=== PATIENT | male | born 1970 | race Caucasian/White ===

== ENCOUNTER 2018-11-28 13:55 | Emergency (ER) | payer SELFPAY ==
[2018-11-28 13:56] VITALS: BP 193/89; PULSE 74; RESP 16; TEMP 36.6; O2SAT 96; BMI 33.1
--- NOTE | 2018-11-28 14:54 | ED.VISSUMM ---
- ER Visit Summary Date of Service: 11/28/18 Chief Complaint: Lower paraspinal back pain History of Present Illness: The patient is a 47 M no significant past medical history. Patient states he does a lot of moving of furniture. Today he developed lower paraspinal back pain. Worse with movement. He denies any recent falls or trauma. He denies any dysuria or hematuria. No fever. He does state however he has been urinating frequently lately. He feels like he empties his bladder but he says especially at night he has to go again in about an hour. He has no history of diabetes but his dad has a history of diabetes. Patient denies any weight change. He denies any weakness in either upper or lower extremities. He denies any numbness or tingling. He denies any bowel or bladder incontinence. No prior back surgery. Physical Examination: Well-appearing middle-age male. Vital signs are stable. He is afebrile. He does not look septic or toxic. He is in no distress. HEENT exam unremarkable. Neck is nontender no lymphadenopathy. Lungs clear to auscultation bilaterally. Heart is regular rhythm without murmur. Abdomen is soft and nontender. Normal bowel sounds no peritoneal signs. Patient is moving all 4 extremities. Neurovascular intact. He has normal motor strength and sensation in both lower extremities. 5 out of 5 dorsi plantar flexion. Negative straight leg raise bilaterally. Normal medial thigh sensation. No cauda equina. No saddle anesthesia. Back his spine is nontender. There is no signs of trauma. There is no redness or warmth. He is bilateral paraspinal soft tissue tenderness consistent with the musculature of the lower spine. Neurologically is awake and alert with no focal motor or sensory deficits. Normal motor strength and sensation. He is able to stand and walk without any difficulty. Test Results: Urinalysis shows no signs of infection. No blood or white cells. There was protein in his urine and bowels and glucose along with some ketones. This may be consistent with the patient being new onset diabetes. There is a hemoglobin A1c pending. Bladder scan shows only 12 mL's of urine. No urinary retention. BG T equals 206. Emergency Department Course and Treatment: Patient's history and exam are consistent with myofascial para lumbar muscle strain. The urinary frequency is going to be evaluated and his father had diabetes so we will check a BG T. Repeat exam patient doing well at 16:25. I did add a hemoglobin A1c. He will need follow-up with the primary care physician as an outpatient to determine if his new onset diabetes. His sodium and on Metformin. Treatment Plan: Outpatient follow-up for evaluation for possible new onset diabetes. Disposition: Discharge Impression: Paralumbar back muscle strain Urinary frequency with hyperglycemia therefore rule out new onset diabetes Hemoglobin A1c pending. This note was generated with [employer] dictation software. It may contain incorrect words, spelling, and punctuation that were not noted in review of the chart prior to signing ED Disposition - Plan for ED Patient: Referrals: Care Physician,No Primary [Primary Care Provider] -
[2018-11-28 16:07] LABS: Color, Urine Yellow (Yellow); Glucose, Dipstick 1000 mg/dl (Normal); Ketone-Dipstick 5 mg/dl (Negative); Leukocyte Esterase-Dipstick Negative /ul (Negative); Nitrite-Dipstick Negative (Negative); Occult Blood-Urine Negative /ul (Negative); Protein-Dipstick 15 mg/dl (Negative); Urine Bilirubin Dipstick Negative (Negative); Urine Clarity Clear (Clear); Urine Urobilinogen Normal (Normal)
[2018-11-28 16:08] LABS: Bacteria 0 SEEN /hpf (None Seen); Mucous, Urine 0 SEEN /hpf (<or=2+); Red Blood Cells-Urine 0 SEEN /hpf (0-5); Squamous Epithelial Cells - UA 0 SEEN /hpf (0-5); White Blood Cells 0 SEEN /hpf (0-5)
[2018-11-28] MEDS: Ibuprofen 600 MG Tablet PO (16:16)
[2018-11-28 16:18] LABS: Hyaline Cast 0-5 SEEN /lpf (0-5)
[2018-11-28 16:26] LABS: Bedside Glucose 206 mg/dL (70-110)
--- NOTE | 2018-11-28 16:28 | ED.DEP ---
ED Disposition - Plan for ED Patient: Disposition: Home or Assisted Living Instructions: ED Sprain Strain Lumbar, ED Hyperglycemia New Susp Diabetes Referrals: Zia Urrutia MD [STAFF PHYSICIAN] - As soon as possible Additional Instructions: Her back pain is consistent with strain of the muscles in your back. Tylenol and Motrin for pain. Hot shower and massage. Your blood sugar is elevated at 206. He also had glucose in your urine this may be consistent with new onset diabetes. I sent a test called a hemoglobin A1c that will determine what your blood sugars have been over the last several months. He need to follow-up with a primary care physician and have this reevaluated and determine if you need to be started on oral diabetic medication.
--- NOTE | 2018-11-28 16:42 | ED.VISSUMM ---
- ER Visit Summary Date of Service: 11/28/18 Chief Complaint: [] History of Present Illness: The patient is a 47 M [] Physical Examination: [] Test Results: [] Emergency Department Course and Treatment: [] Treatment Plan: [] Disposition: [] Impression: [] This note was generated with [email or web address] dictation software. It may contain incorrect words, spelling, and punctuation that were not noted in review of the chart prior to signing ED Disposition - Plan for ED Patient: Disposition: Home or Assisted Living Instructions: ED Sprain Strain Lumbar, ED Hyperglycemia New Susp Diabetes Prescriptions: Cyclobenzaprine [Flexeril] 10 mg PO TID PRN #15 tab PRN Reason: Muscle Spasm Referrals: Zia Urrutia MD [STAFF PHYSICIAN] - As soon as possible Additional Instructions: Her back pain is consistent with strain of the muscles in your back. Tylenol and Motrin for pain. Hot shower and massage. Your blood sugar is elevated at 206. He also had glucose in your urine this may be consistent with new onset diabetes. I sent a test called a hemoglobin A1c that will determine what your blood sugars have been over the last several months. He need to follow-up with a primary care physician and have this reevaluated and determine if you need to be started on oral diabetic medication.
--- NOTE | 2018-11-28 16:48 | ED.RN ---
dr marti off shift. discussed pt request for flexeril. with dr martinez. rx ordered.
[2018-11-28 17:04] LABS: Hemoglobin A1c 9.4 % (4.2-6.3)
== END 2018-11-28 16:49 | disposition home or self-care (01) ==
PROVIDERS: Emergency Provider Emergency Medicine
DX: S39.012A Strain of muscle, fascia and tendon of lower back, initial encounter (principal); X58.XXXA Exposure to other specified factors, initial encounter; Y93.9 Activity, unspecified; Y92.9 Unspecified place or not applicable; Y99.9 Unspecified external cause status; R35.0 Frequency of micturition; R73.9 Hyperglycemia, unspecified; Z72.0 Tobacco use; Z83.3 Family history of diabetes mellitus
CPT/HCPCS: 81001; 82962; 83036; 99283

== ENCOUNTER 2022-02-05 14:53 | Emergency (ER) | payer BC, SELFPAY ==
[2022-02-05 14:54] VITALS: BP 149/82; PULSE 94; RESP 18; TEMP 36.8; O2SAT 99; BMI 31.5
--- NOTE | 2022-02-05 15:22 | EDS_ITS ---
HPI History of Present Illness Chief Complaint: General Illness Informant: patient and spouse/S.O. Onset/Context/Timing Onset: Days (3-4) Context: Gradual Onset Timing: Continuous Quality: Achy, coughing Location: All over Current Severity: Moderate Maximum Severity: Moderate Worsened by: Nothing Relieved by: nothing Associated Symptoms Associated Symptoms: Fevers up to 101.5, chills, malaise/fatigue, myalgias Associated Symptoms ED: cough Narrative Narrative: Patient with generalized symptoms, fevers, chills, cough for the last 3 to 4 days. Unvaccinated against COVID. He is an insulin-dependent diabetic. States he had some tingling in his fingers for an hour or so this morning but it was on both sides, symmetric and gone since then without weakness or other focal neurologic symptoms. Last time he checked his blood sugar was yesterday and it was 260, he states that is not unusual for him. No known sick contacts. Presents with family members who are not ill yet. No travel out of the area/country. [facility] Medical History (Updated 02/05/22 @ 21:[address] Desean Peterson MD) IDDM (insulin dependent diabetes mellitus) Home Medications levofloxacin 750 mg PO DAILY 5 Days #5 tab 02/05/22 [Rx Last Taken Unknown] Allergy/AdvReac Type Severity Reaction Status Date / Time naproxen [From Aleve] Allergy Other Verified 02/05/22 14:57 Social History Smoking Status: Current every day smoker tobacco type: cigarettes ROS ROS ED Constitutional Constitutional ED: Reports body ache(s), chills, fatigue, fever(s), headache(s) and malaise Eyes Eyes: Denies change in vision or diplopia ENT ENT ED: Denies rhinorrhea or sore throat Cardiovascular Cardiovascular: Denies chest pain or palpitations Respiratory/Chest Respiratory/Chest: Reports cough; Denies dyspnea or dyspnea on exertion Gastrointestinal Gastrointestinal: Denies abdominal pain, diarrhea, nausea or vomiting Genitourinary Genitourinary ED: Denies dysuria or hematuria Musculoskeletal Musculoskeletal: Denies back pain or neck pain Integumentary Denies abscess or rash Neurologic Neurologic: Reports headache(s); Denies paresthesias or weakness Psychiatric Psychiatric: Denies anxiety or suicidal thoughts EXAM Physical Exam Const Vital Signs: 02/05/22 14:54 02/05/22 15:46 02/05/22 16:48 Temperature 98.2 F Temperature Source Temporal Pulse Rate 94 79 Respiratory Rate 18 18 Respiratory Effort Normal Respiratory Pattern Normal Blood Pressure 149/82 H 126/68 H Blood Pressure Mean 104 87 Pulse Ox 99 92 Oxygen Delivery Method Room Air Room Air Positive well nourished and well developed Constitutional Narrative: Malaised-appearing, no distress General Appearance ED: well developed and NAD HEENT Reports moist mucous membranes normocephalic and atraumatic Eyes PERRL and EOMs intact bilaterally Neck full ROM and supple Resp normal respiratory effort and clear to auscultation bilaterally Cardio regular rate, regular rhythm and no murmurs Rate: Negative for tachycardic GI non-tender and non-distended Auscultation: normoactive bowel sounds Palpation: soft Back/Spine no CVA tenderness General Back: other FROM Extremity normal to inspection and no calf tenderness General Extremety ED: Negative for edema, pulses abnormal or tenderness General Extremity: Negative for edema or pulses abnormal Neuro oriented x3, CN's II-XII intact bilaterally and no sensory deficits noted Sensorium / Orientation: awake and alert Motor Exam: strength 5/5 throughout Skin no rashes or lesions noted and no wounds MDM MDM MDM Narrative Medical decision making narrative: 1 view chest x-ray showing bibasilar mild opacities on my interpretation. Radiology in agreement, unclear if these are infiltrates or atelectasis. His rapid COVID and rapid influenza swabs both returned negative. His blood sugar is 304, he is on a sliding scale and can treat that it himself at home. As I discussed with the patient, since he is unvaccinated I think this is COVID until proven otherwise. He needs PCR to determine if this is a false negative rapid test which is more likely to occur in this current phase of the pandemic when omicron type II is the most prominent subtype at this time. He understands this but did not want to wait for the swab and wanted to go home. I reviewed his results later, the PCR did return negative, I called him and told him this and discussed the prescription for Levaquin that I sent in for him to start when he can get it filled. He had no questions concerning this. It certainly is possible his chest x-ray represents bibasilar atelectasis, and he actually does have a viral etiology that is not bacterial. Lab Data Attestation: I reviewed the patient's lab results. Labs: Laboratory Results - last 24 hr 02/05/22 02/05/22 15:36 17:15 COVID-19 (NEGRA) Not Detected POC Glucose 304 H Radiography Diagnostic Testing: Clinical Impression(s) from Imaging Studies Chest X-Ray 02/05/22 15:50 IMPRESSION: Bibasilar opacities, right more than left, suggesting infiltrates or atelectasis. Electronically Signed: Jason Livingston MD ([place]) at 16:04 EDT , Discharge Plan Triage Chief Complaint: General Illness ED Provider: Desean Peterson Dx/Rx/DC Orders Clinical Impression: Acute viral syndrome, Atypical pneumonia Instructions: Coronavirus Disease 2019 (COVID-19): Caring for Yourself or Others Prescriptions: New levofloxacin 750 mg tablet 750 mg PO DAILY 5 Days Qty: 5 RF: 0 Primary Care Provider: Care Physician,No Primary Referrals: Cody Swift DO [STAFF PHYSICIAN] - 1 Week if not improving Activity Restrictions/Additional Instructions: Try to get a home portable pulse oximeter and closely watch your oxygen levels periodically. If you stay below 90% for more than a minute or so, and/or you are feeling like your breathing is getting worse, return to the emergency department for further evaluation. Disposition Disposition: Home, Self Care Discharge Date/Time: 02/05/22 17:22
[2022-02-05 15:46] LABS: Bedside Glucose 304 mg/dL (74-106)
--- NOTE | 2022-02-05 15:50 | RAD_ITS ---
STUDY: X-RAY CHEST REASON FOR EXAM: Male, 51 years old. cough, fever TECHNIQUE: AP COMPARISON: None. FINDINGS: Elevation of the right hemidiaphragm with ill-defined opacity in the right lung base. Mild reticulation in the retrocardiac left lower lobe. There is no demonstrated pleural abnormality. Normal size heart. Normal mediastinum and swapnil. Normal visualized pulmonary arteries. Normal visualized aortic arch and descending thoracic aorta. No acute bony process. There is no demonstrated abnormality of the visualized soft tissue structures of the upper abdomen. RAD/Chest 1 View (Portable) IMPRESSION: Bibasilar opacities, right more than left, suggesting infiltrates or atelectasis. Electronically Signed: Jason Livingston MD ([place]) at 16:04 EDT Reading Location ID and State: [id number] , Service support ,
[2022-02-05 16:48] VITALS: BP 126/68; PULSE 79; RESP 18; O2SAT 92
== END 2022-02-05 17:22 | disposition home or self-care (01) ==
PROVIDERS: Emergency Provider Emergency Medicine; Visit Provider Emergency Medicine
DX: J18.9 Pneumonia, unspecified organism (principal); E11.9 Type 2 diabetes mellitus without complications; Z79.4 Long term (current) use of insulin; B34.9 Viral infection, unspecified; M79.10 Myalgia, unspecified site; Z20.822 Contact with and (suspected) exposure to COVID-19; Z28.310 Unvaccinated for COVID-19; F17.210 Nicotine dependence, cigarettes, uncomplicated
CPT/HCPCS: 71045; 82962; 87428; 87635; 99282; U0003; U0005

== ENCOUNTER 2023-07-18 07:17 | Emergency (ER) | payer BC, SELFPAY ==
[2023-07-18 07:17] VITALS: BP 179/88; PULSE 80; RESP 16; TEMP 36.6; O2SAT 99; BMI 29.2
--- NOTE | 2023-07-18 07:37 | ED.VIS.DENTA ---
HPI History of Present Illness Chief Complaint: Dental Informant: patient Narrative Narrative: 52-year-old diabetic male on Trulicity presenting to the emergency department with right lower dental pain. Patient states he has had problems with this tooth for a time. He has seen dentist who recommended he get his hemoglobin A1c better controlled before procedures. He states he has been told he needs to have multiple teeth extracted. He notes recently the pain has increased. He denies any swelling. He has been taking ibuprofen a couple times a day which helps but he still waking up with pain over the past several days. No fevers. He denies any fever or facial erythema. No drainage of pus. The tooth has been broken and he is filed it because it was cutting his oral mucosa. [facility] Medical History IDDM (insulin dependent diabetes mellitus) Home Medications levofloxacin 750 mg tablet 750 mg PO DAILY 5 days #5 tabs 02/05/22 [Rx Last Taken Unknown] oxycodone-acetaminophen 5 mg-325 mg tablet 1 tab PO Q6H PRN PRN Pain 3 days #12 TABLETS 07/18/23 [Rx Last Taken Unknown] penicillin V potassium 250 mg tablet 500 mg (2 x 250 mg) PO 4X/DAY #40 tabs 07/18/23 [Rx Last Taken Unknown] Allergy/AdvReac Type Severity Reaction Status Date / Time naproxen [From Aleve] Allergy Other Verified 07/18/23 07:19 Social History Smoking Status: Current every day smoker tobacco type: cigarettes ROS ROS ED Constitutional Constitutional ED: Denies chills or weight loss Eyes Eyes: Denies change in vision or diplopia ENT ENT ED: Reports other Details: Dental pain radiating to the right side of neck ; Denies ear pain, rhinorrhea or sore throat Cardiovascular Cardiovascular: Denies chest pain, orthopnea, palpitations or racing heartbeat Respiratory/Chest Respiratory/Chest: Denies cough, dyspnea or orthopnea Gastrointestinal Gastrointestinal: Denies abdominal pain, diarrhea, nausea or vomiting Genitourinary Genitourinary ED: Denies dysuria, hematuria or urinary frequency Musculoskeletal Musculoskeletal: Reports neck pain; Denies arthralgias, back pain or myalgias Integumentary Denies abscess or rash Neurologic Neurologic: Denies headache(s) or weakness Psychiatric Psychiatric: Denies anxiety, depression, suicidal ideation or suicidal thoughts Endocrine Endocrinology: Denies polydipsia, polyphagia or polyuria Allergic/Immunologic Allergic/Immunologic ED: Denies mouth swelling, tongue swelling or urticaria EXAM Physical Exam Narrative Exam Narrative: Well-appearing male sitting comfortably on the bed. Const Vital Signs: 07/18/23 07:17 Temperature 97.9 F Temperature Source Temporal Pulse Rate 80 Respiratory Rate 16 Blood Pressure 179/88 H Blood Pressure Mean 118 Pulse Ox 99 Oxygen Delivery Method Room Air Positive well nourished and well developed General Appearance ED: well developed HEENT Reports normocephalic, head/scalp atraumatic and moist mucous membranes HEENT Narrative: Patient is handling secretions normally. There is no trismus. There is no facial erythema or swelling noted. There is multiple areas of dental decay. Floor the mouth is soft. Right lower molar is decayed with dental body loss. There is no focal abscess requiring drainage. Eyes PERRL and EOMs intact bilaterally Neck no lymphadenopathy, supple and no JVD Resp normal respiratory effort and clear to auscultation bilaterally Cardio regular rate, regular rhythm and no murmurs GI normal to inspection, nondistended, normoactive bowel sounds and non-tender Palpation: soft Back/Spine no CVA tenderness and normal ROM Extremity normal to inspection General Extremety ED: Negative for edema General Extremity: Negative for edema Neuro oriented x3 and CN's II-XII intact bilaterally Sensorium / Orientation: alert Motor Exam: strength 5/5 throughout Psych mental status grossly normal Mood & Affect: Negative for depressed or tearful Skin no rashes or lesions noted and no wounds MDM MDM MDM Narrative Medical decision making narrative: Patient was encouraged to take food with his ibuprofen. I will write for him to have some penicillin as well as a few [place]. He is to follow-up with dentistry. 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 He is to avoid smoking. Discharge Plan Triage Chief Complaint: Dental ED Provider: Hossein Lord Dx/Rx/DC Orders Clinical Impression: Dental cavity, Pain, dental Instructions: ED Dental Pain, ED Dental Cavity Prescriptions: New oxycodone-acetaminophen [oxycodone-acetaminophen] 5-325 mg tablet 1 tab PO Q6H PRN PRN (Reason: Pain) 3 Days Qty: 12 0RF penicillin V potassium 250 mg tablet 500 mg PO 4X/DAY Qty: 40 0RF No Action levofloxacin 750 mg tablet 750 mg PO DAILY 5 Days Qty: 5 0RF Primary Care Provider: Care Physician,No Primary Referrals: Care Physician,No Primary [Primary Care Provider] - Activity Restrictions/Additional Instructions: Be sure to take the entire course of antibiotics. Please follow-up with dentistry as soon as you are able. Continue to monitor your blood sugars and follow-up with your doctor. 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 Disposition Disposition: Home, Self Care
== END 2023-07-18 07:50 | disposition home or self-care (01) ==
LOC: ED 07:45
PROVIDERS: Emergency Provider Emergency Medicine; Visit Provider Emergency Medicine
DX: K08.89 Other specified disorders of teeth and supporting structures (principal); E11.9 Type 2 diabetes mellitus without complications; K02.9 Dental caries, unspecified; S02.5XXA Fracture of tooth (traumatic), initial encounter for closed fracture; X58.XXXA Exposure to other specified factors, initial encounter; F17.210 Nicotine dependence, cigarettes, uncomplicated
CPT/HCPCS: 99282

== ENCOUNTER 2025-07-22 11:10 | Emergency (ER) | payer BC, SELFPAY ==
[2025-07-22 11:11] VITALS: BP 181/87; PULSE 73; RESP 18; TEMP 35.7; O2SAT 98; BMI 27.8
--- NOTE | 2025-07-22 11:39 | ED.VIS.DENTA ---
HPI History of Present Illness Chief Complaint: Dental Narrative Narrative: 54-year-old male presents with dental pain that has had over the last 2 days. He relates history that has had problems with his teeth and has not seen a dentist in over a year and a half. He states when he was trying to have tooth extraction scheduled, his mother and he has not followed up. He is a smoker. He is having pain in his left upper jaw that he has had for the last day. He also noted a tooth in his right lower jaw that fell out. He presents because of the dental pain and he has been taking more than the recommended amount of ibuprofen without relief. No fevers or chills, no difficulty swallowing. [facility] Medical History IDDM (insulin dependent diabetes mellitus) Home Medications ?Medication ?Instructions ?Recorded ?Last Taken ?Type levofloxacin 750 mg tablet 750 mg PO DAILY 5 days #5 tabs 02/05/22 Unknown Rx oxycodone-acetaminophen 5 mg-325 1 tab PO Q6H PRN PRN Pain 3 days 07/18/23 Unknown Rx mg tablet #12 TABLETS penicillin V potassium 250 mg 500 mg (2 x 250 mg) PO 4X/DAY #40 07/18/23 Unknown Rx tablet tabs hydrocodone-acetaminophen 5-325mg 1 tab PO Q6H PRN PRN Pain 3 days 07/22/25 Unknown Rx 5mg-325mg #10 TABLETS penicillin V potassium 500 mg 500 mg PO 4X/DAY 10 days #40 tabs 07/22/25 Unknown Rx tablet Allergy/AdvReac Type Severity Reaction Status Date / Time naproxen (From Aleve) Allergy Other Verified 07/22/25 11:11 Social History Smoking Status: Current every day smoker tobacco type: cigarettes ROS ROS ED ROS Narrative Review of systems positive for dental pain, dental caries, and pain in the left upper jaw. No noted swelling. No fevers or chills. No exacerbating or alleviating factors. EXAM Physical Exam Narrative Exam Narrative: Afebrile. Vital signs noted. Nontoxic-appearing. Cardiovascular examination reveals regular rate and rhythm. Lungs clear to auscultation bilaterally. Examination of the mouth shows multiple areas of dental caries. There is no fluctuance of the gum. Tooth in question shows dental caries more towards the root of the tooth in the left upper jaw around tooth #15. There is no fluctuance in the gum, no palpable abscess. Airway patent, no drooling or trismus, no Adolfo angina or angioedema. Inspection of tooth #30 shows dental caries down to the gumline. Const Vital Signs: 07/22/25 11:11 Temperature 96.3 F L Temperature Source Temporal Pulse Rate 73 Respiratory Rate 18 Blood Pressure 181/87 H Blood Pressure Mean 118 Pulse Ox 98 Oxygen Delivery Method Room Air MDM MDM MDM Narrative Medical decision making narrative: I do not feel that differential is applicable. Is having pain from dental caries. He may have a periapical abscess. He needs to see a dentist soon as possible. Smoking cessation was discussed. I reviewed his prior ED visit and back in 2022, 2 years ago, he received penicillin and [place]. As he is not having any relief with ibuprofen, he was written for [place] and penicillin again and given a dental referral sheet. I feel he can be discharged follow-up. Disposition is discharged home in stable condition. History & Record Review Discussion w/independent historian: Patient Additional record(s) reviewed:: Prior ED visit (2022.) Discharge Plan Triage Chief Complaint: Dental ED Provider: Nathan Mojica Dx/Rx/DC Orders Clinical Impression: Pain, dental, Dental caries Instructions: ED Dental Pain, ED Dental Cavity Prescriptions: New penicillin V potassium 500 mg tablet 500 mg PO 4X/DAY 10 Days Qty: 40 0RF hydrocodone-acetaminophen 5-325 mg tablet 1 tab PO Q6H PRN PRN (Reason: Pain) 3 Days Qty: 10 0RF No Action levofloxacin 750 mg tablet 750 mg PO DAILY 5 Days Qty: 5 0RF oxycodone-acetaminophen [oxycodone-acetaminophen] 5-325 mg tablet 1 tab PO Q6H PRN PRN (Reason: Pain) 3 Days Qty: 12 0RF penicillin V potassium 250 mg tablet 500 mg PO 4X/DAY Qty: 40 0RF Primary Care Provider: Care Physician,No Primary Referrals: Care Physician,No Primary [Primary Care Provider, Medical] Activity Restrictions/Additional Instructions: Stop smoking. Follow-up with a dentist to soon as possible. Only take the recommended amount of ibuprofen as directed on the bottle. Print Language: Yi Disposition Disposition: Home, Self Care
--- OUTSIDE RECORDS SUMMARY | 2025-07-22 11:44 | XMS RPT_ITS | CCD ---
Author Organization [facility] Care Team Providers Care Party Bus Driver Name Role Phone Latrice Gomez Unavailable Unavailable PROVIDER, UNKNOWN Unavailable Unavailable No, PCP Unavailable Unavailable PROVIDER, UNKNOWN Unavailable Unavailable No, PCP Unavailable Unavailable Shailesh Hurt Unavailable Unavailable Brendon Arroyo PA-C Primary Care Provider [phone] PHYSICIAN, NONE Primary Care Physician Unavailab INDU Rahman MD Attending Unavailable PHYSICIAN, NONE Primary Care Unavailable STEPHENIE PHILLIPS DO Attending Unavailable PHYSICIAN, NONE Primary Care Unavailable Brendon Arroyo PA-C Primary Care Provider [phone] Brendon Arroyo PA-C Primary Care Provider [phone] Suppan DRAGLINE OPERATOR HELPER.OFFICE SUPPORT SPECIALIST, Kaela A Primary Care Provi landon Suppan DRAGLINE OPERATOR HELPER.OFFICE SUPPORT SPECIALIST, Kaela A Primary Care Provi landon DESEAN ABEL Attending Unavailable SUPPAN, KAELA A Primary Care Unavailable SUPPAN, KAELA A Attending Unavailable KP ARROYO Primary Care Unavailable SUPPAN, KAELA A Referring Unavailable KP ARROYO Primary Care Unavailable SUPPAN, KAELA A Attending Unavailable SUPPAN, KAELA A Primary Care Unavailable SUPPAN, KAELA A Referring Unavailable SUPPAN, KAELA A Primary Care Unavailable SUPPAN, KAELA A Referring Unavailable SUPPAN, KAELA A Primary Care Unavailable DESEAN ABEL Attending Unavailable SUPPAN, KAELA A Referring Unavailable SUPPAN, KAELA A Primary Care Unavailable CLARE SCHERER Attending Unavailable SUPPAN, KAELA A Primary Care Unavailable PHYSICIAN, NONE Primary Care Unavailable CK DE PAZ, RAY Montero Attending Unavail able Allergies Allergy Classification Reported Allergen(s) Allergy Type Date of Onset Reaction(s) Facility (2 sources) Naproxen Drug Allergy 02-05-2022 Other [facility] (19 sources) Naproxen; Translations: [NAPROXEN SODIUM] Drug Allergy 02-07-2020 Shortness of Breath [facility] Work Phone: Medications Current Medications Medication Drug Class(es) Dates Sig (Normalized) Sig (Original) acetaminophen 325 mg / HYDROcodone bitartrate 5 mg oral tablet (1 source) Opioid Agonist Start: 10-20-2022 End: 10-23-2022 take 1 tablet by mouth every four hours as needed for pain [place] 325- 5 mg oral tablet Dose = 1 tab(s), Oral, q4h, PRN for pain, X 3 day(s), # 12 tab(s), 0 Refill(s), Odontalgia, 95 Start Date: 10/20/22 Stop Date: 10/23/22 Status: Ordered acetaminophen 325 mg / oxyCODONE hydrochloride 5 mg oral tablet (1 source) Opioid Agonist Start: 07-18-2023 take 1 tablet by mouth every six hours as needed Oxycodone-Acetami nophen Active 1 TABLET PO EVERY 6 HOURS NEEDED 12 July 18, 2023 Start: 07-18-2023 take 1 tablet by mario th every six hours as needed Oxycodone-Acetaminophen Active 1 TABLET PO EVERY 6 HOURS NEEDED 12 July 18, 2023 Ascorbic Acid (18 sources) Vitamin C ascorbic acid (V ITAMIN C ORAL) Take by mouth. Active ascorbic acid (V ITAMIN C ORAL) Take by mouth. 0 Active Comment on above: Take by mouth. aspirin 325 mg oral tablet (2 sources) Platelet Aggregation Inhibitor, Nonsteroidal Anti-inflammatory Drug take 3 tablets by mouth once aspirin 325 mg tablet Take 975 mg by mouth one time only. Active atorvastatin 40 mg oral tablet (20 sources) HMG-CoA Reductase Inhibitor Start: 10-29-19 End: 08-15-20 take 1 tablet by mouth once daily atorvastatin (LIPITOR) 40 mg tablet Indications: Hyperlipidemia, mixed Take 1 tablet by mouth once daily. 90 tablet 3 08/15/2024 08/15/2025 Active Start: 02-14-2022 take 1 tablet by mario th once daily at bedtime for hyperlipidemia atorvastatin (LIPITOR) 40 mg tablet Indications: Hyperlipidemia, mixed , [place] cardiac risk >20% in next 10 years Take 1 tablet by mouth daily at bedtime. For cholesterol. 90 tablet 1 02/14/2022 Active Start: 07-02-2021 End: 02-14-2022 take 1 tablet by mouth once daily at bedtime for hyperlipidemia atorvastatin (LIPITOR) 20 mg tablet Indications: Hyperlipidemia, mixed Take 1 tablet by mouth daily at bedtime. For cholesterol. 90 tablet 1 07/02/2021 02/14/2022 Discontinued (Course of therapy completed) Comment on above: Take 1 tablet by mario daily at bedtime. For cholesterol. cholecalciferol 0.05 mg oral capsule (18 sources) Vitamin D Start: 2020 take 1 capsule by mouth once daily Cholecalciferol, Vitamin D3, 50 mcg (2,000 unit) cap Indications: Hyperlipidemia, mixed Take 1 capsule by mouth once daily. 90 capsule 3 07/02/2021 Active Comment on above: Take 1 capsule by mo cox [place]ett once daily. clindamycin 150 mg oral capsule (1 source) Lincosamide Antibacterial Start: 2022 End: 2022 clindamycin 150 mg oral capsule Dose : 450 mg = 3 cap(s), Oral, TID, X 7 day(s), # 63 cap(s), 0 Refill(s), 12/13/22 12:13:00 EST, Odontalgia, 95 Start Date: 12/06/22 Stop Date: 12/13/22 Status: Ordered cyclobenzaprine hydrochloride 10 mg oral tablet (1 source) Muscle Relaxant Start: 2024 End: 2024 cyclobenzaprine 10 mg oral tablet Dose : 10 mg = 1 tab(s), Oral, TID, X 7 day(s), # 21 tab(s), 0 Refill(s), 05/28/25 11:38:00 AM EDT Start Date: 05/21/25 Stop Date: 05/28/25 Status: Ordered Medication Dispense Status: Completed Quantity: 21.0 Unit: tab(s) Total Allowed Fills: 1 Fills Dispensed: 0 diclofenac sodium 0.03 mg/mg topical gel (9 sources) Nonsteroidal Anti-inflammatory Drug Start: 2023 End: 2024 Diclofenac Sodium 3 % gel Indications: Dupuytren contracture of right hand Apply 0.5 g to affected area two times a day. Right hand 30 g 2 08/15/2024 11/13/2024 Active dulaglutide (TRULICITY) 3 mg/0.5 mL pen injector (18 sources) Start: 2023 End: 2024 inject 3 mg by subcutaneous injection every week dulaglutide (TRULICITY) 3 mg/0.5 mL pen injector Indications: Uncontrolled type 2 diabetes mellitus with hyperglycemia (HCC) Inject 3 mg subcutaneously one time a week. 12 Each 1 08/15/2024 02/11/2025 Active Start: 03-17-2024 End: 08-15-2024 inject 3 mg by subcutaneous injection every week dulaglutide (TRULICITY) 3 mg/0.5 mL pen injector Indications: Uncontrolled type 2 diabetes mellitus with hyperglycemia (HCC) Inject 3 mg subcutaneously one time a week. 12 Each 1 03/17/2024 08/15/2024 Discontinued Start: 03-17-2024 End: 09-13-2024 inject 3 mg by subcutaneous injection every week dulaglutide (TRULICITY) 3 mg/0.5 mL pen injector Indications: Uncontrolled type 2 diabetes mellitus with hyperglycemia (HCC) Inject 3 mg subcutaneously one time a week. 12 Each 1 03/17/2024 09/13/2024 Active Start: 02-18-2024 End: 03-16-2024 inject 3 mg by subcutaneous injection every week dulaglutide (TRULICITY) 3 mg/0.5 mL pen injector Inject 3 mg subcutaneously one time a week. 12 Each 1 02/18/2024 03/16/2024 Discontinued Start: 02-18-2024 End: 08-16-2024 inject 3 mg by subcutaneous injection every week dulaglutide (TRULICITY) 3 mg/0.5 mL pen injector Inject 3 mg subcutaneously one time a week. 12 Each 1 02/18/2024 08/16/2024 Active Start: 02-13-2024 End: 02-17-2024 inject 3 mg by subcutaneous injection every week dulaglutide (TRULICITY) 3 mg/0.5 mL pen injector Inject 3 mg subcutaneously one time a week. 2 mL 0 02/13/2024 02/17/2024 Discontinued Start: 02-13-2024 End: 06-10-2024 inject 3 mg by subcutaneous injection every week dulaglutide (TRULICITY) 3 mg/0.5 mL pen injector Inject 3 mg subcutaneously one time a week. 2 mL 0 02/13/2024 03/14/2024 Active Start: 01-23-2023 inject 3 mg by subcu taneous injection every week dulaglutide (TRULICITY) 3 mg/0.5 mL pen injector Inject 3 mg subcutaneously one time a week. 12 Each 1 01/23/2023 Active Comment on above: Inject 3 mg subcutan eously one time a week. dulaglutide (TRULICITY) 4.5 mg/0.5 mL pen injector (4 sources) Start: End: inject 4.5 mg by subcutaneous injection every week dulaglutide (TRULICITY) 4.5 mg/0.5 mL pen injector Indications: Uncontrolled type 2 diabetes mellitus with hyperglycemia (HCC) Inject 4.5 mg subcutaneously one time a week. 6 mL 0 02/11/2024 02/13/2024 Discontinued Start: 02-11-2024 End: 05-11-2024 inject 4.5 mg by subcutaneous injection every week dulaglutide (TRULICITY) 4.5 mg/0.5 mL pen injector Indications: Uncontrolled type 2 diabetes mellitus with hyperglycemia (HCC) Inject 4.5 mg subcutaneously one time a week. 6 mL 0 02/11/2024 05/11/2024 Active Start: 11-03-2023 End: 02-11-2024 inject 4.5 mg by subcutaneous injection every week dulaglutide (TRULICITY) 4.5 mg/0.5 mL pen injector Inject 4.5 mg subcutaneously one time a week. 6 mL 0 11/03/2023 02/11/2024 Discontinued fluorouracil 5 mg/ml topical cream (4 sources) Nucleoside Metabolic Inhibitor Start: 02-11-2024 End: 03-10-2024 Fluorouracil 0.5 % cream Indications: Actinic keratosis Apply to affected area once daily for 28 days. 30 g 0 02/11/2024 03/10/2024 Active levoFLOXacin 750 mg oral tablet (1 source) Quinolone Antimicrobial Start: 02-05-2022 take 750 mg by mouth once daily Levofloxacin Active 750 MG PO DAILY 02 06February 05, 2022 12:00am naproxen 250 mg oral tablet (2 sources) Nonsteroidal Anti-inflammatory Drug Start: 05-21-2025 End: 05-31-2025 naproxen 250 mg oral tablet Dose : 250 mg = 1 tab(s), Oral, BID, X 10 day(s), # 20 tab(s), 0 Refill(s), 05/31/25 11:37:00 AM EDT Start Date: 05/21/25 Stop Date: 05/31/25 Status: Ordered Medication Dispense Status: Completed Quantity: 20.0 Unit: tab(s) Total Allowed Fills: 1 Fills Dispensed: 0 Start: 10-20-2022 End: 10-21-2022 naproxen 500 mg oral tablet Dose : 500 mg = 1 tab(s), Oral, BID, # 14 tab(s), 0 Refill(s), 10/21/22 13:15:00 EST, Odontalgia Start Date: 10/20/22 Stop Date: 10/21/22 Status: Ordered pantoprazole 40 mg delayed release oral tablet (17 sources) Proton Pump Inhibitor Start: 02-11-2024 End: 08-10-2025 take 1 tablet by mouth once daily pantoprazole DR (PROTONIX) 40 mg tablet Indications: Gastroesophageal reflux disease without esophagitis Take 1 tablet by mouth once daily. 90 tablet 3 08/15/2024 08/10/2025 Active penicillin v potassium 250 mg oral tablet (2 sources) Start: 07-18-2023 take 500 mg by mouth four times daily Penicillin V Potassium Active 500 MG PO 4 TIMES DAILY July 18, 2023 12:00am Start: 10-20-2022 End: 10-21-2022 penicillin V potassium 500 m g oral tablet Dose : 500 mg = 1 tab(s), Oral, q6hr, # 40 tab(s), 0 Refill(s), 10/21/22 13:16:00 EST, Odontalgia, 95 Start Date: 10/20/22 Stop Date: 10/21/22 Status: Ordered Zinc (18 sources) ZINC ORAL Take b y mouth. Active ZINC ORAL Take b y mouth. 0 Active Comment on above: Take by mouth. Completed/Discontinued Medications Medication Drug Class(es) Dates Sig (Normalized) Sig (Original) 24 hr buPROPion hydrochloride 150 mg extended release oral tablet (2 sources) Aminoketone Start: 10-25-2021 End: 02-14-2022 take 1 tablet by mouth once daily buPROPion XL (WELLBUTRIN XL) 150 mg 24 hr tablet Indications: Tobacco use disorder Take 1 tablet by mouth once daily. 30 tablet 5 02/14/2022 Active Comment on above: Take 1 tablet by mario th once daily. 0.5 ml dulaglutide 3 mg/ml auto-injector (6 sources) GLP-1 Receptor Agonist Start: 02-14-2022 End: 01-23-2023 Trulicity Pen 1.5 mg/0.5 mL subcutaneous solution Dose : 1.5 mg =, Subcutaneous, qWeek, 0 Refill(s), 0.5 mL/Pen Start Date: 10/20/22 Status: Ordered Medication Dispense Status: Completed Total Allowed Fills: 1 Fills Dispensed: 0 Start: 10-25-2021 End: 02-14-2022 inject 0.75 mg by subcutaneous injection every week dulaglutide (TRULICITY) 0.75 mg/0.5 mL pen injector Indications: Uncontrolled type 2 diabetes mellitus with hyperglycemia (HCC) Inject 0.75 mg subcutaneously one time a week. 4 Each 2 10/25/2021 02/14/2022 Discontinued Comment on above: Inject 1.5 mg subcut aneously one time a week. Inject once per week. Discard Pen After Inject 0.75 mg subcu taneously one time a week. 24 hr nicotine 0.875 mg/hr transdermal system (2 sources) Cholinergic Nicotinic Agonist Start: 10-25-19 End: 02-15-20 apply 1 dose transdermal route every twenty-four hours nicotine (NICODERM) 21 mg/24 hr Indications: Tobacco use disorder Apply 1 Patch as directed every 24 hours. 30 Patch 0 02/14/2022 Active Comment on above: Apply 1 Patch as dir ected every 24 hours. Problems Active Problems Problem Classification Problem Date Documented Date Episodic/Chronic Diabetes mellitus with complications (20 sources) Type II diabetes mellitus uncontrolled; Translations: [Type 2 diabetes mellitus with hyperglycemia] Onset: 10-28-2023 Chronic Disorders of lipid metabolism (4 sources) Mixed hyperlipidemia; Translations: [Mixed hyperlipidemia] Onset: 02-11-2024 Chronic Disorders of teeth and jaw (7 sources) Dental caries, unspecified; Translations: [Disorder of teeth AND/OR supporting structures] Onset: 10-05-2017 Episodic Esophageal disorders (3 sources) Gastroesophageal reflux disease without esophagitis; Translations: [Gastro-esophageal reflux disease without esophagitis] Onset: 08-15-2024 02-11-2024 Chronic Other connective tissue disease (5 sources) Dupuytren contracture of right palm; Translations: [Palmar fascial fibromatosis [Dupuytren]] 08-15-2024 Episodic Other connective tissue disease (4 sources) Triggering of digit; Translations: [Trigger finger, right ring finger] 09-12-2024 Episodic Other connective tissue disease (1 source) Dupuytren's disease of palm; Translations: [Palmar fascial fibromatosis [Dupuytren]] 09-12-2024 Episodic Other nervous system disorders (2 sources) Other chronic pain; Translations: [Other chronic pain] Onset: 10-05-2017 Chronic Other screening for suspected conditions (not mental disorders or infectious disease) (1 source) Patient encounter status; Translations: [Encounter for screening for malignant neoplasm of colon] Episodic Other skin disorders (1 source) Actinic keratosis; Translations: [Actinic keratosis] 02-11-2024 Episodic Pneumonia (except that caused by tuberculosis or sexually transmitted disease) (2 sources) Community acquired pneumonia; Translations: [Pneumonia, unspecified organism] Episodic Residual codes; unclassified (1 source) At risk of coronary heart disease ; Translations: [Other specified personal risk factors, not elsewhere classified] Episodic Sprains and strains (2 sources) Sprain of left shoulder; Translations: [Unspecified sprain of left shoulder joint, initial encounter] Onset: 05-21-2025 Episodic Substance-related disorders (5 sources) Nicotine dependence, unspecified, uncomplicated; Translations: [Tobacco user] Onset: 12-18-2017 Chronic Unclassified (2 sources) Other specified disorders of teeth and supporting structures; Translations: [Other specified disorders of teeth and supporting structures] Onset: 12-18-2017 Viral infection (2 sources) Acute viral disease; Translations: [Viral infection, unspecified] 02-13-2022 Episodic Past or Other Problems Problem Classification Problem Date Documented Da te Episodic/Chronic Allergic reactions (2 sources) Allergy status to other drugs, medicaments and biological substances status; Translations: [Allergy status to oth drug/meds/biol subst status] Onset: 12-18-2017 Episodic Diabetes mellitus without complication (18 sources) Type 2 diabetes mellitus; Translations: [Type 2 diabetes mellitus without complications] Onset: 02-07-2020 Resolved: 10-28-2023 02-07-2020 Chronic Immunizations and screening for infectious disease (3 sources) Suspected disease caused by 2019-nCoV; Translations: [Suspected COVID-19 virus infection] Onset: 08-15-2024 08-15-2024 Episodic Neoplasms of unspecified nature or uncertain behavior (2 sources) Neoplasm of uncertain behavior of skin of face; Translations: [Neoplasm of uncertain behavior of skin] Onset: 08-15-2024 08-15-2024 Episodic Other connective tissue disease (1 source) Palmar fascial fibromatosis [Dupuytren]; Translations: [Dupuytren contracture of right hand] Onset: 08-15-2024 Episodic Skull and face fractures (2 sources) Fracture of tooth (traumatic), sequela; Translations: [Fracture of tooth (traumatic), sequela] Onset: 12-18-2017 Episodic Spondylosis; intervertebral disc disorders; other back problems (2 sources) Lumbago with sciatica, left side; Translations: [Lumbago with sciatica, left side] Onset: 10-05-2017 Episodic Results Test Name Value Interpretation Reference Range Facility XR SHOULDER MINIMUM 2 VIEWS LEFTon 05-21-2025 XR SHOULDER MINIMUM 2 VIEWS LEFT ORIGINAL EXAMINATION: 4 XRAY VIEWS OF THE LEFT SHOULDER 05/21/2025 11:25 am COMPARISON: None. HISTORY: ORDERING SYSTEM PROVIDED HISTORY: Reason for Exam: fall FINDINGS: No acute fracture or dislocation. The humeral head is appropriately seated within the glenoid. The acromioclavicular and coracoclavicular distances are maintained. The included thoracic structures are unremarkable. IMPRESSION: No acute radiographic findings. Interpreted by: Hossein Dominguez Preliminary Report By: Hossein Dominguez Electronically signed By Hossein Dominguez Dictated Date: 05/21/2025 11:32:08 AM Prelim Date: 05/21/2025 11:33:43 AM Sign Date: 05/21/2025 11:33:43 AM [facility]ing [facility] ) EFRAIN HAMM ([id number]) 1970 M Date Time Provider Department 11/21/24 3:30 PM DESEAN ABEL During your visit today, we recorded the following information about you: Desean Abel MD 12/18/2024 10:33 PM Signed Desean Abel MD Department of Orthopaedics Orthopaedics [address] [facility] [address] Dept: [phone] Dept November 21, 2024 CHIEF COMPLAINT: Post Op of the Right Ring Finger (4 weeks 4 days post op Right ring trigger finger release, and Right ring finger palmar fasciectomy). HPI Patient here for post op visit. Patient states he returned to work last week. His employer does have him on light duty. He has a sharp that is intermittent in his finger. Taking Ibuprofen for the pain that does not help. ASSESSMENT: M65.341 Trigger ring finger of right hand (primary encounter diagnosis) M72.0 Dupuytren's contracture of right hand SUMMARY/PLAN: Hand is looking well. Appropriate post-op. Exam: Healing well. Good ROM. Supporting Information Below: Medications: Current Outpatient Medications Medication Sig atorvastatin (LIPITOR) 40 mg tablet Take 1 tablet by mouth once daily. dulaglutide (TRULICITY) 3 mg/0.5 mL pen injector Inject 3 mg subcutaneously one time a week. pantoprazole DR (PROTONIX) 40 mg tablet Take 1 tablet by mouth once daily. ascorbic acid (VITAMIN C ORAL) Take by mouth. Cholecalciferol, Vitamin D3, 50 mcg (2,000 unit) cap Take 1 capsule by mouth once daily. aspirin 325 mg tablet Take 975 mg by mouth one time only. (Patient not taking: Reported on 10/31/2024) blood sugar diagnostic (BLOOD GLUCOSE TEST) test strip Test blood sugar(s) 2 times daily. Dx: Type 2 DM - Uncontrolled E11.65 Insulin: No ZINC ORAL Take by mouth. (Patient not taking: Reported on 10/31/2024) No current facility-administered medications for this visit. Allergies: Aleve [Naproxen Sodium] Desean Abel MD Allergies As of Date: 11/21/2024 Noted Allergy Reaction ALEVE (NAPROXEN SODIUM) 02/07/2020 12 - Shortness of Breath Comments: Is able to tolerate Motrin Date Reviewed: 11/21/2024 Reviewed by: Treasure Kim MA - Fully Assessed Reason for Visit: Post Op [174] Cmt: 4 weeks 4 days post op Right ring trigger finger release, and Right ring finger palmar fasciectomy Primary Visit Diagnosis:Trigger ring finger of right hand [M65.341] Other Visit Diagnosis:Dupuytren's contracture of right hand [M72.0] Prescriptions as of 12/18/2024 - aspirin 325 mg tablet Take 975 mg by mouth one time only. - atorvastatin (LIPITOR) 40 mg tablet Take 1 tablet by mouth once daily. - dulaglutide (TRULICITY) 3 mg/0.5 mL pen injector Inject 3 mg subcutaneously one time a week. - pantoprazole DR (PROTONIX) 40 mg tablet Take 1 tablet by mouth once daily. - blood sugar diagnostic (BLOOD GLUCOSE TEST) test strip Test blood sugar(s) 2 times daily. Dx: Type 2 DM - Uncontrolled E11.65 Insulin: No - ascorbic acid (VITAMIN C ORAL) Take by mouth. - ZINC ORAL Take by mouth. - Cholecalciferol, Vitamin D3, 50 mcg (2,000 unit) cap Take 1 capsule by mouth once daily. Meds Comments as of 06/24/2021: Uses [facility] Problem List As Of Date 11/21/2024 Noted Resolved New onset type 2 diabetes mellitus (HCC) [E11.9]02/07/2020 10/28/2023 Uncontrolled type 2 diabetes mellitus with hype*10/28/2023 Encounter Status:Closed by DESEAN ABEL on 12/18/24 [facility]on 10-31-2024 CNOV Office Visit (ORTH[facility] ) HAMMADIN MonteroEFRAIN Terrell ([id number]) 1970 M Date Time Provider Department 10/31/24 3:00 PM CLARE SCHERER During your visit today, we recorded the following information about you: Treasure Kim MA 10/31/2024 3:38 PM Signed Patient presents with: Right Ring Finger - Post Op: 1 week 4 days post op Right ring trigger finger release and Right ring palmar fasciectomy AMB ROOMING INTAKE FLOWSHEET DATA Pain Pain Level: 6 Pain Location: (Right ring finger) Description: Aching Duration Amount of Time: (Post op) Frequency: Continuous Intervention/Comfort measure: (None) Sutures intact. No redness or drainage. Patient states he does have some pain in his finger when he moves it. Patient has cleaned the incision a couple of times with Peroxide. Taking no med's for the pain. Clare Scherer PA-C 10/31/2024 3:38 PM Signed Clare Scherer PA-C Department of Orthopaedics Orthopaedics [address] [facility] [address] Dept: [phone] Dept October 31, 2024 CHIEF COMPLAINT: Post Op of the Right Ring Finger (1 week 4 days post op Right ring trigger finger release and Right ring palmar fasciectomy). ASSESSMENT: M65.341 Trigger ring finger of right hand (primary encounter diagnosis) M72.0 Dupuytren's contracture of right hand SUMMARY/PLAN: Patient presents 1 week 4 days post op Right ring trigger finger release and Right ring palmar fasciectomy. He complains of a 6 out of 10 tightness across the palm. He has been applying hydrogen peroxide to the wound daily and has been keeping it wrapped with sports tape. He has not been elevating. Asked him to stop applying hydrogen peroxide to the wound, normal handwashing with soap and water and light lotion is appropriate. Encouraged him to start elevation and start working on some gentle scar massage. Will see him back in 1 month as planned. Exam: Incision site is well approximated without erythema or drainage. Mild but appropriate edema without ecchymosis. No locking or catching of the digits. Neurologically intact. Imaging: Deferred today Mr. Efrain Hamm was advised as to contrast therapies and/or to take analgesics/anti-inflam matories as needed and all contraindications were reviewed. Supporting Information Below: Medications: Current Outpatient Medications Medication Sig atorvastatin (LIPITOR) 40 mg tablet Take 1 tablet by mouth once daily. dulaglutide (TRULICITY) 3 mg/0.5 mL pen injector Inject 3 mg subcutaneously one time a week. pantoprazole DR (PROTONIX) 40 mg tablet Take 1 tablet by mouth once daily. blood sugar diagnostic (BLOOD GLUCOSE TEST) test strip Test blood sugar(s) 2 times daily. Dx: Type 2 DM - Uncontrolled E11.65 Insulin: No ascorbic acid (VITAMIN C ORAL) Take by mouth. Cholecalciferol, Vitamin D3, 50 mcg (2,000 unit) cap Take 1 capsule by mouth once daily. aspirin 325 mg tablet Take 975 mg by mouth one time only. (Patient not taking: Reported on 10/31/2024) Diclofenac Sodium 3 % gel Apply 0.5 g to affected area two times a day. Right hand (Patient not taking: Reported on 10/31/2024) ZINC ORAL Take by mouth. (Patient not taking: Reported on 10/31/2024) No current facility-administered medications for this visit. Allergies: Aleve [Naproxen Sodium] This note was partially generated using [employer] voice recognition system, and there may be some incorrect words, spellings, and punctuation that were not noted in checking the note before saving. CHARBEL Rudolph-C Allergies As of Date: 10/31/2024 Noted Allergy Reaction ALEVE (NAPROXEN SODIUM) 02/07/2020 12 - Shortness of Breath Comments: Is able to tolerate Motrin Date Reviewed: 10/31/2024 Reviewed by: Treasure Kim MA - Fully Assessed Reason for Visit: Post Op [174] Cmt: 1 week 4 days post op Right ring trigger finger release and Right ring palmar fasciectomy Primary Visit Diagnosis:Trigger ring finger of right hand [M65.341] Other Visit Diagnosis:Dupuytren's contracture of right hand [M72.0] Prescriptions as of 10/31/2024 - aspirin 325 mg tablet Take 975 mg by mouth one time only. - atorvastatin (LIPITOR) 40 mg tablet Take 1 tablet by mouth once daily. - dulaglutide (TRULICITY) 3 mg/0.5 mL pen injector Inject 3 mg subcutaneously one time a week. - pantoprazole DR (PROTONIX) 40 mg tablet Take 1 tablet by mouth once daily. - Diclofenac Sodium 3 % gel Apply 0.5 g to affected area two times a day. Right hand - blood sugar diagnostic (BLOOD GLUCOSE TEST) test strip Test blood sugar(s) 2 times daily. Dx: Type 2 DM - Uncontrolled E11.65 Insulin: No - ascorbic acid (VITAMIN C ORAL) Take by mouth. - ZINC ORAL Take by mouth. - Cholecalciferol, Vitamin D3, 50 mcg (2,000 unit) cap Take 1 capsule by mouth once daily. Meds Comments as of 06/24/2021: Uses [facility] [place] Problem List As Of Date (more content not included)... Normal [facility] OPERATIVE NOon 10-20-2024 OPERATIVE NO HNO ID: [id number] Author: DESEAN ABEL MD Service: Orthopaedic Surgery Author Type: Physician Type: Operative Report Filed: 10/20/2024 15:34 Note Text: OPERATIVE/PROCEDURE REPORT LOG ID: [id number] Surgery/Procedure Date: 10/20/2024 Incision/Procedure Start Time: 3:02 PM Incision Close/Procedure End Time: 3:23 PM Surgeon(s)/Procedurali st(s) and Terrazzo Journeyman(s): Surgeons and Role: * Desean Abel MD - Primary No Additional Staff Procedure(s): 1. right ring trigger release. 2. Right, ring finger, palmar fasciectomy. Anesthesia: Local. Procedure Details: On 10/20/2024, the patient was clearly identified in the preoperative area and marked accordingly on the right ring by myself. After a chloroprep swab, Local anesthetic was provided at the base of the ring near the A1 paddy site for a total of 4 mL of 1% lidocaine with Epinephrine. Patient was taken to the operative suite and placed in the supine position with an arm board on the right. All other bony landmarks were appropriately padded in standard fashion. The right upper extremity was sterilely prepped and draped in standard fashion. An appropriate time-out was conducted and all in the room were in agreement, signed consent form was on the chart. An incision was made along the distal palmar crease in line with the ring digit. I used skin hooks to use the 15blade, the dermis from the palmar cord, proximally. Once, the cord was isolated, also using the Littler's scissors, I resected a segment of about 1.5cm. Next, blunt dissection was taken down longitudinally to the flexor apparatus in the distal segment of the palmar incision after the dermis from palmar fascia. A one cm segment was removed distal to the incision, then the digital nerves were clearly identified and protected throughout the case with Crile retractors. Under direct visualization, I divided the A1 paddy site of the ring with a 15 blade. There was obvious tenosynovitis and a slight synovectomy was made with Littler scissors. I used a Ragnell retractor to pull the tendon up through the wound confirming its complete release. The wound was copiously irrigated. Hemostasis was observed with bipolar electrocautery. Closure was done with 4-0 Nylon sutures in horizontal mattress fashion for a total of 2. Xeroform gauze, an eye patch, light Landy wrap and Coban was used for final bandage. There were no complications during the procedure. Patient was safely awoken and transferred to the Postanesthetic Care Unit in stable condition. Pre-Op/Pre-Procedure Diagnosis: Right, ring trigger finger and palmar fascial Dupuytren cord. Post-Op/Post-Procedure Diagnosis: Same. Estimated Blood Loss: None Specimens: None sent. Implantable Devices: None Drains: None Complications: None The primary surgeon/proceduralist performed the entire procedure. SIGNATURE: Desean Abel MD PATIENT NAME: Efrain Hamm DATE: October 20, 2024 TIME: 3:28 PM PAGER/CONTACT #: Cher [facility] HAMMEF[facility]IN Montero ([id number]) 1970 M Date Time Provider Department 09/15/24 DESEAN ABEL During your visit today, we recorded the following information about you: Treasure Kim MA 09/15/2024 2:08 PM Signed Patient scheduled for Right ring trigger finger release and Right ring finger palmar fasciectomy on 10/20/24. Treasure Kim MA 09/20/2024 9:29 AM Signed Surgical request completed. Post op appointments scheduled and mailed to the patient. Treasure Kim MA 09/21/2024 3:17 PM Signed Surgery scheduled as requested Allergies As of Date: 09/15/2024 Noted Allergy Reaction ALEVE (NAPROXEN SODIUM) 02/07/2020 12 - Shortness of Breath Comments: Is able to tolerate Motrin Date Reviewed: 09/12/2024 Reviewed by: Lupis Lucio MA - Fully Assessed Reason for Visit: Schedule Surgery [1330] Primary Visit Diagnosis:Trigger ring finger of right hand [M65.341] Other Visit Diagnosis:Dupuytren's contracture of right hand [M72.0] Order(s):SURGICAL REQUEST - ELECTIVE (05/2020) [[id number]] Order #: [id number]: 1 Prescriptions as of 09/21/2024 - atorvastatin (LIPITOR) 40 mg tablet Take 1 tablet by mouth once daily. - dulaglutide (TRULICITY) 3 mg/0.5 mL pen injector Inject 3 mg subcutaneously one time a week. - pantoprazole DR (PROTONIX) 40 mg tablet Take 1 tablet by mouth once daily. - Diclofenac Sodium 3 % gel Apply 0.5 g to affected area two times a day. Right hand - blood sugar diagnostic (BLOOD GLUCOSE TEST) test strip Test blood sugar(s) 2 times daily. Dx: Type 2 DM - Uncontrolled E11.65 Insulin: No - ascorbic acid (VITAMIN C ORAL) Take by mouth. - ZINC ORAL Take by mouth. - Cholecalciferol, Vitamin D3, 50 mcg (2,000 unit) cap Take 1 capsule by mouth once daily. Meds Comments as of 06/24/2021: Uses [facility] [place] Problem List As Of Date 09/15/2024 Noted Resolved New onset type 2 diabetes mellitus (HCC) [E11.9]02/07/2020 10/28/2023 Uncontrolled type 2 diabetes mellitus with hype*10/28/2023 Letter Text Encounter Status:Closed by TREASURE KIM on 09/21/24 [facility] CNOVon 09-12-2024 CNOV Office Visit (ORTHWS ) DENNISEFRAIN Terrell ([id number]) 1970 M Date Time Provider Department 09/12/24 8:15 AM DESEAN ABEL During your visit today, we recorded the following information about you: Desean Abel MD 09/12/2024 9:16 AM Signed Desean Abel MD Department of Orthopaedics Orthopaedics [address] [facility] [address] Dept: [phone] Dept September 12, 2024 CHIEF COMPLAINT: New and Musculoskeletal Problem of the Right Hand HPI Patient here with complaints of right ring finger locking and pain in the palm x 1 month. Difficulty making a fist. He is right hand dominant. 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 ASSESSMENT: M65.341 Trigger ring finger of right hand (primary encounter diagnosis) M72.0 Dupuytren's disease of palm PLAN: Patient has both things going on with a moderately severe tendinitis in the digit resulting in a trigger finger but also a mild Dupuytren's nodule without contracture. I had a lengthy discussion with both of these topics with him and the treatment options for each. The risks, benefits, alternatives and potential complications on operative and nonoperative treatment were reviewed. He would like to pursue surgery for his finger tendinitis and at the same setting I will remove his Dupuytren's nodule as it is through the same incision. We have made the decision to move forward with a major orthopaedic surgery today, and this represents the moderate form of medical decision-making complexity. The patient's diagnosis of Trigger ring finger of right hand (primary encounter diagnosis) Dupuytren's disease of palm represents a chronic pathology/diagnosis/in jury that represents a current or possible direct threat to bodily function. FOLLOW UP INSTRUCTIONS: Will get him scheduled at his convenience OBJECTIVE: Mr. Efrain Hamm is a pleasant 53 year old in no apparent distress. Gen:There were no vitals taken for this visit. nl development, non obese, no deformities ENT: Normocephalic, normal hearing, moist mucosa CV: Pulses:Radial= 2+ and symmetric, capillary refill < 2 secs, no peripheral edema/varicosities Skin: no rash, bruising or lesions. Good turgor. Psych: cooperative and appropriate, alert and oriented x 3, good mood and affect. Musculoskeletal: Tender to palpation over the A1 paddy of the middle finger on the right, and just proximal to this he has a Dupuytren's nodule without a palpable cord and no contracture. Active locking and catching of the digit in question. Neurovascular exam intact. IMAGING: Impression IMPRESSION: Mild osteoarthrosis Nc Manager: RIDDHI Transcribe Date/Time: Aug 20 2024 8:01A Dictated by : RIVER ROUSE MD This examination was interpreted and the report reviewed and electronically signed by: RIVER ROUSE MD on Aug 20 2024 8:02AM EST Results-Findings * * *Final Report* * * DATE OF EXAM: Aug 15 2024 4:23PM WOX [id number] - XR HAND 3V PA/LAT/OBL RT / PROCEDURE REASON: Dupuytren contracture of right hand * * * * Physician Interpretation * * * * PROCEDURE: Right hand INDICATION: Dupuytren contracture of right hand .Painful contracture of ring finger of right hand x2 months. TECHNIQUE: XR HAND 3V PA/LAT/OBL RT COMPARISON: None FINDINGS: No acute fracture or dislocation. Joint spaces throughout the hand are maintained. 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 Minimal osteoarthritic spurring at all DIP joints. No erosion or focal soft tissue swelling. Supporting Subjective Information Below: Past Medical History: PAST MEDICAL HISTORY Diagnosis Date CAP (community acquired pneumonia) 02/06/2022 bibasilar opacities R>L suggesting infiltrate or atelectasis. Treated with Levaquin 500mg x 10 d with resolution Obese body habitus Past Surgical History: No past surgical history on file. Family History: FAMILY HISTORY Problem Relation Age of Onset Diabetes Father Social History: Social History Tobacco Use Smoking status: Every Day Current packs/day: 1.00 Average packs/day: 1 pack/day for 30.0 years (30.0 ttl pk-yrs) Types: Cigarettes Smokeless tobacco: Never Tobacco comments: 1-2 ppd. Wants to quit Vaping Use Vaping status: Never Used Substance Use Topics Alcohol use: Not Currently Drug use: Never Medications: Current Outpatient Medications Medication Sig atorvastatin (LIPITOR) 40 mg tablet Take 1 tablet by mouth once daily. dulaglutide (TRULICITY) 3 mg/0.5 mL pen injector Inject 3 mg subcutaneously one time a week. ZINC ORAL Take by mouth. Cholecalciferol, Vitamin D3, 50 mcg (2,000 unit) cap Take 1 capsule by mouth once daily. pantoprazole DR (PROTONIX) 40 mg tablet Take 1 tablet by mouth once daily. (Patient not taking: Reported on 09/12/2024) Diclofenac Sodium 3 % gel (more content not included)... Normal [facility] Kishor 08-23-2024 [facility] Telephone (4CQ) EFRAIN HAMM ([id number]) 1970 M Date Time Provider Department 08/23/24 KAELA MARTINEZ 4CQ During your visit today, we recorded the following information about you: Heydi Dutta 08/23/2024 10:32 AM Signed Pt would like derm consult faxed to [facility]. Thank you Kaela Ramirez LPN 08/23/2024 10:41 AM Signed Faxed to [facility] Allergies As of Date: 08/23/2024 Noted Allergy Reaction ALEVE (NAPROXEN SODIUM) 02/07/2020 12 - Shortness of Breath Comments: Is able to tolerate Motrin Date Reviewed: 08/15/2024 Reviewed by: Kaela Martinez APRN.OFFICE SUPPORT SPECIALIST - Fully Assessed Prescriptions as of 08/23/2024 - atorvastatin (LIPITOR) 40 mg tablet Take 1 tablet by mouth once daily. - dulaglutide (TRULICITY) 3 mg/0.5 mL pen injector Inject 3 mg subcutaneously one time a week. - pantoprazole DR (PROTONIX) 40 mg tablet Take 1 tablet by mouth once daily. - Diclofenac Sodium 3 % gel Apply 0.5 g to affected area two times a day. Right hand - blood sugar diagnostic (BLOOD GLUCOSE TEST) test strip Test blood sugar(s) 2 times daily. Dx: Type 2 DM - Uncontrolled E11.65 Insulin: No - ascorbic acid (VITAMIN C ORAL) Take by mouth. - ZINC ORAL Take by mouth. - Cholecalciferol, Vitamin D3, 50 mcg (2,000 unit) cap Take 1 capsule by mouth once daily. Meds Comments as of 06/24/2021: Uses [facility] Problem List As Of Date 08/23/2024 Noted Resolved New onset type 2 diabetes mellitus (HCC) [E11.9]02/07/2020 10/28/2023 Uncontrolled type 2 diabetes mellitus with hype*10/28/2023 Encounter Status:Closed by KAELA RAMIREZ on 08/23/24 [facility] EFRAIN HAMM ([id number]) 1970 M Date Time Provider Department 08/22/24 [facility] During your visit today, we recorded the following information about you: Loretta Jc LPN 08/22/2024 7:04 PM Signed ----- Message from Kaela Martinez sent at 08/22/2024 6:12 PM EST ----- Please let patient know that x-ray shows mild osteoarthritis of the hands. The orthopedic doctor will review the x-rays when he sees you for your Dupuytren's contracture. Kaela Ramirez LPN 08/23/2024 9:11 AM Signed Left message to return call June Banerjee RN 08/23/2024 10:28 AM Signed Pt called and is notified of providers results and instructions. Pt voices understanding. Transferred to scheduled to set up appt with Podiatry and Dermatology. June Banerjee RN Allergies As of Date: 08/22/2024 Noted Allergy Reaction ALEVE (NAPROXEN SODIUM) 02/07/2020 12 - Shortness of Breath Comments: Is able to tolerate Motrin Date Reviewed: 08/15/2024 Reviewed by: Kaela Martinez APRN.OFFICE SUPPORT SPECIALIST - Fully Assessed Reason for Visit: Results [95] Prescriptions as of 08/23/2024 - atorvastatin (LIPITOR) 40 mg tablet Take 1 tablet by mouth once daily. - dulaglutide (TRULICITY) 3 mg/0.5 mL pen injector Inject 3 mg subcutaneously one time a week. - pantoprazole DR (PROTONIX) 40 mg tablet Take 1 tablet by mouth once daily. - Diclofenac Sodium 3 % gel Apply 0.5 g to affected area two times a day. Right hand - blood sugar diagnostic (BLOOD GLUCOSE TEST) test strip Test blood sugar(s) 2 times daily. Dx: Type 2 DM - Uncontrolled E11.65 Insulin: No - ascorbic acid (VITAMIN C ORAL) Take by mouth. - ZINC ORAL Take by mouth. - Cholecalciferol, Vitamin D3, 50 mcg (2,000 unit) cap Take 1 capsule by mouth once daily. Meds Comments as of 06/24/2021: Uses [facility] [place] Problem List As Of Date 08/22/2024 Noted Resolved New onset type 2 diabetes mellitus (HCC) [E11.9]02/07/2020 10/28/2023 Uncontrolled type 2 diabetes mellitus with hype*10/28/2023 Encounter Status:Closed by JUNE BANERJEE on 08/23/24 [facility] CNPMacy 08-16-2024 CNPN Telephone ([facility]) EFRAIN HAMM ([id number]) 1970 M Date Time Provider Department 08/16/24 KAELA MARTINEZ During your visit today, we recorded the following information about you: Kaela Martinez APRN.CNP 08/16/2024 11:15 AM Signed Please let pt. Know that his blood sugar continues to improve. HgA1c now 7.2%. Improved. LDL, bad cholesterol, is worrisome high for a diabetic. Please take his atorvastatin every day. It will reduce his cardiovascular risk Hep C screen was negative Thyroid, magnesium, B12, Blood count, kidney AND liver function all normal. Estrella Vidal MA 08/16/2024 1:37 PM Signed Left message for patient to return call. Roman Stoll Krista, LPN 08/16/2024 1:58 PM Signed Pt notified of results and provider message. Deyanira Hancock LPN Allergies As of Date: 08/16/2024 Noted Allergy Reaction ALEVE (NAPROXEN SODIUM) 02/07/2020 12 - Shortness of Breath Comments: Is able to tolerate Motrin Date Reviewed: 08/15/2024 Reviewed by: Kaela Martinez APRN.CNP - Fully Assessed Prescriptions as of 08/16/2024 - atorvastatin (LIPITOR) 40 mg tablet Take 1 tablet by mouth once daily. - dulaglutide (TRULICITY) 3 mg/0.5 mL pen injector Inject 3 mg subcutaneously one time a week. - pantoprazole DR (PROTONIX) 40 mg tablet Take 1 tablet by mouth once daily. - Diclofenac Sodium 3 % gel Apply 0.5 g to affected area two times a day. Right hand - blood sugar diagnostic (BLOOD GLUCOSE TEST) test strip Test blood sugar(s) 2 times daily. Dx: Type 2 DM - Uncontrolled E11.65 Insulin: No - ascorbic acid (VITAMIN C ORAL) Take by mouth. - ZINC ORAL Take by mouth. - Cholecalciferol, Vitamin D3, 50 mcg (2,000 unit) cap Take 1 capsule by mouth once daily. Meds Comments as of 06/24/2021: Uses [facility] Problem List As Of Date 08/16/2024 Noted Resolved New onset type 2 diabetes mellitus (HCC) [E11.9]02/07/2020 10/28/2023 Uncontrolled type 2 diabetes mellitus with hype*10/28/2023 Encounter Status:Closed by DEYANIRA HANCOCK on 08/16/24 [facility] Telephone (INT[facility]) EFRAIN HAMM ([id number]) 1970 Date Time Provider Department 08/16/24 KAELA MARTINEZ INTMWS During your visit today, we recorded the following information about you: Raisa Jones LPN 08/16/2024 11:41 AM Signed Electronic CHARBEL rec'd and completed for diclofenac gel. Prior authorization approved Payer: Vladimir Note from payer: CHARBEL Case: [id number], Status: Approved, Coverage Starts on: 08/16/2024 12:00:00 AM, Coverage Ends on: 11/14/2024 12:00:00 AM. Approval Details Authorization number: [id number] Authorized from August 16, 2024 to November 14, 2024 Electronic appeal: Not supported View History Notes Time User Attachment Attachment received from payer. 08/16/2024 11:29 AM Cchs, Rx Priorauth In Document Pharmacy Benefits Open Encounter EFRAIN HAMM - INGEN BB CDH-N [id number] ([facility]) Covered: Retail, Mail Order, Specialty Unknown: Long-Term Care BIN: [id number] : 1970 Group ID: [id number] PCN: [id number] Legal sex: M Group name: [employer] Address: [address] [place] [address] [facility] [id number] Medication Being Authorized Diclofenac Sodium 3 % gel Apply 0.5 g to affected area two times a day. Right hand Dispense: 30 g Refills: 2 Start: 08/15/2024 End: 11/13/2024 Class: Normal Diagnoses: Dupuytren contracture of right hand This order has been released to its destination. To be filled at: [facility] [id number] - [place] [address] - [address] [facility], [place] - [phone] Raisa Jones LPN 08/16/2024 11:41 AM Signed Pharmacy notified. Allergies As of Date: 08/16/2024 Noted Allergy Reaction ALEVE (NAPROXEN SODIUM) 02/07/2020 12 - Shortness of Breath Comments: Is able to tolerate Motrin Date Reviewed: 08/15/2024 Reviewed by: Kaela Martinez APRN.OFFICE SUPPORT SPECIALIST - Fully Assessed Reason for Visit: Insurance Authorization [1693] Prescriptions as of 08/16/2024 - atorvastatin (LIPITOR) 40 mg tablet Take 1 tablet by mouth once daily. - dulaglutide (TRULICITY) 3 mg/0.5 mL pen injector Inject 3 mg subcutaneously one time a week. - pantoprazole DR (PROTONIX) 40 mg tablet Take 1 tablet by mouth once daily. - Diclofenac Sodium 3 % gel Apply 0.5 g to affected area two times a day. Right hand - blood sugar diagnostic (BLOOD GLUCOSE TEST) test strip Test blood sugar(s) 2 times daily. Dx: Type 2 DM - Uncontrolled E11.65 Insulin: No - ascorbic acid (VITAMIN C ORAL) Take by mouth. - ZINC ORAL Take by mouth. - Cholecalciferol, Vitamin D3, 50 mcg (2,000 unit) cap Take 1 capsule by mouth once daily. Meds Comments as of 06/24/2021: Uses [facility] Problem List As Of Date 08/16/2024 Noted Resolved New onset type 2 diabetes mellitus (HCC) [E11.9]02/07/2020 10/28/2023 Uncontrolled type 2 diabetes mellitus with hype*10/28/2023 Encounter Status:Closed by RAISA JONES on 08/16/24 Normal [facility] ALBUMIN/CREATININE RATIO, UR INEon 08-15-2024 Albumin DL <= 20 mg/L (U) [Mass/Vol] mg/dL Normal [facility] Comment on above: Order Comment: Speci men Type: URINE SPECIMENOrdering Facility: [facility] Address: [address] [place] [address] Performed By: #### U ACR ####[facility] LABCLIA [id number] [place] [address] [place] Albumin/Creatinine (U) [Mass ratio] <14 Normal <30 [facility] Comment on above: Order Comment: Speci men Type: URINE SPECIMENOrdering Facility: [facility] Address: [address] [place] [address] Result Comment: Adul t Male and Female Nephrotic Criteria: <30 mg/g is considered normal to mildly increased 30-300 mg/g is considered moderately increased >300 mg/g is considered severely increased KDIGO. (2013). KDIGO 2012 Clinical Practice Guideline for the Evaluation and Management of Chronic Kidney Disease. Official Journal of the International Society of Nephrology, 3(1), 1-150. Performed By: #### U ACR ####[facility] LABIA [id number] [place] [address] [place] Creatinine (U) [Mass/Vol] 85.5 mg/dL Normal 20.0-300.0 [facility] Comment on above: Order Comment: Speci men Type: URINE SPECIMENOrdering Facility: [facility] Address: [address] [place] [address] Performed By: #### U ACR ####[facility] LABIA [id number] [place] [address] [place] CBC W Auto Differential pane l (Bld)on 08-15-2024 Basophils (Bld) [#/Vol] 0.05 10*3/uL Normal <0.11 [facility] Comment on above: Order Comment: Speci men Type: BLOOD SPECIMENOrdering Facility: [facility] Address: [address] [place] [address] Performed By: #### 5 7021-8 ####[facility] LABCLIA [id number] [place] [address] [place] Basophils/100 WBC (Bld) 0.5 % Normal [facility] Comment on above: Order Comment: Speci men Type: BLOOD SPECIMENOrdering Facility: [facility] Address: [address] [place] [address] Performed By: #### 5 7021-8 ####[facility] LABCLIA [id number] [place] [address] [place] Differential cell count method Nom (Bld) Auto Normal [facility] Comment on above: Order Comment: Speci men Type: BLOOD SPECIMENOrdering Facility: [facility] Address: [address] [place] [address] Performed By: #### 5 7021-8 ####[facility] LABCLIA [id number] [place] [address] [place] Eosinophils (Bld) [#/Vol] 0.18 10*3/uL Normal <0.46 [facility] Comment on above: Order Comment: Speci men Type: BLOOD SPECIMENOrdering Facility: [facility] Address: [address] [place] [address] Performed By: #### 5 7021-8 ####[facility] LABCLIA [id number] [place] [address] [place] Eosinophils/100 WBC (Bld) 1.9 % Normal [facility] Comment on above: Order Comment: Speci men Type: BLOOD SPECIMENOrdering Facility: [facility] Address: [address] [place] [address] Performed By: #### 5 7021-8 ####[facility] LABCLIA [id number] [place] [address] [place] Erythrocyte distribution width (RBC) [Ratio] 13.3 % Normal 11.5-15.0 [facility] Comment on above: Order Comment: Speci men Type: BLOOD SPECIMENOrdering Facility: [facility] Address: [address] [place] [address] Performed By: #### 5 7021-8 ####[facility] LABCLIA [id number] [place] [address] [place] Hematocrit (Bld) [Volume fraction] 45.8 % Normal 39.0-51.0 [facility] Comment on above: Order Comment: Speci men Type: BLOOD SPECIMENOrdering Facility: [facility] Address: [address] [place] [address] Performed By: #### 5 7021-8 ####[facility] LABIA [id number] [place] [address] [place] Hemoglobin (Bld) [Mass/Vol] 15.0 g/dL Normal 13.0-17.0 [facility] Comment on above: Order Comment: Speci men Type: BLOOD SPECIMENOrdering Facility: [facility] Address: [address] [place] [address] Performed By: #### 5 7021-8 ####[facility] LABIA [id number] [place] [address] [place] Immature granulocytes (Bld) [#/Vol] 10*3/uL Normal <0.10 [facility] Comment on above: Order Comment: Speci men Type: BLOOD SPECIMENOrdering Facility: [facility] Address: [address] [place] [address] Performed By: #### 5 7021-8 ####[facility] LABIA [id number] [place] [address] [place] Immature granulocytes/100 WBC (Bld) 0.2 % Normal [facility] Comment on above: Order Comment: Speci men Type: BLOOD SPECIMENOrdering Facility: [facility] Address: [address] [place] [address] Performed By: #### 5 7021-8 ####[facility] LABCLIA [id number] [place] [address] [place] Lymphocytes (Bld) [#/Vol] 3.19 10*3/uL Normal 1.00-4.00 [facility] Comment on above: Order Comment: Speci men Type: BLOOD SPECIMENOrdering Facility: [facility] Address: [address] [place] [address] Performed By: #### 5 7021-8 ####[facility] LABCLIA [id number] [place] [address] [place] Lymphocytes/100 WBC (Bld) 33.3 % Normal [facility] Comment on above: Order Comment: Speci men Type: BLOOD SPECIMENOrdering Facility: [facility] Address: [address] [place] [address] Performed By: #### 5 7021-8 ####[facility] LABCLIA [id number] [place] [address] [place] MCH (RBC) [Entitic mass] 28.0 pg Normal 26.0-34.0 [facility] Comment on above: Order Comment: Speci men Type: BLOOD SPECIMENOrdering Facility: [facility] Address: [address] [place] [address] Performed By: #### 5 7021-8 ####[facility] LABCLIA [id number] [place] [address] [place] MCHC (RBC) [Mass/Vol] 32.8 g/dL Normal 30.5-36.0 [facility] Comment on above: Order Comment: Speci men Type: BLOOD SPECIMENOrdering Facility: [facility] Address: [address] [place] [address] Performed By: #### 5 7021-8 ####[facility] LABCLIA [id number] [place] [address] [place] MCV (RBC) [Entitic vol] 85.4 fL Normal 80.0-100.0 [facility] Comment on above: Order Comment: Speci men Type: BLOOD SPECIMENOrdering Facility: [facility] Address: [address] [place] [address] Performed By: #### 5 7021-8 ####[facility] LABCLIA [id number] [place] [address] [place] Monocytes (Bld) [#/Vol] 0.61 10*3/uL Normal <0.87 [facility] Comment on above: Order Comment: Speci men Type: BLOOD SPECIMENOrdering Facility: [facility] Address: [address] [place] [address] Performed By: #### 5 7021-8 ####[facility] LABCLIA [id number] [place] [address] [place] Monocytes/100 WBC (Bld) 6.4 % Normal [facility] Comment on above: Order Comment: Speci men Type: BLOOD SPECIMENOrdering Facility: [facility] Address: [address] [place] [address] Performed By: #### 5 7021-8 ####[facility] LABCLIA [id number] [place] [address] [place] Neutrophils (Bld) [#/Vol] 5.54 10*3/uL Normal 1.45-7.50 [facility] Comment on above: Order Comment: Speci men Type: BLOOD SPECIMENOrdering Facility: [facility] Address: [address] [place] [address] Performed By: #### 5 7021-8 ####[facility] LABCLIA [id number] [place] [address] [place] Neutrophils/100 WBC (Bld) 57.7 % Normal [facility] Comment on above: Order Comment: Speci men Type: BLOOD SPECIMENOrdering Facility: [facility] Address: [address] [place] [address] Performed By: #### 5 7021-8 ####[facility] LABCLIA [id number] [place] [address] [place] Nucleated RBC (Bld) [#/Vol] 10*3/uL Normal <0.01 [facility] Comment on above: Order Comment: Speci men Type: BLOOD SPECIMENOrdering Facility: [facility] Address: [address] [place] [address] Performed By: #### 5 7021-8 ####[facility] LABIA [id number] [place] [address] [place] Nucleated RBC/100 WBC (Bld) [Ratio] 0.0 /100 WBC Normal [facility] Comment on above: Order Comment: Speci men Type: BLOOD SPECIMENOrdering Facility: [facility] Address: [address] [place] [address] Performed By: #### 5 7021-8 ####[facility] LABIA [id number] [place] [address] [place] Platelet mean volume (Bld) [Entitic vol] 11.0 fL Normal 9.0-12.7 [facility] Comment on above: Order Comment: Speci men Type: BLOOD SPECIMENOrdering Facility: [facility] Address: [address] [place] [address] Performed By: #### 5 7021-8 ####[facility] LABIA [id number] [place] [address] [place] Platelets (Bld) [#/Vol] 212 10*3/uL Normal 150-400 [facility] Comment on above: Order Comment: Speci men Type: BLOOD SPECIMENOrdering Facility: [facility] Address: [address] [place] [address] Performed By: #### 5 7021-8 ####[facility] LABCLIA [id number] [place] [address] [place] RBC (Bld) [#/Vol] 5.36 10*6/uL Normal 4.20-6.00 [facility] Comment on above: Order Comment: Speci men Type: BLOOD SPECIMENOrdering Facility: [facility] Address: [address] [place] [address] Performed By: #### 5 7021-8 ####[facility] LABCLIA [id number] [place] [address] [place] WBC (Bld) [#/Vol] 9.59 10*3/uL Normal 3.70-11.00 [facility] Comment on above: Order Comment: Speci men Type: BLOOD SPECIMENOrdering Facility: [facility] Address: [address] [place] [address] Performed By: #### 5 7021-8 ####[facility] LABCLIA [id number] [address] [place] CNOVon 08-15-2024 CNOV Office Visit (FAMPWS ) EFRAIN HAMM ([id number]) 1970 M Date Time Provider Department 08/15/24 3:00 PM KAELA MARTINEZ FAMPWS During your visit today, we recorded the following information about you: Pulse Respiration Blood pressure Weight 76/minute 16/minute 142/80 88.9 kg Kaela Martinez, DRAGLINE OPERATOR HELPER.OFFICE SUPPORT SPECIALIST 08/15/2024 3:51 PM Signed This is a 53 year old male who presents today with: Patient presents with: 6 Month Exam HISTORY OF PRESENT ILLNESS: Efrain Hamm is a 53 year old male. 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 He pulled it open and had severe burning pain in palm of hand. Ring finger with Dupuytren's contracture on right. PAST MEDICAL HISTORY: PAST MEDICAL HISTORY Diagnosis Date CAP (community acquired pneumonia) 02/06/2022 bibasilar opacities R>L suggesting infiltrate or atelectasis. Treated with Levaquin 500mg x 10 d with resolution Obese body habitus No past surgical history on file. ALLERGIES Aleve [Naproxen Sodium] MEDICATIONS Current Outpatient Medications Medication Sig dulaglutide (TRULICITY) 3 mg/0.5 mL pen injector Inject 3 mg subcutaneously one time a week. pantoprazole DR (PROTONIX) 40 mg tablet Take 1 tablet by mouth once daily. atorvastatin (LIPITOR) 40 mg tablet Take 1 tablet by mouth once daily. ascorbic acid (VITAMIN C ORAL) Take by mouth. ZINC ORAL Take by mouth. Cholecalciferol, Vitamin D3, 50 mcg (2,000 unit) cap Take 1 capsule by mouth once daily. blood sugar diagnostic (BLOOD GLUCOSE TEST) test strip Test blood sugar(s) 2 times daily. Dx: Type 2 DM - Uncontrolled E11.65 Insulin: No No current facility-administered medications for this visit. FAMILY HISTORY Problem Relation Age of Onset Diabetes Father Social History Tobacco Use Smoking status: Every Day Current packs/day: 1.00 Average packs/day: 1 pack/day for 30.0 years (30.0 ttl pk-yrs) Types: Cigarettes Smokeless tobacco: Never Tobacco comments: 1-2 ppd. Wants to quit Vaping Use Vaping status: Never Used Substance Use Topics Alcohol use: Not Currently Drug use: Never REVIEW OF SYSTEMS GENERAL: Some weight loss, no malaise or fevers/chills HEENT: Negative for frequent or significant headaches, No changes in hearing or vision. NECK: Negative for lumps, goiter, pain and significant neck swelling RESPIRATORY: Smokers cough, + hemoptysis, no wheezing, no dyspnea or shortness of breath CARDIOVASCULAR: Negative for chest pain, leg swelling, orthopnea, or palpitations GI: No nausea, vomiting, or diarrhea/constipation. No hematochezia/melena. + episodes of frequent heartburn or reflux symptoms. : No history of dysuria, + frequency, no incontinence MUSCULOSKELETAL: Negative for joint pain or swelling except right hand. SKIN: Skin lesions on nose and left forearm- pharmacy didn't have 5 FU cream so discontinued, no rash, and itching ENDOCRINE: Negative for cold or heat intolerance, polyuria, polydipsia and goiter NEURO: No history of headaches, syncope, paralysis, seizures or tremors MOOD: Negative for depression, anxiety, or suicidal ideation. Smokes 1- 1.5 ppd X 35 years EXAM: BP 142/80 Pulse 76 Resp 16 Wt 88.9 kg (196 lb) SpO2 95% BMI 29.16 kg/m? General Appearance: well appearing, alert and oriented. Skin: no suspicious lesion, no rash, no open sores Head: normocephalic, no obvious masses, lesions, tenderness or abnormalities. SKIN: bridge of nose with 2mm erosion, chow discoloration Neck: trachea midline, thyroid without mass or nodularity, thyroid moves normally with swallow, no regional lymphadenopathy. Carotids normal upstroke, no bruit or thrill. Back:no pain to palpation of vertebrae, no percussion tenderness over spine. Lungs: Chest rise AND fall symmetrical, Lungs clear to auscultation. No wheezing or rhonchi. No rales. Abdomen: normal bowel sounds, no mass, non-tender Heart: S1S2, no gallop, no rub, no murmur Lymph Nodes: no lymphadenopathy. Ext: no clubbing, cyanosis or edema. Mood: bright affect, speech clear, answers questions appropriately LABS: check labs ASSESSMENT/PLAN: 1. Dupuytren contracture of right hand - ICD9: 728.6, ICD10: M72.0 (primary diagnosis) Right hand- painful - XR HAND GENERAL 3V PA/LAT/OBL RIGHT - CONSULT PANEL TO ORTHOPAEDICS - DICLOFENAC 3 % TOPICAL GEL 2. Hyperlipidemia, mixed - ICD9: 272.2, ICD10: E78.2 - Control undetermined, due for labs - Counseled on healthy diet and regular exercise - ATORVASTATIN 40 MG TABLET - LIPID PANEL, NONFASTING 3. Uncontrolled type 2 diabetes mellitus with hyperglycemia (HCC) - ICD9: 250.02, ICD10: E11.65 - Control undetermined, due for labs - Continue current medications - DULAGLUTIDE 3 MG/0.5 ML SUBCUTANEOUS PEN INJECTOR - HEMOGLOBIN A1C - COMPREHENSIVE METABOLIC PANEL - (more content not included)... Normal [facility] metabolic 2000 panelon 08-15-2024 Albumin [Mass/Vol] 4.3 g/dL Normal 3.9-4.9 [facility] Comment on above: Order Comment: Speci men Type: BLOOD SPECIMENOrdering Facility: [facility] Address: [address] [place] [address] Performed By: #### L IPNF, 6-3, 73184-1, 04708-8 ####[facility] LABCLIA [id number] [place] [address] [place] ALP [Catalytic activity/Vol] 69 U/L Normal 38-113 [facility] Comment on above: Order Comment: Speci men Type: BLOOD SPECIMENOrdering Facility: [facility] Address: [address] [place] [address] Performed By: #### L IPNF, 6-3, , 05157-9 ####[facility] LABCLIA [id number] [place] [address] [place] ALT [Catalytic activity/Vol] 17 U/L Normal 10-54 [facility] Comment on above: Order Comment: Speci men Type: BLOOD SPECIMENOrdering Facility: [facility] Address: [address] [place] [address] Performed By: #### L IPNF, 3015-3, , 16104-8 ####[facility] LABCLIA [id number] [place] [address] [place] Anion gap [Moles/Vol] 14 mmol/L Normal 8-15 [facility] Comment on above: Order Comment: Speci men Type: BLOOD SPECIMENOrdering Facility: [facility] Address: [address] [place] [address] Performed By: #### L IPNF, 3015-3, , 91454-5 ####[facility] LABCLIA [id number] [address] [address] [place] AST [Catalytic activity/Vol] 15 U/L Normal 14-40 [facility] Comment on above: Order Comment: Speci men Type: BLOOD SPECIMENOrdering Facility: [facility] Address: [address] [place] [address] Performed By: #### L IPNF, 3, , ####[facility] LABCLIA [id number] [address] [address] [place] Bilirubin [Mass/Vol] 0.3 mg/dL Normal 0.2-1.3 [facility] Comment on above: Order Comment: Speci men Type: BLOOD SPECIMENOrdering Facility: [facility] Address: [address] [place] [address] Performed By: #### L JO, 3015-3, , ####[facility] LABCLIA [id number] [place] [address] [place] Calcium [Mass/Vol] 9.4 mg/dL Normal 8.5-10.2 [facility] Comment on above: Order Comment: Speci men Type: BLOOD SPECIMENOrdering Facility: [facility] Address: [address] [place] [address] Performed By: #### L JO, 3, , ####[facility] LABCLIA [id number] [place] [address] [place] Chloride [Moles/Vol] 101 mmol/L Normal 98-107 [facility] Comment on above: Order Comment: Speci men Type: BLOOD SPECIMENOrdering Facility: [facility] Address: [address] [place] [address] Performed By: #### L IPNF, 3015-12, , ####[facility] LABCLIA [id number] [place] [id number] [place] CO2 [Moles/Vol] 25 mmol/L Normal 22-30 [facility] Comment on above: Order Comment: Speci men Type: BLOOD SPECIMENOrdering Facility: [facility] Address: [address] [place] [address] Performed By: #### L JO, 6-3, , ####[facility] LABCLIA [id number] [address] [address] [place] Creatinine [Mass/Vol] 0.79 mg/dL Normal 0.73-1.22 [facility] Comment on above: Order Comment: Speci men Type: BLOOD SPECIMENOrdering Facility: [facility] Address: [address] [place] [address] Performed By: #### L JO, 6-3, , ####[facility] LABCLIA [id number] [place] [address] [place] Creatinine and Glomerular filtration rate.predicted panel (S/P/Bld) 106 mL/min/1.73m??? Normal >=60 [facility] Comment on above: Order Comment: Speci men Type: BLOOD SPECIMENOrdering Facility: [facility] Address: [address] [place] [address] Result Comment: Mariam mated Glomerular Filtration Rate (eGFR) is calculated using the 2020 CKD-EPI creatinine equation. This equation utilizes serum creatinine, sex, and age as parameters. The creatinine assay has traceable calibration to isotope dilution-mass spectrometry. Refer to KDIGO guidelines for clinical interpretation. In patients with unstable renal function, e.g. those with acute kidney injury, the eGFR may not accurately reflect actual GFR. Performed By: #### L JO, 6-3, , ####[facility] LABCLIA [id number] [place] [address] [place] Glucose [Mass/Vol] 143 mg/dL High 74-99 [facility] Comment on above: Order Comment: Speci men Type: BLOOD SPECIMENOrdering Facility: [facility] Address: [address] [place] [address] Result Comment: The [place] Diabetes Association (ADA) provides guidance for cutoff values for fasting glucose and random glucose. The ADA defines fasting as no caloric intake for at least 8 hours. Fasting plasma glucose results between 100 to 125 mg/dL indicate increased risk for diabetes (prediabetes). Fasting plasma glucose results greater than or equal to 126 mg/dL meet the criteria for diagnosis of diabetes. In the absence of unequivocal hyperglycemia, results should be confirmed by repeat testing. In a patient with classic symptoms of hyperglycemia or hyperglycemic crisis, random plasma glucose results greater than or equal to 200 mg/dL meet the criteria for diagnosis of diabetes. Reference: Standards of Medical Care in Diabetes 2016, [place] Diabetes Association. Diabetes Care. 2016.39(Suppl 1). Performed By: #### L JO, 3015-3, , ####[facility] LABCLIA [id number] [place] [address] [place] Potassium [Moles/Vol] 4.2 mmol/L Normal 3.7-5.1 [facility] Comment on above: Order Comment: Speci men Type: BLOOD SPECIMENOrdering Facility: [facility] Address: [address] [place] [address] Performed By: #### L JO, 3, , ####[facility] LABIA [id number] [place] [address] [place] Protein [Mass/Vol] 6.7 g/dL Normal 6.3-8.0 [facility] Comment on above: Order Comment: Speci men Type: BLOOD SPECIMENOrdering Facility: [facility] Address: [address] [place] [address] Performed By: #### L JO, 3, , ####[facility] LABCLIA [id number] [place] [address] [place] Sodium [Moles/Vol] 140 mmol/L Normal 136-144 [facility] Comment on above: Order Comment: Speci men Type: BLOOD SPECIMENOrdering Facility: [facility] Address: [address] [place] [address] Performed By: #### L IPNF, 6-3, , ####[facility] LABCLIA [id number] [place] [address] [place] Urea nitrogen [Mass/Vol] 16 mg/dL Normal 9-24 [facility] Comment on above: Order Comment: Speci men Type: BLOOD SPECIMENOrdering Facility: [facility] Address: [address] [place] [address] Performed By: #### L IPNF, 6-3, , ####[facility] LABCLIA [id number] [place] [address] [place] HCV Ab Ser Qlon 08-15-2024 HCV Ab Ql (S) Negative Normal Negative [facility] Comment on above: Order Comment: Speci [facility] Type: BLOOD SPECIMENOrdering Facility: [facility] Address: [address] [place] [address] Result Comment: The result suggests no evidence of active infection with Hepatitis C virus. Should recent infection be suspected, repeat testing may be considered 4-6 weeks after this draw. Performed By: #### 1 6128-1 ####[facility] LABCLIA [id number] [place] [address] [place] HbA1c (Bld)on 08-15-2024 Average glucose Estimated from glycated hemoglobin (Bld) [Mass/Vol] 160 mg/dL Normal [facility] Comment on above: Order Comment: [facility] Type: BLOOD SPECIMENOrdering Facility: [facility] Address: [address] [place] [address] Result Comment: eAG: (Estimated average glucose) is a calculated value from HgbA1c and is customer contact representative of the average blood glucose level in the last 2-3 month period. Performed By: #### 5 5454-3 ####[facility] LABCLIA [id number] [place] [address] [place] HbA1c (Bld) [Mass fraction] 7.2 % High 4.3-5.6 [facility] Comment on above: Order Comment: Justin llamas Type: BLOOD SPECIMENOrdering Facility: [facility] Address: [address] [place] [address] Result Comment: [place] Diabetes Association guidelines indicate that patients with HgbA1c in the range 5.7-6.4% are at increased risk for development of diabetes, and intervention by lifestyle modification may be beneficial. HgbA1c greater or equal to 6.5% is considered diagnostic of diabetes. Performed By: #### 5 5454-3 ####[facility] LABCLIA [id number] [address] [place] LIPID PANEL, NONFASTINGon Cholesterol [Mass/Vol] 242 mg/dL High <200 [facility] Comment on above: Order Comment: Justin llamas Type: BLOOD SPECIMENOrdering Facility: [facility] Address: [address] [place] [address] Result Comment: <200 mg/dL, Desirable 200-239 mg/dL, Borderline high >239 mg/dL, High Performed By: #### L JO, 6-3, , 12881-2 ####[facility] LABCLIA [id number] [address] [place] HDL CHOLESTEROL, NF 41 mg/dL Normal >39 [facility] Comment on above: Order Comment: Justin llamas Type: BLOOD SPECIMENOrdering Facility: [facility] Address: [address] [place] [address] Result Comment: 40-5 9 mg/dL, Acceptable >59 mg/dL, High: Negative risk factor for coronary heart disease <40 mg/dL, Low: Positive risk factor for coronary heart disease Performed By: #### L IPMARK, 3016-3, , 69187-0 ####[facility] LABCLIA [id number] [address] [place] LDL CHOLESTEROL, NF 154 mg/dL High <100 [facility] Comment on above: Order Comment: Justin llamas Type: BLOOD SPECIMENOrdering Facility: [facility] Address: [address] [place] [address] Result Comment: <100 mg/dL, Optimal 100-129 mg/dL, Near optimal/above optimal 130-159 mg/dL, Borderline high 160-189 mg/dL, High >189 mg/dL, Very high Secondary prevention optimal LDL Cholesterol levels are recommended to be < 70 mg/dL Performed By: #### L IPNF, 6-3, 83605-7, 30384-4 ####[facility] LABCLIA [id number] [address] [place] LDL/HDL RATIO, NF 3.76 mg/dL High <2.54 [facility] Comment on above: Order Comment: Justin llamas Type: BLOOD SPECIMENOrdering Facility: [facility] Address: [address] [place] [address] Result Comment: Refe rence: 1. National Cholesterol Education Program ATP III Guideline At-A-Glance Quick Desk Reference: National Heart, Lung, and Blood [place]. National Institutes of Health. 2001: NIH Publication No. 01-3305. 2. An International Atherosclerosis Society position paper: global recommendations for the management of dyslipidemia: executive summary, Atherosclerosis. 2014: 232(2):410-413. Performed By: #### L IPNF, 6-3, , ####[facility] LABCLIA [id number] [address] [place] NON HDL CHOL, NF 201 mg/dL High <130 [facility] Comment on above: Order Comment: Justin llamas Type: BLOOD SPECIMENOrdering Facility: [facility] Address: [address] [place] [address] Result Comment: <130 mg/dL, Optimal 130-159 mg/dL, Near optimal/above optimal 160-189 mg/dL, Borderline high 190-219 mg/dL, High >219 mg/dL, Very high Secondary prevention optimal non HDL Cholesterol levels are recommended to be <100 mg/dL Performed By: #### L JO, 3015-3, , ####[facility] LABCLIA [id number] [address] [address] [place] T CHOL/HDL RATIO NF 5.90 mg/dL High <5.10 [facility] Comment on above: Order Comment: Speci men Type: BLOOD SPECIMENOrdering Facility: [facility] Address: [address] [place] [address] Performed By: #### L JO, 3, , ####[facility] LABCLIA [id number] [place] [address] [place] TRIGLYCERIDES, NF 235 mg/dL High <150 [facility] Comment on above: Order Comment: Speci men Type: BLOOD SPECIMENOrdering Facility: [facility] Address: [address] [place] [address] Result Comment: <150 mg/dL, Normal 150-199 mg/dL, Borderline high 200-499 mg/dL, High >499 mg/dL, Very high Performed By: #### Jaswinder OSORIO, 3015-12, , ####[facility] LABCLIA [id number] [place] [address] [place] VLDL CHOLESTEROL, NF 47 mg/dL High <30 [facility] Comment on above: Order Comment: Speci men Type: BLOOD SPECIMENOrdering Facility: [facility] Address: [address] [place] [id number] Performed By: #### L JO, 3015-12, , ####[facility] LABCLIA [id number] [place] [id number] [place] Magnesium [facility] 08-15 Magnesium [Mass/Vol] 2.3 mg/dL Normal 1.7-2.3 [facility] Comment on above: Order Comment: Speci men Type: BLOOD SPECIMENOrdering Facility: [facility] Address: [address] [place] [address] Performed By: #### L IPNF, 3016-3, 85968-7, 32678-7 ####[facility] LABCLIA [id number] [place] [address] [place] TSH SerPl-aCncon 08-15-2024 TSH Qn 2.050 m[IU]/L Normal 0.270-4.200 [facility] Comment on above: Order Comment: Speci men Type: BLOOD SPECIMENOrdering Facility: [facility] Address: [address] [place] [address] Performed By: #### L IPNF, 3016-3, 16225-8, 52468-1 ####[facility] LABCLIA [id number] [place] [address] [place] Vit B12 SerPl-mCncon 024 Cobalamin (Vitamin B12) [Mass/Vol] 653 pg/mL Normal 232-1245 [facility] Comment on above: Order Comment: Speci men Type: BLOOD SPECIMENOrdering Facility: [facility] Address: [address] [place] [address] Performed By: #### 2 132-9 ####[facility] LABIA [id number] [place] [address] [place] XR HAND 3V PA/LAT/OBL RTon 1 10-15-2023 XR HAND 3V PA/LAT/OBL RT * * *Final Report* * * DATE OF EXAM: Aug 15 2024 4:23PM WOX [id number] - XR HAND 3V PA/LAT/OBL RT / PROCEDURE REASON: Dupuytren contracture of right hand * * * * Physician Interpretation * * * * PROCEDURE: Right hand INDICATION: Dupuytren contracture of right hand .Painful contracture of ring finger of right hand x2 months. TECHNIQUE: XR HAND 3V PA/LAT/OBL RT COMPARISON: None FINDINGS: No acute fracture or dislocation. Joint spaces throughout the hand are maintained. 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 Minimal osteoarthritic spurring at all DIP joints. No erosion or focal soft tissue swelling. IMPRESSION: Mild osteoarthrosis Nc Manager: RIDDHI Transcribe Date/Time: Aug 20 2024 8:01A Dictated by : RIVER ROUSE MD This examination was interpreted and the report reviewed and electronically signed by: RIVER ROUSE MD on Aug 20 2024 8:02AM EST [id number] [facility] C[facility]N Tele[facility] (FAMPWS) EFRAIN HAMM ([id number]) 1970 M Date Time Provider Department 03/16/24 Brendon ARROYO [facility] During your visit today, we recorded the following information about you: Luciana Rocha 03/16/2024 2:05 PM Signed Patient said he tried to refill his Trulicity rx at [facility] in [place] and was told there are no refills. Said he is supposed t be getting 4.5 mg, but has had to get the 3 mg because the pharmacy didn't have the 4.5 mg. Wants to know if we can check to see if the pharmacy has the 4.5 mg now. If not, please refill the 3 mg. He'd like a call back at [phone] to know what was sent and when it is sent. Angie Multani MA 03/16/2024 2:10 PM Signed Called back and spoke with patient. He wants the 3 mg sent [facility]. Pended. ROMAN Storm M Gregory, PA-C 03/17/2024 12:54 PM Signed The following approved medication requests have been transmitted electronically. Requested Prescriptions Signed Prescriptions Disp Refills dulaglutide (TRULICITY) 3 mg/0.5 mL pen injector 12 Each 1 Sig: Inject 3 mg subcutaneously one time a week. Authorizing Provider: Brendon ARROYO PA-C Quattrocchi, Beth, LPN 03/17/2024 1:02 PM Signed Phoned patient aware rx sent to pharmacy per PCP with understanding. Allergies As of Date: 03/16/2024 Noted Allergy Reaction ALEVE (NAPROXEN SODIUM) 02/07/2020 12 - Shortness of Breath Comments: Is able to tolerate Motrin Date Reviewed: 02/11/2024 Reviewed by: Kaela Martinez APRN.DAIRY BACTERIOLOGIST - Fully Assessed Reason for Visit: Rx issue [Other] Primary Visit Diagnosis:Uncontrolled type 2 diabetes mellitus with hyperglycemia (HCC) [E11.65] Order(s):dulaglutide (TRULICITY) 3 mg/0.5 mL pen injectorInject 3 mg subcutaneously one time a week.Disp: 12 EachRfl: 1 Prescriptions as of 03/17/2024 - dulaglutide (TRULICITY) 3 mg/0.5 mL pen injector Inject 3 mg subcutaneously one time a week. - pantoprazole DR (PROTONIX) 40 mg tablet Take 1 tablet by mouth once daily. - atorvastatin (LIPITOR) 40 mg tablet Take 1 tablet by mouth once daily. - blood sugar diagnostic (BLOOD GLUCOSE TEST) test strip Test blood sugar(s) 2 times daily. Dx: Type 2 DM - Uncontrolled E11.65 Insulin: No - ascorbic acid (VITAMIN C ORAL) Take by mouth. - ZINC ORAL Take by mouth. - Cholecalciferol, Vitamin D3, 50 mcg (2,000 unit) cap Take 1 capsule by mouth once daily. Meds Comments as of 06/24/2021: Uses [facility] [place] Problem List As Of Date 03/16/2024 Noted Resolved New onset type 2 diabetes mellitus (HCC) [E11.9]02/07/2020 10/28/2023 Uncontrolled type 2 diabetes mellitus with hype*10/28/2023 Prescriptions ordered this encounter Disp Refills Start End DULAGLUTIDE 3 MG/0.5 ML SUBCUTANEOUS* 12 E* 1 03/17/2024 09/13/2024 Route: SUBCUTANEOUS Sig: Inject 3 mg subcutaneously one time a week. Medications Discontinued During This Encounter Prescriptions - dulaglutide (TRULICITY) 3 mg/0.5 mL pen injector (Discontinued) Inject 3 mg subcutaneously one time a week. Encounter Status:Closed by EMILY BRUNSON on 03/17/24 [facility] Kishor 02-17-2024 [facility] Telephone (FAMPWS) HAMMEFRAIN Montero ([id number]) 1970 M Date Time Provider Department 02/17/24 Brendon ARROYO [facility] During your visit today, we recorded the following information about you: Latrice Hobbs 02/17/2024 3:12 PM Signed Efrain is calling Brendon Arroyo PA-C today with concern regarding Medication Problem. Efrain picked up his Trulicity and is asking why he only received 1 month's worth He states the cost for him is the same for one month or 3 months, so he would prefer 3 months. Patient has been identified by name and birthdate. Duration of symptoms: N/A Person calling: self Call patient at: at home [phone] (home) [phone] (cell) Was an appointment scheduled: No Closing statement: Brendon Kruger PA-C 02/18/2024 7:49 AM Signed The following approved medication requests have been transmitted electronically. Requested Prescriptions Signed Prescriptions Disp Refills dulaglutide (TRULICITY) 3 mg/0.5 mL pen injector 12 Each 1 Sig: Inject 3 mg subcutaneously one time a week. Authorizing Provider: Brendon ARROYO PA-C Morris, Jacqueline, LPN 02/18/2024 9:23 AM Signed Patient notified. Verbalized understanding. Allergies As of Date: 02/17/2024 Noted Allergy Reaction ALEVE (NAPROXEN SODIUM) 02/07/2020 12 - Shortness of Breath Comments: Is able to tolerate Motrin Date Reviewed: 02/11/2024 Reviewed by: Kaela Martinez APRN.DAIRY BACTERIOLOGIST - Fully Assessed Reason for Visit: Medication Problem [65] Order(s):dulaglutide (TRULICITY) 3 mg/0.5 mL pen injectorInject 3 mg subcutaneously one time a week.Disp: 12 EachRfl: 1 Prescriptions as of 02/18/2024 - dulaglutide (TRULICITY) 3 mg/0.5 mL pen injector Inject 3 mg subcutaneously one time a week. - pantoprazole DR (PROTONIX) 40 mg tablet Take 1 tablet by mouth once daily. - Fluorouracil 0.5 % cream Apply to affected area once daily for 28 days. - atorvastatin (LIPITOR) 40 mg tablet Take 1 tablet by mouth once daily. - blood sugar diagnostic (BLOOD GLUCOSE TEST) test strip Test blood sugar(s) 2 times daily. Dx: Type 2 DM - Uncontrolled E11.65 Insulin: No - ascorbic acid (VITAMIN C ORAL) Take by mouth. - ZINC ORAL Take by mouth. - Cholecalciferol, Vitamin D3, 50 mcg (2,000 unit) cap Take 1 capsule by mouth once daily. Meds Comments as of 06/24/2021: [facility] Problem List As Of Date 02/17/2024 Noted Resolved New onset type 2 diabetes mellitus (HCC) [E11.9]02/07/2020 10/28/2023 Uncontrolled type 2 diabetes mellitus with hype*10/28/2023 Prescriptions ordered this encounter Disp Refills Start End DULAGLUTIDE 3 MG/0.5 ML SUBCUTANEOUS* 12 E* 1 02/18/2024 08/16/2024 Route: SUBCUTANEOUS Sig: Inject 3 mg subcutaneously one time a week. Medications Discontinued During This Encounter Prescriptions - dulaglutide (TRULICITY) 3 mg/0.5 mL pen injector (Discontinued) Inject 3 mg subcutaneously one time a week. Encounter Status:Closed by KAELA RAMIREZ on 02/18/24 Normal [facility] ALBUMIN/CREATININE RATIO, UR YAAon 02-12-2024 Albumin DL <= 20 mg/L (U) [Mass/Vol] mg/L mg/L [facility] Albumin/Creatinine (U) [Mass ratio] mg/g NINF - 30 mg/g [facility] Comment on above: Adult Male and Femal e Nephrotic Criteria: <30 mg/g is considered normal to mildly increased 30-300 mg/g is considered moderately increased >300 mg/g is considered severely increased KDIGO. (2013). KDIGO 2012 Clinical Practice Guideline for the Evaluation and Management of Chronic Kidney Disease. Official Journal of the International Society of Nephrology, 3(1), 1-150. Creatinine (U) [Mass/Vol] 224.3 mg/dL 20.0 - 300.0 mg/dL [facility] CBC W Auto Differential pane l (Bld)on 02-12-2024 Basophils (Bld) [#/Vol] 0.04 10*3/uL [facility] Basophils/100 WBC (Bld) 0.5 % [facility] Differential cell count method Nom (Bld) Auto [facility] Eosinophils (Bld) [#/Vol] 0.13 10*3/uL [facility] Eosinophils/100 WBC (Bld) 1.5 % [facility] Erythrocyte distribution width (RBC) [Ratio] 12.3 % 11.5 - 15.0 % [facility] Hematocrit (Bld) [Volume fraction] 44.5 % 39.0 - 51.0 % [facility] Hemoglobin (Bld) [Mass/Vol] 15.1 g/dL 13.0 - 17.0 g/dL [facility] Immature granulocytes (Bld) [#/Vol] 0.03 10*3/uL [facility] Immature granulocytes/100 WBC (Bld) 0.3 % [facility] Lymphocytes (Bld) [#/Vol] 3.10 10*3/uL [facility] Lymphocytes/100 WBC (Bld) 35.0 % [facility] MCH (RBC) [Entitic mass] 28.8 pg 26.0 - 34.0 pg [facility] MCHC (RBC) [Mass/Vol] 33.9 g/dL 30.5 - 36.0 g/dL [facility] MCV (RBC) [Entitic vol] 84.8 fL 80.0 - 100.0 fL [facility] Monocytes (Bld) [#/Vol] 0.49 10*3/uL [facility] Monocytes/100 WBC (Bld) 5.5 % [facility] Neutrophils (Bld) [#/Vol] 5.07 10*3/uL [facility] Neutrophils/100 WBC (Bld) 57.2 % [facility] Nucleated RBC (Bld) [#/Vol] NINF [facility] Nucleated RBC/100 WBC (Bld) [Ratio] 0.0 % /100 WBC [facility] Platelet mean volume (Bld) [Entitic vol] 11.5 fL 9.0 - 12.7 fL [facility] Platelets (Bld) [#/Vol] 215 10*3/uL [facility] RBC (Bld) [#/Vol] 5.25 10*6/uL 4.20 - 6.0 0 m/uL [facility] WBC (Bld) [#/Vol] 8.86 10*3/uL [facility] EFRAIN HAMM ([id number]) 1970 M Date Time Provider Department 02/12/24 KAELA MARTINEZ [facility] During your visit today, we recorded the following information about you: Kaela Martinez, DRAGLINE OPERATOR HELPER.DAIRY BACTERIOLOGIST 02/12/2024 9:05 AM Signed Please let patient know that his hemoglobin A1c was 8.1%. That means his diabetes is not controlled. We discussed at length dietary changes. If he would like to follow-up in 3 months to check on this, we can. His LDL cholesterol is 168. This places him at significant cardiovascular risk for stroke and heart attack. The dietary changes or to address LDL also and he is on a statin. Thyroid normal, magnesium normal, kidney function and blood counts are normal, no effect of diabetes on his kidneys. June Banerjee, ELICEO 02/12/2024 1:31 PM Signed Called and left a voicemail for the Patient to call back and ask for a nurse to receive the providers message. ELICEO Rocha Stephanie, RN 02/12/2024 3:38 PM Signed Patient notified of results and provider's instructions. Patient verbalizes understanding. Patient states that he would like to follow up on labs in [address] labs so that he can have these done I 3 months. Aziza Camacho RN Allergies As of Date: 02/12/2024 Noted Allergy Reaction ALEVE (NAPROXEN SODIUM) 02/07/2020 12 - Shortness of Breath Comments: Is able to tolerate Motrin Date Reviewed: 02/11/2024 Reviewed by: Kaela Martinez APRN.DAIRY BACTERIOLOGIST - Fully Assessed Reason for Visit: Results [95] Prescriptions as of 02/12/2024 - dulaglutide (TRULICITY) 4.5 mg/0.5 mL pen injector Inject 4.5 mg subcutaneously one time a week. - pantoprazole DR (PROTONIX) 40 mg tablet Take 1 tablet by mouth once daily. - Fluorouracil 0.5 % cream Apply to affected area once daily for 28 days. - atorvastatin (LIPITOR) 40 mg tablet Take 1 tablet by mouth once daily. - blood sugar diagnostic (BLOOD GLUCOSE TEST) test strip Test blood sugar(s) 2 times daily. Dx: Type 2 DM - Uncontrolled E11.65 Insulin: No - ascorbic acid (VITAMIN C ORAL) Take by mouth. - ZINC ORAL Take by mouth. - Cholecalciferol, Vitamin D3, 50 mcg (2,000 unit) cap Take 1 capsule by mouth once daily. Meds Comments as of 06/24/2021: [facility]ses [facility] Problem List As Of Date 02/12/2024 Noted Resolved New onset type 2 diabetes mellitus (HCC) [E11.9]02/07/2020 10/28/2023 Uncontrolled type 2 diabetes mellitus with hype*10/28/2023 Encounter Status:Closed by KAELA MARTINZE on 02/12/24 Normal [facility] Telephone (FAMPWS) EFRAIN HAMM ([id number]) 1970 M Date Time Provider Department 02/12/24 Brendon ARROYO During your visit today, we recorded the following information about you: Olivia Tyler RN 02/12/2024 4:15 PM Signed Patient calls to let provider know that he is not able to get the Trulicity 4.5 mg from [facility] and is completely out. Next dose would be due tomorrow morning 02/13/2024. Patient is leaving for [place] in the morning and returning Thursday02/15/2024. Patient asking what provider recommends since medication is on backorder. Asking if there is something else he could be switched to. Please review and advise, ELICEO Franco William J, MD 02/13/2024 8:02 AM Signed Lets try and see if we can get lower dose. Estrella Vidal MA 02/13/2024 8:48 AM Signed Patient notified of provider message and dosage change. Estrella Vidal MA February 13, 2024 8:48 AM Allergies As of Date: 02/12/2024 Noted Allergy Reaction ALEVE (NAPROXEN SODIUM) 02/07/2020 12 - Shortness of Breath Comments: Is able to tolerate Motrin Date Reviewed: 02/11/2024 Reviewed by: Kaela Martinez APRN.DAIRY BACTERIOLOGIST - Fully Assessed Reason for Visit: Medication Problem [65] Order(s):dulaglutide (TRULICITY) 3 mg/0.5 mL pen injectorInject 3 mg subcutaneously one time a week.Disp: 2 mLRfl: 0 Prescriptions as of 02/13/2024 - dulaglutide (TRULICITY) 3 mg/0.5 mL pen injector Inject 3 mg subcutaneously one time a week. - pantoprazole DR (PROTONIX) 40 mg tablet Take 1 tablet by mouth once daily. - Fluorouracil 0.5 % cream Apply to affected area once daily for 28 days. - atorvastatin (LIPITOR) 40 mg tablet Take 1 tablet by mouth once daily. - blood sugar diagnostic (BLOOD GLUCOSE TEST) test strip Test blood sugar(s) 2 times daily. Dx: Type 2 DM - Uncontrolled E11.65 Insulin: No - ascorbic acid (VITAMIN C ORAL) Take by mouth. - ZINC ORAL Take by mouth. - Cholecalciferol, Vitamin D3, 50 mcg (2,000 unit) cap Take 1 capsule by mouth once daily. Meds Comments as of 06/24/2021: [facility] Problem List As Of Date 02/12/2024 Noted Resolved New onset type 2 diabetes mellitus (HCC) [E11.9]02/07/2020 10/28/2023 Uncontrolled type 2 diabetes mellitus with hype*10/28/2023 Prescriptions ordered this encounter Disp Refills Start End DULAGLUTIDE 3 MG/0.5 ML SUBCUTANEOUS* 2 mL 0 02/13/2024 03/14/2024 Route: SUBCUTANEOUS Sig: Inject 3 mg subcutaneously one time a week. Medications Discontinued During This Encounter Prescriptions - dulaglutide (TRULICITY) 4.5 mg/0.5 mL pen injector (Discontinued) Inject 4.5 mg subcutaneously one time a week. Encounter Status:Closed by ESTRELLA VIDAL on 02/13/24 Normal [facility] Comprehensive metabolic 2000 panelon 02-12-2024 Albumin [Mass/Vol] 4.2 g/dL 3.9 - 4.9 g/dL [facility] ALP [Catalytic activity/Vol] 74 U/L 38 - 113 U/L [facility] ALT [Catalytic activity/Vol] 12 U/L 10 - 54 U/L [facility] Anion gap [Moles/Vol] 10 mmol/L 9 - 18 mmol/L [facility] AST [Catalytic activity/Vol] 16 U/L 14 - 40 U/L [facility] Bilirubin [Mass/Vol] 0.3 mg/dL 0.2 - 1 .3 mg/dL [facility] Calcium [Mass/Vol] 9.1 mg/dL 8.5 - 10. 2 mg/dL [facility] Chloride [Moles/Vol] 102 mmol/L 97 - 10 5 mmol/L [facility] CO2 [Moles/Vol] 24 mmol/L 22 - 30 mmol/L [facility] Creatinine [Mass/Vol] 0.82 mg/dL 0.73 - 1.22 mg/dL [facility] GFR/1.73 sq M.predicted among non-blacks MDRD (S/P/Bld) [Vol rate/Area] 104 mL/min/{1.73_m2} - PINF [facility] Comment on above: Estimated Glomerular Filtration Rate (eGFR) is calculated using the 2020 CKD-EPI creatinine equation. This equation utilizes serum creatinine, sex, and age as parameters. The creatinine assay has traceable calibration to isotope dilution-mass spectrometry. Refer to KDIGO guidelines for clinical interpretation. In patients with unstable renal function, e.g. those with acute kidney injury, the eGFR may not accurately reflect actual GFR. Glucose [Mass/Vol] 128 mg/dL High 74 - 99 mg/dL [facility] Comment on above: The [place] Diabete s Association (ADA) provides guidance for cutoff values for fasting glucose and random glucose. The ADA defines fasting as no caloric intake for at least 8 hours. Fasting plasma glucose results between 100 to 125 mg/dL indicate increased risk for diabetes (prediabetes). Fasting plasma glucose results greater than or equal to 126 mg/dL meet the criteria for diagnosis of diabetes. In the absence of unequivocal hyperglycemia, results should be confirmed by repeat testing. In a patient with classic symptoms of hyperglycemia or hyperglycemic crisis, random plasma glucose results greater than or equal to 200 mg/dL meet the criteria for diagnosis of diabetes. Reference: Standards of Medical Care in Diabetes 2016, [place] Diabetes Association. Diabetes Care. 2016.39(Suppl 1). Potassium [Moles/Vol] 4.4 mmol/L 3.7 - 5.1 mmol/L [facility] Protein [Mass/Vol] 6.9 g/dL 6.3 - 8.0 g/dL [facility] Sodium [Moles/Vol] 136 mmol/L 136 - 144 mmol/L [facility] Urea nitrogen [Mass/Vol] 14 mg/dL 9 - 24 mg/dL [facility] LIPID PANEL, NONFASTINGon Cholesterol [Mass/Vol] 248 mg/dL High NINF - 200 mg/dL [facility] Comment on above: <200 mg/dL, Desirabl e 200-239 mg/dL, Borderline high >239 mg/dL, High HDL Cholesterol, Nonfasting 38 mg/dL Low 39 - PINF mg/dL [facility] Comment on above: 40-59 mg/dL, Accepta ble >59 mg/dL, High: Negative risk factor for coronary heart disease <40 mg/dL, Low: Positive risk factor for coronary heart disease LDL Cholesterol, Nonfasting 168 mg/dL High NINF - 100 mg/dL [facility] Comment on above: <100 mg/dL, Optimal 100-129 mg/dL, Near optimal/above optimal 130-159 mg/dL, Borderline high 160-189 mg/dL, High >189 mg/dL, Very high Secondary prevention optimal LDL Cholesterol levels are recommended to be < 70 mg/dL LDL/HDL Ratio, Nonfasting 4.42 mg/dL High NINF - 2.54 mg/dL [facility] Comment on above: Reference: 1. National Cholesterol Education Program ATP III Guideline At-A-Glance Quick Desk Reference: National Heart, Lung, and Blood [place]. National Institutes of Health. 2001: NIH Publication No. 01-3305. 2. An International Atherosclerosis Society position paper: global recommendations for the management of dyslipidemia: executive summary, Atherosclerosis. 2014: 232(2):410-413. Non HDL Cholesterol, Nonfasting 210 mg/dL High NINF - 130 mg/dL [facility] Comment on above: <130 mg/dL, Optimal 130-159 mg/dL, Near optimal/above optimal 160-189 mg/dL, Borderline high 190-219 mg/dL, High >219 mg/dL, Very high Secondary prevention optimal non HDL Cholesterol levels are recommended to be <100 mg/dL Total Chol/HDL Ratio, Nonfasting 6.53 mg/dL High NINF - 5.10 mg/dL [facility] Triglycerides, Nonfasting 210 mg/dL High NINF - 150 mg/dL [facility] Comment on above: <150 mg/dL, Normal 150-199 mg/dL, Borderline high 200-499 mg/dL, High >499 mg/dL, Very high VLDL Cholesterol, Nonfasting 42 mg/dL High NINF - 30 mg/dL [facility] MAGNESIUMon 02-12-2024 Magnesium [Mass/Vol] 2.3 mg/dL 1.7 - 2 .3 mg/dL [facility] Magnesium [Mass/Vol]on 02-11 Interpretation and review of laboratory results Normal [facility] No Panel Informationon 02-11 Interpretation and review of laboratory results Abnormal [facility] THYROID STIMULATING HORMONEo n 02-12-2024 TSH Qn 1.870 m[IU]/L [facility] TSH Qnon 02-12-2024 Interpretation and review of laboratory results Normal [facility] ALBUMIN/CREATININE RATIO, UR INEon 02-11-2024 Albumin DL <= 20 mg/L (U) [Mass/Vol] mg/dL Normal [facility] Comment on above: Order Comment: Speci men Type: URINE SPECIMENOrdering Facility: [facility] Address: [address] [place] [address] Performed By: #### U ACR ####[facility] LABCLIA [id number] [place] [address] [place] Albumin/Creatinine (U) [Mass ratio] <5 Normal <30 [facility] Comment on above: Order Comment: Speci men Type: URINE SPECIMENOrdering Facility: [facility] Address: [address] [place] [address] Result Comment: Adul t Male and Female Nephrotic Criteria: <30 mg/g is considered normal to mildly increased 30-300 mg/g is considered moderately increased >300 mg/g is considered severely increased KDIGO. (2013). KDIGO 2012 Clinical Practice Guideline for the Evaluation and Management of Chronic Kidney Disease. Official Journal of the International Society of Nephrology, 3(1), 1-150. Performed By: #### U ACR ####[facility] LABIA [id number] [place] [address] [place] Creatinine (U) [Mass/Vol] 224.3 mg/dL Normal 20.0-300.0 [facility] Comment on above: Order Comment: Speci men Type: URINE SPECIMENOrdering Facility: [facility] Address: [address] [place] [address] Performed By: #### U ACR ####[facility] LABCLIA [id number] [place] [id number] [place] CBC W Auto Differential pane l (Bld)on 02-11-2024 Basophils (Bld) [#/Vol] 0.04 10*3/uL Normal <0.11 [facility] Comment on above: Order Comment: Speci men Type: BLOOD SPECIMENOrdering Facility: [facility] Address: [address] [place] [address] Performed By: #### 5 7021-8 ####[facility] LABCLIA [id number] [place] [address] [place] Basophils/100 WBC (Bld) 0.5 % Normal [facility] Comment on above: Order Comment: Speci men Type: BLOOD SPECIMENOrdering Facility: [facility] Address: [address] [place] [address] Performed By: #### 5 7021-8 ####[facility] LABCLIA [id number] [place] [address] [place] Differential cell count method Nom (Bld) Auto Normal [facility] Comment on above: Order Comment: Speci men Type: BLOOD SPECIMENOrdering Facility: [facility] Address: [address] [place] [address] Performed By: #### 5 7021-8 ####[facility] LABCLIA [id number] [place] [address] [place] Eosinophils (Bld) [#/Vol] 0.13 10*3/uL Normal <0.46 [facility] Comment on above: Order Comment: Speci men Type: BLOOD SPECIMENOrdering Facility: [facility] Address: [address] [place] [address] Performed By: #### 5 7021-8 ####[facility] LABCLIA [id number] [place] [address] [place] Eosinophils/100 WBC (Bld) 1.5 % Normal [facility] Comment on above: Order Comment: Speci men Type: BLOOD SPECIMENOrdering Facility: [facility] Address: [address] [place] [address] Performed By: #### 5 7021-8 ####[facility] LABCLIA [id number] [place] [address] [place] Erythrocyte distribution width (RBC) [Ratio] 12.3 % Normal 11.5-15.0 [facility] Comment on above: Order Comment: Speci men Type: BLOOD SPECIMENOrdering Facility: [facility] Address: [address] [place] [address] Performed By: #### 5 7021-8 ####[facility] LABCLIA [id number] [place] [address] [place] Hematocrit (Bld) [Volume fraction] 44.5 % Normal 39.0-51.0 [facility] Comment on above: Order Comment: Speci men Type: BLOOD SPECIMENOrdering Facility: [facility] Address: [address] [place] [address] Performed By: #### 5 7021-8 ####[facility] LABCLIA [id number] [place] [address] [place] Hemoglobin (Bld) [Mass/Vol] 15.1 g/dL Normal 13.0-17.0 [facility] Comment on above: Order Comment: Speci men Type: BLOOD SPECIMENOrdering Facility: [facility] Address: [address] [place] [address] Performed By: #### 5 7021-8 ####[facility] LABCLIA [id number] [place] [address] [place] Immature granulocytes (Bld) [#/Vol] 0.03 10*3/uL Normal <0.10 [facility] Comment on above: Order Comment: Speci men Type: BLOOD SPECIMENOrdering Facility: [facility] Address: [address] [place] [address] Performed By: #### 5 7021-8 ####[facility] LABCLIA [id number] [place] [address] [place] Immature granulocytes/100 WBC (Bld) 0.3 % Normal [facility] Comment on above: Order Comment: Speci men Type: BLOOD SPECIMENOrdering Facility: [facility] Address: [address] [place] [address] Performed By: #### 5 7021-8 ####[facility] LABCLIA [id number] [place] [address] [place] Lymphocytes (Bld) [#/Vol] 3.10 10*3/uL Normal 1.00-4.00 [facility] Comment on above: Order Comment: Speci men Type: BLOOD SPECIMENOrdering Facility: [facility] Address: [address] [place] [address] Performed By: #### 5 7021-8 ####[facility] LABCLIA [id number] [place] [address] [place] Lymphocytes/100 WBC (Bld) 35.0 % Normal [facility] Comment on above: Order Comment: Speci men Type: BLOOD SPECIMENOrdering Facility: [facility] Address: [address] [place] [address] Performed By: #### 5 7021-8 ####[facility] LABCLIA [id number] [place] [address] [place] MCH (RBC) [Entitic mass] 28.8 pg Normal 26.0-34.0 [facility] Comment on above: Order Comment: Speci men Type: BLOOD SPECIMENOrdering Facility: [facility] Address: [address] [place] [address] Performed By: #### 5 7021-8 ####[facility] LABCLIA [id number] [place] [address] [place] MCHC (RBC) [Mass/Vol] 33.9 g/dL Normal 30.5-36.0 [facility] Comment on above: Order Comment: Speci men Type: BLOOD SPECIMENOrdering Facility: [facility] Address: [address] [place] [address] Performed By: #### 5 7021-8 ####[facility] LABCLIA [id number] [place] [address] [place] MCV (RBC) [Entitic vol] 84.8 fL Normal 80.0-100.0 [facility] Comment on above: Order Comment: Speci men Type: BLOOD SPECIMENOrdering Facility: [facility] Address: [address] [place] [address] Performed By: #### 5 7021-8 ####[facility] LABCLIA [id number] [place] [address] [place] Monocytes (Bld) [#/Vol] 0.49 10*3/uL Normal <0.87 [facility] Comment on above: Order Comment: Speci men Type: BLOOD SPECIMENOrdering Facility: [facility] Address: [address] [place] [address] Performed By: #### 5 7021-8 ####[facility] LABCLIA [id number] [place] [address] [place] Monocytes/100 WBC (Bld) 5.5 % Normal [facility] Comment on above: Order Comment: Speci men Type: BLOOD SPECIMENOrdering Facility: [facility] Address: [address] [place] [address] Performed By: #### 5 7021-8 ####[facility] LABCLIA [id number] [place] [address] [place] Neutrophils (Bld) [#/Vol] 5.07 10*3/uL Normal 1.45-7.50 [facility] Comment on above: Order Comment: Speci men Type: BLOOD SPECIMENOrdering Facility: [facility] Address: [address] [place] [address] Performed By: #### 5 7021-8 ####[facility] LABCLIA [id number] [place] [address] [place] Neutrophils/100 WBC (Bld) 57.2 % Normal [facility] Comment on above: Order Comment: Speci men Type: BLOOD SPECIMENOrdering Facility: [facility] Address: [address] [place] [address] Performed By: #### 5 7021-8 ####[facility] LABCLIA [id number] [place] [address] [place] Nucleated RBC (Bld) [#/Vol] 10*3/uL Normal <0.01 [facility] Comment on above: Order Comment: Speci men Type: BLOOD SPECIMENOrdering Facility: [facility] Address: [address] [place] [address] Performed By: #### 5 7021-8 ####[facility] LABCLIA [id number] [place] [address] [place] Nucleated RBC/100 WBC (Bld) [Ratio] 0.0 /100 WBC Normal [facility] Comment on above: Order Comment: Speci men Type: BLOOD SPECIMENOrdering Facility: [facility] Address: [address] [place] [address] Performed By: #### 5 7021-8 ####[facility] LABIA [id number] [place] [address] [place] Platelet mean volume (Bld) [Entitic vol] 11.5 fL Normal 9.0-12.7 [facility] Comment on above: Order Comment: Speci men Type: BLOOD SPECIMENOrdering Facility: [facility] Address: [address] [place] [address] Performed By: #### 5 7021-8 ####[facility] LABIA [id number] [place] [address] [place] Platelets (Bld) [#/Vol] 215 10*3/uL Normal 150-400 [facility] Comment on above: Order Comment: Speci men Type: BLOOD SPECIMENOrdering Facility: [facility] Address: [address] [place] [address] Performed By: #### 5 7021-8 ####[facility] LABCLIA [id number] [place] [address] [place] RBC (Bld) [#/Vol] 5.25 10*6/uL Normal 4.20-6.00 [facility] Comment on above: Order Comment: Speci men Type: BLOOD SPECIMENOrdering Facility: [facility] Address: [address] [place] [address] Performed By: #### 5 7021-8 ####[facility] LABCLIA [id number] [place] [address] [place] WBC (Bld) [#/Vol] 8.86 10*3/uL Normal 3.70-11.00 [facility] Comment on above: Order Comment: Speci men Type: BLOOD SPECIMENOrdering Facility: [facility] Address: [address] [place] [address] Performed By: #### 5 7021-8 ####[facility] LABCLIA [id number] [address] [place] CNOVon 02-11-2024 CNOV Office Visit (FAMPWS ) EFRAIN HAMM ([id number]) 1970 M Date Time Provider Department 02/11/24 4:00 PM [facility] today, we recorded the following information about you: Pulse Blood pressure Weight 87/minute 142/82 93.9 kg Kaela Martinez, DRAGLINE OPERATOR HELPER.DAIRY BACTERIOLOGIST 02/11/2024 4:40 PM Signed This is a 53 year old male who presents today with: Patient presents with: Follow Up HISTORY OF PRESENT ILLNESS: Efrain Hamm is a 53 year old male. Patient presents with: Follow Up Acne continues to persist on nose even with using the wipes. Hasn't healed in 2 months. Sore- feels like a sunburn. Getting heart burn really bad. Pepcid not helping. Wants to get off DM meds. Dietary changes. PAST MEDICAL HISTORY: PAST MEDICAL HISTORY Diagnosis Date CAP (community acquired pneumonia) 02/06/2022 bibasilar opacities R>L suggesting infiltrate or atelectasis. Treated with Levaquin 500mg x 10 d with resolution Obese body habitus No past surgical history on file. ALLERGIES Aleve [Naproxen Sodium] MEDICATIONS Current Outpatient Medications Medication Sig dulaglutide (TRULICITY) 4.5 mg/0.5 mL pen injector Inject 4.5 mg subcutaneously one time a week. atorvastatin (LIPITOR) 40 mg tablet Take 1 tablet by mouth daily at bedtime. For cholesterol. blood sugar diagnostic (BLOOD GLUCOSE TEST) test strip Test blood sugar(s) 2 times daily. Dx: Type 2 DM - Uncontrolled E11.65 Insulin: No ascorbic acid (VITAMIN C ORAL) Take by mouth. ZINC ORAL Take by mouth. Cholecalciferol, Vitamin D3, 50 mcg (2,000 unit) cap Take 1 capsule by mouth once daily. No current facility-administered medications for this visit. FAMILY HISTORY Problem Relation Age of Onset Diabetes Father Social History Tobacco Use Smoking status: Every Day Packs/day: 1.00 Years: 30.00 Additional pack years: 0.00 Total pack years: 30.00 Types: Cigarettes Smokeless tobacco: Never Tobacco comments: 1-2 ppd. Wants to quit Vaping Use Vaping Use: Never used Substance Use Topics Alcohol use: Not Currently Drug use: Never REVIEW OF SYSTEMS Review of Systems Constitutional: Positive for fatigue. Negative for activity change, appetite change, chills and fever. HENT: Negative for hearing loss, postnasal drip and sore throat. Respiratory: Positive for cough and shortness of breath. Negative for chest tightness and wheezing. Cardiovascular: Negative for chest pain, palpitations and leg swelling. Gastrointestinal: Negative for abdominal pain, constipation, diarrhea, nausea and vomiting. Endocrine: Negative for polydipsia and polyphagia. Genitourinary: Negative for dysuria and hematuria. Musculoskeletal: Negative for arthralgias, gait problem and joint swelling. Skin: Negative for color change, pallor, rash and wound. Bridge of nose with a non-healing chow erosion that is 3 mm in size (not changing) without bleeding Neurological: Negative for dizziness, tremors and syncope. Psychiatric/Behavioral : Denies hopelessness or helplessness Smoked 1/4 ppd for 10 years. < Than 1 ppd for 10 years, 1 ppd. For 10 years. EXAM: BP 142/82 Pulse 87 Wt 93.9 kg (207 lb) SpO2 97% BMI 30.79 kg/m? PHYSICAL EXAM: Physical Exam Vitals reviewed. Constitutional: Appearance: Normal appearance. HENT: Head: Normocephalic. Right Ear: There is no impacted cerumen. Left Ear: There is impacted cerumen. Nose: Comments: Erosions left ear Mouth/Throat: Mouth: Mucous membranes are dry. Cardiovascular: Rate and Rhythm: Normal rate and regular rhythm. Pulmonary: Effort: Pulmonary effort is normal. Breath sounds: Normal breath sounds. Comments: Cleared after cough Diminished throughout Abdominal: General: Bowel sounds are absent. Palpations: Abdomen is soft. Musculoskeletal: Cervical back: Neck supple. Comments: Full ROM AND strength in all ext., Skin: General: Skin is warm and dry. Neurological: Mental Status: He is alert. LABS: Labs today ASSESSMENT/PLAN: 1. Hyperlipidemia, mixed - ICD9: 272.2, ICD10: E78.2 - Control undetermined, due for labs - Continue current medications - Counseled on healthy diet and regular exercise - ATORVASTATIN 40 MG TABLET 2. Tobacco use disorder - ICD9: 305.1, ICD10: F17.200 (primary diagnosis) - Cessation encouraged. - Physiologic and physical aspects of tobacco addiction as well as strategies for quitting were discussed. - Counseling was given focusing on the harmful effects of this addiction especially given the patient's medical condition(s) which will be worsened because of the chemicals in tobacco. - COMPLETE BLOOD COUNT AND DIFFERENTIAL 3. Uncontrolled type 2 diabetes mellitus with hyperglycemia (HCC) - ICD9: 250.02, ICD10: E11.65 Get labs - Continue current medications - COMPREHENSIVE METABOLIC PANEL - MAGNESIUM - THYROID ST (more content not included)... Normal [facility] Comprehensive metabolic 2000 panelon 02-11-2024 Albumin [Mass/Vol] 4.2 g/dL Normal 3.9-4.9 [facility] Comment on above: Order Comment: Speci men Type: BLOOD SPECIMENOrdering Facility: [facility] Address: [address] [place] [address] Performed By: #### [place], 15036-4, 97803-07, ####[facility] LABCLIA [id number] [address] [address] [place] ALP [Catalytic activity/Vol] 74 U/L Normal 38-113 [facility] Comment on above: Order Comment: Speci men Type: BLOOD SPECIMENOrdering Facility: [facility] Address: [address] [place] [address] Performed By: #### L IPNF, , 3015-12, ####[facility] LABCLIA [id number] [place] [id number] [place] ALT [Catalytic activity/Vol] 12 U/L Normal 10-54 [facility] Comment on above: Order Comment: Speci men Type: BLOOD SPECIMENOrdering Facility: [facility] Address: [address] [place] [address] Performed By: #### L IPNF, , 3015-12, ####[facility] LABCLIA [id number] [place] [id number] [place] Anion gap [Moles/Vol] 10 mmol/L Normal 9-18 [facility] Comment on above: Order Comment: Speci men Type: BLOOD SPECIMENOrdering Facility: [facility] Address: [address] [place] [address] Performed By: #### L IPNF, , 3015-12, ####[facility] LABCLIA [id number] [address] [address] [place] AST [Catalytic activity/Vol] 16 U/L Normal 14-40 [facility] Comment on above: Order Comment: Speci men Type: BLOOD SPECIMENOrdering Facility: [facility] Address: [address] [place], [place] [address] Performed By: #### L IPNF, , 3015-12, 69982-3 ####[facility] LABCLIA [id number] [address] [address] [place] Bilirubin [Mass/Vol] 0.3 mg/dL Normal 0.2-1.3 [facility] Comment on above: Order Comment: Speci men Type: BLOOD SPECIMENOrdering Facility: [facility] Address: [address] [place] [address] Performed By: #### L IPNF, , 3, 67821-2 ####[facility] LABCLIA [id number] [address] [address] [place] Calcium [Mass/Vol] 9.1 mg/dL Normal 8.5-10.2 [facility] Comment on above: Order Comment: Speci men Type: BLOOD SPECIMENOrdering Facility: [facility] Address: [address] [place] [address] Performed By: #### L IPNF, , 3015-12, 25078-2 ####[facility] LABCLIA [id number] [place] [address] [place] Chloride [Moles/Vol] 102 mmol/L Normal 97-105 [facility] Comment on above: Order Comment: Speci men Type: BLOOD SPECIMENOrdering Facility: [facility] Address: [address] [place] [address] Performed By: #### L IPNF, , 3015-12, 49617-1 ####[facility] LABCLIA [id number] [address] [address] [place] CO2 [Moles/Vol] 24 mmol/L Normal 22-30 [facility] Comment on above: Order Comment: Speci men Type: BLOOD SPECIMENOrdering Facility: [facility] Address: [address] [place] [address] Performed By: #### L IPNF, , 3, 62395-3 ####[facility] LABCLIA [id number] [place] [id number] [place] Creatinine [Mass/Vol] 0.82 mg/dL Normal 0.73-1.22 [facility] Comment on above: Order Comment: Justin llamas Type: BLOOD SPECIMENOrdering Facility: [facility] Address: [address] [place] [address] Performed By: #### L IPNF, 02848-8, 3015-3, 21804-1 ####[facility] LABCLIA [id number] [place] [address] [place] Creatinine and Glomerular filtration rate.predicted panel (S/P/Bld) 104 mL/min/1.73m??? Normal >=60 [facility] Comment on above: Order Comment: Justin llamas Type: BLOOD SPECIMENOrdering Facility: [facility] Address: [address] [place] [address] Result Comment: Mariam mated Glomerular Filtration Rate (eGFR) is calculated using the 2020 CKD-EPI creatinine equation. This equation utilizes serum creatinine, sex, and age as parameters. The creatinine assay has traceable calibration to isotope dilution-mass spectrometry. Refer to KDIGO guidelines for clinical interpretation. In patients with unstable renal function, e.g. those with acute kidney injury, the eGFR may not accurately reflect actual GFR. Performed By: #### L IPNF, , 3, ####[facility] LABCLIA [id number] [place] [id number] [place] Glucose [Mass/Vol] 128 mg/dL High 74-99 [facility] Comment on above: Order Comment: Justin llamas Type: BLOOD SPECIMENOrdering Facility: [facility] Address: [address] [place] [address] Result Comment: The [place] Diabetes Association (ADA) provides guidance for cutoff values for fasting glucose and random glucose. The ADA defines fasting as no caloric intake for at least 8 hours. Fasting plasma glucose results between 100 to 125 mg/dL indicate increased risk for diabetes (prediabetes). Fasting plasma glucose results greater than or equal to 126 mg/dL meet the criteria for diagnosis of diabetes. In the absence of unequivocal hyperglycemia, results should be confirmed by repeat testing. In a patient with classic symptoms of hyperglycemia or hyperglycemic crisis, random plasma glucose results greater than or equal to 200 mg/dL meet the criteria for diagnosis of diabetes. Reference: Standards of Medical Care in Diabetes 2016, [place] Diabetes Association. Diabetes Care. 2016.39(Suppl 1). Performed By: #### L IPNF, , 3015-3, 76925-2 ####[facility] LABCLIA [id number] [address] [address] [place] Potassium [Moles/Vol] 4.4 mmol/L Normal 3.7-5.1 [facility] Comment on above: Order Comment: Justin llamas Type: BLOOD SPECIMENOrdering Facility: [facility] Address: [address] [place] [address] Performed By: #### L IPNF, , 3015-12, ####[facility] LABCLIA [id number] [place] [address] [place] Protein [Mass/Vol] 6.9 g/dL Normal 6.3-8.0 [facility] Comment on above: Order Comment: Justin llamas Type: BLOOD SPECIMENOrdering Facility: [facility] Address: [address] [place] [address] Performed By: #### L IPNF, , 3015-12, ####[facility] LABCLIA [id number] [place] [address] [place] Sodium [Moles/Vol] 136 mmol/L Normal 136-144 [facility] Comment on above: Order Comment: Justin llamas Type: BLOOD SPECIMENOrdering Facility: [facility] Address: [address] [place] [address] Performed By: #### L IPNF, , 3015-3, 82157-2 ####[facility] LABCLIA [id number] [address] [address] [place] Urea nitrogen [Mass/Vol] 14 mg/dL Normal 9-24 [facility] Comment on above: Order Comment: Justin llamas Type: BLOOD SPECIMENOrdering Facility: [facility] Address: [address] [place] [address] Performed By: #### L IPNF, 82698-7, 3016-3, 91263-2 ####[facility] LABCLIA [id number] [place] [address] [place] HbA1c (Bld)on 02-11-2024 Average glucose Estimated from glycated hemoglobin (Bld) [Mass/Vol] 186 mg/dL Normal [facility] Comment on above: Order Comment: Justin llamas Type: BLOOD SPECIMENOrdering Facility: [facility] Address: [address] [place] [address] Result Comment: eAG: (Estimated average glucose) is a calculated value from HgbA1c and is customer contact representative of the average blood glucose level in the last 2-3 month period. Performed By: #### 5 5454-3 ####[facility] LABCLIA [id number] [place] [address] [place] HbA1c (Bld) [Mass fraction] 8.1 % High 4.3-5.6 [facility] Comment on above: Order Comment: Justin llamas Type: BLOOD SPECIMENOrdering Facility: [facility] Address: [address] [place] [address] Result Comment: [place] Diabetes Association guidelines indicate that patients with HgbA1c in the range 5.7-6.4% are at increased risk for development of diabetes, and intervention by lifestyle modification may be beneficial. HgbA1c greater or equal to 6.5% is considered diagnostic of diabetes. Performed By: #### 5 5454-3 ####[facility] LABCLIA [id number] [place] [id number] [place] LIPID PANEL, NONFASTINGon Cholesterol [Mass/Vol] 248 mg/dL High <200 [facility] Comment on above: Order Comment: Speci men Type: BLOOD SPECIMENOrdering Facility: [facility] Address: [address] [place] [address] Result Comment: <200 mg/dL, Desirable 200-239 mg/dL, Borderline high >239 mg/dL, High Performed By: #### L IPNF, , 3016-3, 72964-0 ####[facility] LABCLIA [id number] [place] [address] [place] HDL CHOLESTEROL, NF 38 mg/dL Low >39 [facility] Comment on above: Order Comment: Speci men Type: BLOOD SPECIMENOrdering Facility: [facility] Address: [address] [place] [address] Result Comment: 40-5 9 mg/dL, Acceptable >59 mg/dL, High: Negative risk factor for coronary heart disease <40 mg/dL, Low: Positive risk factor for coronary heart disease Performed By: #### L IPNF, , 3, 61743-4 ####[facility] LABCLIA [id number] [place] [address] [place] LDL CHOLESTEROL, NF 168 mg/dL High <100 [facility] Comment on above: Order Comment: Speci men Type: BLOOD SPECIMENOrdering Facility: [facility] Address: [address] [place] [address] Result Comment: <100 mg/dL, Optimal 100-129 mg/dL, Near optimal/above optimal 130-159 mg/dL, Borderline high 160-189 mg/dL, High >189 mg/dL, Very high Secondary prevention optimal LDL Cholesterol levels are recommended to be < 70 mg/dL Performed By: #### L IPNF, , 3015-3, 74280-3 ####[facility] LABCLIA [id number] [place] [address] [place] LDL/HDL RATIO, NF 4.42 mg/dL High <2.54 [facility] Comment on above: Order Comment: Speci men Type: BLOOD SPECIMENOrdering Facility: [facility] Address: [address] [place] [address] Result Comment: Shanae fischer: 1. National Cholesterol Education Program ATP III Guideline At-A-Glance Quick Desk Reference: National Heart, Lung, and Blood [place]. National Institutes of Health. 2001: NIH Publication No. 01-3305. 2. An International Atherosclerosis Society position paper: global recommendations for the management of dyslipidemia: executive summary, Atherosclerosis. 2014: 232(2):410-413. Performed By: #### L IPNF, , 3015-12, ####[facility] LABCLIA [id number] [place] [address] [place] NON HDL CHOL, NF 210 mg/dL High <130 [facility] Comment on above: Order Comment: Speci men Type: BLOOD SPECIMENOrdering Facility: [facility] Address: [address] [place] [address] Result Comment: <130 mg/dL, Optimal 130-159 mg/dL, Near optimal/above optimal 160-189 mg/dL, Borderline high 190-219 mg/dL, High >219 mg/dL, Very high Secondary prevention optimal non HDL Cholesterol levels are recommended to be <100 mg/dL Performed By: #### L IPNF, , 3015-12, 50339-5 ####[facility] LABCLIA [id number] [place] [address] [place] T CHOL/HDL RATIO NF 6.53 mg/dL High <5.10 [facility] Comment on above: Order Comment: Speci men Type: BLOOD SPECIMENOrdering Facility: [facility] Address: [address] [place] [address] Performed By: #### L IPNF, , 3015-12, 34730-7 ####[facility] LABCLIA [id number] [place] [id number] [place] TRIGLYCERIDES, NF 210 mg/dL High <150 [facility] Comment on above: Order Comment: Speci men Type: BLOOD SPECIMENOrdering Facility: [facility] Address: [address] [place] [address] Result Comment: <150 mg/dL, Normal 150-199 mg/dL, Borderline high 200-499 mg/dL, High >499 mg/dL, Very high Performed By: #### L IPNF, , 3015-3, 61001-1 ####[facility] LABCLIA [id number] [place] [address] [place] VLDL CHOLESTEROL, NF 42 mg/dL High <30 [facility] Comment on above: Order Comment: Speci men Type: BLOOD SPECIMENOrdering Facility: [facility] Address: [address] [place] [address] Performed By: #### L IPNF, , 3, 39578-4 ####[facility] LABCLIA [id number] [place] [address] [place] Magnesium SerPl-mCncon 02-10 Magnesium [Mass/Vol] 2.3 mg/dL Normal 1.7-2.3 [facility] Comment on above: Order Comment: Speci men Type: BLOOD SPECIMENOrdering Facility: [facility] Address: [address] [place] [address] Performed By: #### L IPNF, , 3, 74207-6 ####[facility] LABCLIA [id number] [place] [address] [place] TSH SerPl-aCncon 02-11-2024 TSH Qn 1.870 m[IU]/L Normal 0.270-4.200 [facility] Comment on above: Order Comment: Speci men Type: BLOOD SPECIMENOrdering Facility: [facility] Address: [address] [place] [address] Performed By: #### L IPNF, , 3015-3, 14421-6 ####[facility] LABCLIA [id number] [facility] [id number] [address] [place] Bedside Glucoseon 02-05-2022 FINGERSTICK GLU 304 mg/dL High 74-106 [facility] Comment on above: Result Comment: SANGITA CARRILLO OF PATIENT CARE PER NURSING PROTOCOL Performed By: #### L 501.080 #### [facility] [address] [place], [address] COVID 19, [facility](RT COLLECT )on 02-05-2022 SARS-CoV-2 (COVID-19) RNA NEGRA+probe Ql (Unsp spec) Not detected Normal Not Detect [facility] Comment on above: Result Comment: Norm al Reference Range: Not Detected Method:(RT-PCR) real-time reverse transcriptase PCR iTwixieex iPrism Global Instrument *The Food and Drug Administration (FDA) has issued an Emergency Use Authorization (EAU) for the iPrism Global SARS-CoV-2 Assay for the rapid detection of the virus that causes COVID-19. This test has been validated, but the FDAs independent review of this validation is pending. *Negative results do not preclude infection and should not be used as the sole basis for treatment or patient management. Optimum specimen types and timing for peak viral levels during infections caused by SARS-CoV-2 have not been determined. Collection of multiple specimens from the same patient may be necessary to detect the virus. The possibility of a false negative result should be considered if the patient has clinical presentation or has had recent exposure. Performed By: #### L 3400.2405 #### [facility] [address] [place], [place], [address] Chest 1 View (Portable)on Chest 1 View (Portable) [facility] [address] [place] [address] Chest 1 View (Portable) MR#: [id number] Acct: [id number] Name: EFRAIN HAMM Rep #: [id number] : 1970 M 51 From: Jason Livingston MD PCP: Care Physician,No Primary Status: REG ER Study: Chest 1 View (Portable) Date of Exam: 02/05/22 Exam# [id number] Ordering Dr: Desean Peterson MD STUDY: X-RAY CHEST REASON FOR EXAM: Male, 51 years old. cough, fever TECHNIQUE: AP COMPARISON: None. FINDINGS: Elevation of the right hemidiaphragm with ill-defined opacity in the right lung base. Mild reticulation in the retrocardiac left lower lobe. There is no demonstrated pleural abnormality. Normal size heart. Normal mediastinum and swapnil. Normal visualized pulmonary arteries. Normal visualized aortic arch and descending thoracic aorta. No acute bony process. There is no demonstrated abnormality of the visualized soft tissue structures of the upper abdomen. RAD/Chest 1 View (Portable) IMPRESSION: Bibasilar opacities, right more than left, suggesting infiltrates or atelectasis. Electronically Signed: Jason Livingston MD (Brooks) at 16:04 EDT Reading Location ID and State: [address] [place] [address] , Service support , CC: Dr. Desean Peterson MD; No Primary Care Physician Nc Manager: Signed Normal [facility] Emergency Department Summary on 02-05-2022 Emergency Department Summary [facility] Medical Records Department [address] [place] [id number] Emergency Department Summary 02/05/22 MR#: [id number] Acct: [id number] Name: EFRAIN HAMM Rep #: [id number] : 1970 51 From: Desean Peterson MD PCP: Care Physician,No Primary Status:DEP ER Location: ED HPI History of Present Illness Chief Complaint: General Illness Informant: patient and spouse/S.O. Onset/Context/Timing Onset: Days (3-4) Context: Gradual Onset Timing: Continuous Quality: Achy, coughing Location: All over Current Severity: Moderate Maximum Severity: Moderate Worsened by: Nothing Relieved by: nothing Associated Symptoms Associated Symptoms: Fevers up to 101.5, chills, malaise/fatigue, myalgias Associated Symptoms ED: cough Narrative Narrative: Patient with generalized symptoms, fevers, chills, cough for the last 3 to 4 days. Unvaccinated against COVID. He is an insulin-dependent diabetic. States he had some tingling in his fingers for an hour or so this morning but it was on both sides, symmetric and gone since then without weakness or other focal neurologic symptoms. Last time he checked his blood sugar was yesterday and it was 260, he states that is not unusual for him. No known sick contacts. Presents with family members who are not ill yet. No travel out of the area/country. [facility] Medical History (Updated 02/05/22 @ 21:[address] Desean Peterson MD) IDDM (insulin dependent diabetes mellitus) Home Medications levofloxacin 750 mg PO DAILY 5 Days #5 tab 02/05/22 [Rx Last Taken Unknown] Allergy/AdvReac Type Severity Reaction Status Date / Time naproxen [From Aleve] Allergy Other Verified 02/05/22 14:57 Social History Smoking Status: Current every day smoker tobacco type: cigarettes ROS ROS ED Constitutional Constitutional ED: Reports body ache(s), chills, fatigue, fever(s), headache(s) and malaise Eyes Eyes: Denies change in vision or diplopia ENT ENT ED: Denies rhinorrhea or sore throat Cardiovascular Cardiovascular: Denies chest pain or palpitations Respiratory/Chest Respiratory/Chest: Reports cough; Denies dyspnea or dyspnea on exertion Gastrointestinal Gastrointestinal: Denies abdominal pain, diarrhea, nausea or vomiting Genitourinary Genitourinary ED: Denies dysuria or hematuria Musculoskeletal Musculoskeletal: Denies back pain or neck pain Integumentary Denies abscess or rash Neurologic Neurologic: Reports headache(s); Denies paresthesias or weakness Psychiatric Psychiatric: Denies anxiety or suicidal thoughts EXAM Physical Exam Const Vital Signs: 02/05/22 14:54 02/05/22 15:46 02/05/22 16:48 Temperature 98.2 F Temperature Source Temporal Pulse Rate 94 79 Respiratory Rate 18 18 Respiratory Effort Normal Respiratory Pattern Normal Blood Pressure 149/82 H 126/68 H Blood Pressure Mean 104 87 Pulse Ox 99 92 Oxygen Delivery Method Room Air Room Air Positive well nourished and well developed Constitutional Narrative: Malaised-appearing, no distress General Appearance ED: well developed and NAD HEENT Reports moist mucous membranes normocephalic and atraumatic Eyes PERRL and EOMs intact bilaterally Neck full ROM and supple Resp normal respiratory effort and clear to auscultation bilaterally Cardio regular rate, regular rhythm and no murmurs Rate: Negative for tachycardic GI non-tender and non-distended Auscultation: normoactive bowel sounds Palpation: soft Back/Spine no CVA tenderness General Back: other FROM Extremity normal to inspection and no calf tenderness General Extremety ED: Negative for edema, pulses abnormal or tenderness General Extremity: Negative for edema or pulses abnormal Neuro oriented x3, CN's II-XII intact bilaterally and no sensory deficits noted Sensorium / Orientation: awake and alert Motor Exam: strength 5/5 throughout Skin no rashes or lesions noted and no wounds MDM MDM MDM Narrative Medical decision making narrative: 1 view chest x-ray showing bibasilar mild opacities on my interpretation. Radiology in agreement, unclear if these are infiltrates or atelectasis. His rapid COVID and rapid influenza swabs both returned negative. His blood sugar is 304, he is on a sliding scale and can treat that it himself at home. As I discussed with the patient, since he is unvaccinated I think this is COVID until proven otherwise. He needs PCR to determine if this is a false negative rapid test which is more likely to occur in this current phase of the pandemic when omicron type II is the most prominent subtype at this time. He understands this but did not want to wait for the swab and wanted to go home. I reviewed his results later, the PCR did return negative, I called him and told (more content not included)... Normal [facility] Glucose Glucometer (dC) [M ass/Vol]on 02-05-2022 Glucose [Mass/Vol] 304 mg/dL 74-106 [facility] Work Phone: Comment on above: MANAGEMENT OF PATIEN T CARE PER NURSING PROTOCOL M101.0111on 02-05-2022 M101.0111 *Negative results fr om patients with symptom onset beyond five days should be treated as presumptive and confirmed by a molecular assay if clinically necessary. Negative results should not be used as the sole basis for treatment or for patient management. FLUABV+SARS-CoV2 Ag Pnl Up resp IA.rapid *Positive results do not differentiate between SARS-CoV and SARS-CoV-2. FLUABV+SARS-CoV2 Ag Pnl Up resp IA.rapid Negative Influenza results should be confirmed with FLU PANEL MOLECULAR if indicated. FLUABV+SARS-CoV2 Ag Pnl Up resp IA.rapid * This test has not been FDA cleared or approved; the test has been authorized by FDA under an Emergency Use Authorization (EAU) for use by laboratories certified under CLIA that meet the requirements to perform moderate, high, or waived complexity tests. FLUABV+SARS-CoV2 Ag Pnl Up resp IA.rapid Normal Reference Range: Negative Jaimie, NATE method SARS-CoV-2 (COVID 19) Negative Influenza Ag, Direct Presumptive NEGATIVE for Influenza A/B Antigen (See Note) Normal [facility] Comment on above: Performed By: #### M 101.0111 #### [facility] [address], [address] No Panel Informationon 02-05 SARS-CoV-2 & FLU Antigen (Rapid) [facility] Work Phone: Vital Signs Date Time Vital Sign Value Performing Clinician Facility 08-15-2024 15:12-0500 Body mass index (BMI) [Ratio] 29.16 kg/m2 Kaela Martinez APRN.OFFICE SUPPORT SPECIALIST Work Phone: [facility] 08-15-2024 15:12-0500 Body weight 88.91 kg Kaela Martinez APRN.CNP Work Phone: [facility] 08-15-2024 15:12-0500 Diastolic blood pressure 80 mm[Hg] Kaela Martinez APRN.CNP Work Phone: [facility] 08-15-2024 15:12-0500 Heart rate 76 /min Kaela Martinez APRN.CNP Work Phone: [facility] 08-15-2024 15:12-0500 Respiratory rate 16 /min Kaela Suppan DRAGLINE OPERATOR HELPER.OFFICE SUPPORT SPECIALIST Work Phone: [facility] 08-15-2024 15:12-0500 SaO2% (BldA) [Mass fraction] 95 % Kaela Suppan DRAGLINE OPERATOR HELPER.OFFICE SUPPORT SPECIALIST Work Phone: [facility] 08-15-2024 15:12-0500 Systolic blood pressure 142 mm[Hg] Kaela Suppan DRAGLINE OPERATOR HELPER.OFFICE SUPPORT SPECIALIST Work Phone: [facility] 02-11-2024 15:49-0400 Body mass index (BMI) [Ratio] 30.79 kg/m2 Kaela Suppan DRAGLINE OPERATOR HELPER.DAIRY BACTERIOLOGIST Work Phone: [facility] 02-11-2024 15:49-0400 Body weight 93.89 kg Kaela Suppan DRAGLINE OPERATOR HELPER.DAIRY BACTERIOLOGIST Work Phone: [facility] 02-11-2024 15:49-0400 Diastolic blood pressure 82 mm[Hg] Kaela Suppan DRAGLINE OPERATOR HELPER.DAIRY BACTERIOLOGIST Work Phone: [facility] 02-11-2024 15:49-0400 Heart rate 87 /min Kaela Suppan DRAGLINE OPERATOR HELPER.DAIRY BACTERIOLOGIST Work Phone: [facility] 02-11-2024 15:49-0400 SaO2% (BldA) [Mass fraction] 97 % Kaela Suppan DRAGLINE OPERATOR HELPER.DAIRY BACTERIOLOGIST Work Phone: [facility] 02-11-2024 15:49-0400 Systolic blood pressure 142 mm[Hg] Kaela Suppan DRAGLINE OPERATOR HELPER.DAIRY BACTERIOLOGIST Work Phone: [facility] 07-18-2023 07:170400 Body height 177.8 cm [facility] 07-18-2023 07:170400 Body mass index (BMI) [Ratio] 29.2 kg/m2 [facility] 07-18-2023 07:170400 Body temperature 97.9 [degF] [facility] 07-18-2023 07:17040 Body weight 92.53 kg [facility] 07-18-2023 07:17-0400 Diastolic blood pressure 88 mm[Hg] [facility] 07-18-2023 07:17-0400 Heart rate 80 /min [facility] 07-18-2023 07:17-0400 Respiratory rate 16 /min [facility] 07-18-2023 07:17-0400 SaO2% (BldA) [Mass fraction] 99 % [facility] 07-18-2023 07:17-0400 Systolic blood pressure 179 mm[Hg] [facility] 12-06-2022 12:08-0500 Body temperature 98.42 [degF] STEPHENIE REICHFIELD DO [facility] 12-06-2022 12:08-0500 Diastolic Blood Pressure Non-Invasive 85 1 STEPHENIE REICHFIELD DO [facility] 12-06-2022 12:08-0500 Heart rate 81 /min STEPHENIE REICHFIELD DO [facility] 12-06-2022 12:08-0500 Respiratory rate 16 /min STEPHENIE REICHFIELD DO [facility] 12-06-2022 12:08-0500 Systolic Blood Pressure Non-Invasive 176 1 STEPHENIE REICHFIELD DO [facility] 10-20-2022 13:04-0500 Body temperature 98.78 [degF] INDU BROWN MD [facility] 10-20-2022 13:04-0500 Body weight 95 kg INDU BROWN MD [facility] 10-20-2022 13:04-0500 Diastolic Blood Pressure Non-Invasive 96 1 INDU BROWN MD [facility] 10-20-2022 13:04-0500 Heart rate 88 /min INDU BROWN MD [facility] 10-20-2022 13:04-0500 Respiratory rate 16 /min INDU BROWN MD [facility] 10-20-2022 13:04-0500 Systolic Blood Pressure Non-Invasive 179 1 INDU BROWN MD [facility] 02-14-2022 14:20-0400 Body weight 90.72 kg NA Arroyo PA-C Work Phone: [facility] 02-14-2022 14:20-0400 Diastolic blood pressure 74 mm[Hg] NA Arroyo PA-C Work Phone: [facility] 02-14-2022 14:20-0400 Heart rate 77 /min NA Arroyo PA-C Work Phone: [facility] 02-14-2022 14:20-0400 Respiratory rate 20 /min NA Arroyo PA-C Work Phone: [facility] 02-14-2022 14:20-0400 SaO2% (BldA) [Mass fraction] 96 % NA Arroyo PA-C Work Phone: [facility] 02-14-2022 14:20-0400 Systolic blood pressure 128 mm[Hg] NA Arroyo PA-C Work Phone: [facility] 02-05-2022 16:48-0400 Diastolic blood pressure 68 mm[Hg] [facility] Work Phone: 02-05-2022 16:48-0400 Heart rate 79 /min [facility] Work Phone: 02-05-2022 16:48-0400 Respiratory rate 18 /min [facility] Work Phone: 02-05-2022 16:48-0400 SaO2% (BldA) [Mass fraction] 92 % [facility] Work Phone: 02-05-2022 16:48-0400 Systolic blood pressure 126 mm[Hg] [facility] Work Phone: 02-05-2022 14:54-0400 Body height 177.8 cm [facility] Work Phone: 02-05-2022 14:54-0400 Body mass index (BMI) [Ratio] 31.5 kg/m2 [facility] Work Phone: 02-05-2022 14:54-0400 Body temperature 98.2 [degF] [facility] Work Phone: 02-05-2022 14:54-0400 Body weight 99.79 kg [facility] Work Phone: Encounters Encounter Date Encounter Type Care Provider Facility Start: 05-21-2025 End: 05-21-2025 Emergency department patient visit RAY STOVER MD [facility] Start: 11-21-2024 End: 11-21-2024 ambulatory DESEAN ABEL Facility:[facility] Start: 11-21-2024 End: 11-21-2024 Patient encounter procedure Desean Abel MD Work Phone: Orthopaedics Comment on above: Trigger ring finger of right hand (Primary Dx); Dupuytren's contracture of right hand Start: 10-31-2024 End: 10-31-2024 ambulatory CLARE SEETOANITA Facility:[facility] Start: 10-31-2024 End: 10-31-2024 Patient encounter procedure Clare Scherer PA-C Work Phone: Orthopaedics Comment on above: Trigger ring finger of right hand (Primary Dx); Dupuytren's contracture of right hand Start: 09-15-2024 End: 09-21-2024 Telephone encounter Desean Abel MD Work Phone: Orthopaedics Comment on above: Schedule Surgery Start: 09-12-2024 End: 09-12-2024 ambulatory DESEAN ABEL Facility:[facility] Start: 09-12-2024 End: 09-12-2024 Patient encounter procedure Desean Abel MD Work Phone: Orthopaedics Comment on above: Trigger ring finger of right hand (Primary Dx); Dupuytren's disease of palm Start: 08-23-2024 End: 08-23-2024 Telephone encounter Kaela Martinez DRAGLINE OPERATOR HELPER.OFFICE SUPPORT SPECIALIST Work Phone: [address] [place] [address] Start: 08-22-2024 End: 08-23-2024 Telephone encounter Kaela Martinez DRAGLINE OPERATOR HELPER.OFFICE SUPPORT SPECIALIST Work Phone: [facility] Comment on above: Results Start: 08-16-2024 End: 08-16-2024 Telephone encounter Kaela Martinez DRAGLINE OPERATOR HELPER.OFFICE SUPPORT SPECIALIST Work Phone: [facility] [place] Comment on above: Insurance Authorizat ion Start: 08-15-2024 End: 08-15-2024 Subsequent hospital visit by physician Asha [facility] [place] Work Phone: Radiology Comment on above: Dupuytren contractur e of right hand [M72.0] Start: 08-15-2024 End: 08-15-2024 ambulatory KALEA A SUPPAN Facility:[facility] Start: 08-15-2024 End: 08-15-2024 Office outpatient visit 25 minutes Kaela Martinez DRAGLINE OPERATOR HELPER.OFFICE SUPPORT SPECIALIST Work Phone: [facility] Comment on above: Dupuytren contractur e of right hand (Primary Dx); Hyperlipidemia, mixed; Uncontrolled type 2 diabetes mellitus with hyperglycemia (HCC); Gastroesophageal reflux disease without esophagitis; Neoplasm of uncertain behavior of skin of face; Special screening examination for viral disease Start: 08-15-2024 End: 08-15-2024 ambulatory KAELA A SUPPAN Facility:[facility] Start: 03-16-2024 Telephone encounter Brendon Arroyo PA-C Work Phone: [facility] Comment on above: Rx issue Start: 02-17-2024 Telephone encounter Brendon Arroyo PA-C Work Phone: [facility] Comment on above: Medication Problem Start: 02-12-2024 Telephone encounter Kaela Martinez APRN.DAIRY BACTERIOLOGIST Work Phone: [facility] Comment on above: Results Medication Problem Start: 02-11-2024 End: 02-11-2024 ambulatory KAELA MARTINEZ Facility:[facility] Start: 02-11-2024 End: 02-11-2024 Office outpatient visit 25 minutes Kaela Kennedy Ricky DRAGLINE OPERATOR HELPER.DAIRY BACTERIOLOGIST Work Phone: [facility] Comment on above: Tobacco use disorder (Primary Dx); Hyperlipidemia, mixed; Uncontrolled type 2 diabetes mellitus with hyperglycemia (HCC); Gastroesophageal reflux disease without esophagitis; Actinic keratosis Start: 07-18-2023 End: 07-18-2023 Emergency department patient visit [facility] Work Phone: Start: 01-27-2023 Telephone encounter Brendon Arroyo PA-C Work Phone: [facility] Comment on above: Insurance Authorizat ion (Trulicity ) Start: 01-23-2023 Telephone encounter Brendon Arroyo PA-C Work Phone: [facility] Comment on above: Results Start: 12-06-2022 End: 12-06-2022 [facility] Start: 12-06-2022 End: 12-06-2022 Emergency department patient visit [facility] Start: 10-20-2022 End: 10-20-2022 Emergency department patient visit INDU BROWN MD Facility:B Start: 10-20-2022 End: 10-20-2022 Emergency department patient visit INDU BROWN MD [facility] Start: 02-14-2022 End: 02-14-2022 Patient encounter procedure Brendon Arroyo PA-C Work Phone: [facility] Comment on above: Uncontrolled type 2 diabetes mellitus with hyperglycemia (HCC) (Primary Dx); Screening for colon cancer; Tobacco use disorder; Hyperlipidemia, mixed; [place] cardiac risk >20% in next 10 years; Community acquired pneumonia, bibasilar Start: 02-05-2022 End: 02-05-2022 Emergency department patient visit [facility] Start: 12-18-2017 Emergency department patient visit UNKNOWN PROVIDER [facility] Start: 10-05-2017 Ambulatory Latrice Gomez [facility] Procedures Date Procedure Procedure Detail Performing Clinician Start: 10-29-2023 Adult depression screening assessment Kaela Martinez APRN.OFFICE SUPPORT SPECIALIST Work Phone: Start: 02-05-2022 Plain chest X-ray Start: 02-05-2022 SARS-CoV-2 & FLU Ant igen (Rapid) Start: 06-24-2021 Adult depression screening assessment TAVO Arroyo PA-C Work Phone: None (qualifier value) MODESTA BROWN MD Plan of Treatment Date Care Activity Detail Author Start: 08-15-2025 Annual PCP Team Trimming Department Blocker mitchell Disease Visit Annual PCP Team Chronic Disease Visit [facility] Start: 08-15-2025 Diabetic foot examination Diabetic F oot Exam [facility] Start: 08-15-2025 Glaucoma screening Dilated Retinal E xam [facility] Start: 08-15-2025 Hepatitis B screening Urine Albumin:Creatinine Ratio [facility] Start: 08-15-2025 Hepatitis B surface antibody level LDL Cholesterol [facility] Start: 08-15-2025 HIV screening HIV Screening [facility] Comment on above: Postponed from 12/21 (Declined at this time) Start: 08-15-2025 Screening for malign ant neoplasm of colon Colorectal Cancer Screening [facility] Comment on above: Postponed from 12/21 (Declined at this time) Start: 04-03-2025 Influenza vaccination Influenza Vacc ine (#1) [facility] Comment on above: Postponed from 06/05 (Declined at this time) Start: 02-13-2025 End: 02-13-2025 Patient encounter procedure 02/13/2025 4:20 PM EDT Office Visit [facility] [place] [address] [place] [address] Kaela Martinez APRN.OFFICE SUPPORT SPECIALIST [address] [place], [place] [id number] 6 month follow up [facility] Comment on above: 6 month follow up Start: 02-12-2025 Hemoglobin A1c measurement HbA1C [facility] Start: 02-10-2025 Hepatitis B screening Urine Albumin:Creatinine Ratio [facility] Start: 02-10-2025 Hepatitis B surface antibody level LDL Cholesterol [facility] Start: 01-13-2025 Screening for malign ant neoplasm of lung Lung Cancer Screening [facility] Comment on above: Postponed from 12/21 (Declined at this time) Start: 11-21-2024 End: 11-21-2024 Patient encounter procedure 11/21/2024 3:30 PM EST Office Visit Orthopaedics [address] [place], [place] [id number] Desean Abel MD [address] [place] [address] Post op Right trigger finger release and palmar fasciectomy [facility] Comment on above: Post op Right trigge r finger release and palmar fasciectomy Start: 10-31-2024 End: 10-31-2024 Patient encounter procedure 10/31/2024 3:00 PM EST Office Visit Orthopaedics [address] [place], [place] [id number] Clare Scherer PA-C [address] [place] [address] Post op Right ring trigger finger release and ring ring finger palmar fasciectomy [facility] Comment on above: Post op Right ring t medical leader finger release and ring ring finger palmar fasciectomy Start: 10-29-2024 Annual PCP Team Trimming Department Blocker mitchell Disease Visit Annual PCP Team Chronic Disease Visit [facility] Start: 10-29-2024 Anxiety Screening Anxiety Screening [facility] Start: 10-29-2024 Depression Screening Depression Scre ening [facility] Start: 10-29-2024 Hepatitis B Vaccine (1 of 3 - 19+ 3-dose series) Hepatitis B Vaccine (1 of 3 - 19+ 3-dose series) [facility] Comment on above: Postponed from 12/21 (Declined at this time) Start: 10-29-2024 Pneumococcal vaccination Pneum ococcal Vaccine (1 of 2 - PCV) [facility] Comment on above: Postponed from 12/21 (Declined at this time) Start: 10-29-2024 Shingrix Vaccine (1 of 2) Henao grix Vaccine (1 of 2) [facility] Comment on above: Postponed from 12/21 (Declined at this time) Start: 10-29-2024 Urine microalbumin profile DTaP,Tdap,Td Vaccine (1 - Tdap) [facility] Comment on above: Postponed from 12/21 (Declined at this time) Start: 10-20-2024 End: 10-20-2024 Admission to same day surgery center 10/20/2024 2:13 PM EST - 10/20/2024 3:03 PM EST Surgery Ambulatory Surgery [address] [place] [address] Desean Abel MD [address] [place] [address] EXCISION CONTRACTURE DUPUYTREN'S Ambulatory Surgery Comment on above: EXCISION CONTRACTURE DUPUYTREN'S Start: 10-20-2024 End: 10-20-2024 Fasciotomy palmar open partial EXCISION CONTRACTURE DUPUYTREN'S Trigger ring finger of right hand Dupuytren's contracture of right hand 10/20/2024 2:13 PM EST [facility] [place] [facility] Start: 10-20-2024 Subsequent hospital visit by physician 10/20/2024 2:13 PM EST Hospital Encounter Ambulatory Surgery [address] [place] [address] Desean Abel MD [address] [place] [address] Trigger ring finger of right hand [M65.341], Dupuytren's contracture of right hand [M72.0] Ambulatory Surgery Comment on above: Trigger ring finger of right hand [M65.341], Dupuytren's contracture of right hand [M72.0] Start: 10-20-2024 End: 10-20-2024 Tendon sheath incision RELEASE TRIGGER FINGER Trigger ring finger of right hand Dupuytren's contracture of right hand 10/20/2024 2:13 PM EST [facility] Start: 10-04-2024 End: 10-04-2024 Patient encounter procedure 10/04/2024 9:30 AM EST Office Visit Podiatry [address] [facility] [place] [address] Benjamin Robertson [address] [address] Uncontrolled type 2 diabetes mellitus with hyperglycemia (HCC) [E11.65] Podiatry Comment on above: Uncontrolled type 2 diabetes mellitus with hyperglycemia (HCC) [E11.65] Start: 09-12-2024 End: 09-12-2024 Patient encounter procedure Orthopaedics Comment on above: Dupuytren contractur e of right hand [M72.0] Dupuytren contractur e of right hand [M72.0], mild osteoarthritis of the hands Start: 08-15-2024 End: 08-15-2024 Patient encounter procedure 08/15/2024 3:00 PM EST Office Visit [facility] [address] [place] [address] Kaela Martinez APRN.DAIRY BACTERIOLOGIST [address] [place] [address] 6 month follow up [facility] Comment on above: 6 month follow up Start: 08-15-2024 End: 11-14-2024 CBC W Auto Differential panel - Blood [facility] Comment on above: Expected: 08/15/2024 , Expires: 11/14/2024 Start: 08-15-2024 End: 11-14-2024 Cobalamin (Vitamin B12) [Mass/volume] in Serum or Plasma [facility] Comment on above: Expected: 08/15/2024 , Expires: 11/14/2024 Start: 08-15-2024 End: 11-14-2024 Comprehensive metabolic 2000 panel - Serum or Plasma [facility] Comment on above: Expected: 08/15/2024 , Expires: 11/14/2024 Start: 08-15-2024 End: 11-14-2024 Hemoglobin A1c in Blood [facility] Comment on above: Expected: 08/15/2024 , Expires: 11/14/2024 Start: 08-15-2024 End: 11-14-2024 Hepatitis C virus Ab [Presence] in Serum [facility] Comment on above: Expected: 08/15/2024 , Expires: 11/14/2024 Start: 08-15-2024 End: 11-14-2024 LIPID PANEL, NONFASTING [facility] Comment on above: Expected: 08/15/2024 , Expires: 11/14/2024 Start: 08-15-2024 End: 11-14-2024 Magnesium [Mass/volume] in Serum or Plasma [facility] Comment on above: Expected: 08/15/2024 , Expires: 11/14/2024 Start: 08-15-2024 End: 11-14-2024 Microalbumin/Creatinine [Mass Ratio] in Urine [facility] Comment on above: Expected: 08/15/2024 , Expires: 11/14/2024 Start: 08-15-2024 End: 11-14-2024 Thyrotropin [Units/volume] in Serum or Plasma [facility] Comment on above: Expected: 08/15/2024 , Expires: 11/14/2024 Start: 06-05-2024 Influenza vaccination Influenz a Vaccine (Season Ended) [facility] Start: 05-13-2024 Hemoglobin A1c measurement HbA1C [facility] Start: 02-11-2024 End: 05-12-2024 Hemoglobin A1c in Blood [facility] Work Phone: Comment on above: Expected: 02/11/2024 , Expires: 05/12/2024 Start: 01-30-2024 Hemoglobin A1c measurement HbA1C [facility] Start: 01-22-2024 Hepatitis B screening URINE ALBUMIN:CREATININE RATIO [facility] Start: 01-22-2024 Hepatitis B surface antibody level LDL CHOLESTEROL [facility] Start: 01-21-2024 ANNUAL PCP TEAM CORK FLOOR INSTALLER MITCHELL DISEASE VISIT ANNUAL PCP TEAM CHRONIC DISEASE VISIT [facility] Start: 01-21-2024 HEPATITIS C SCREENING HEPATITIS C SC DANIELLE [facility] Comment on above: Postponed from 12/21 (Declined at this time) Start: 01-21-2024 HIV SCREENING HIV SCREENING [facility] Comment on above: Postponed from 12/21 (Declined at this time) Start: 10-05-2023 Behavioral Health Screening Behavioral Health Screening [facility] Start: 07-23-2023 Hemoglobin A1c/Hemoglobin.total in Blood HBA1C [facility] Start: 07-18-2023 [facility] Start: 06-05-2023 Influenza vaccination INFLUENZ A (Season Ended) [facility] Start: 04-24-2023 End: 06-24-2023 Basic metabolic 2000 panel - Serum or Plasma BASIC METABOLIC PNL Lab Routine Uncontrolled type 2 diabetes mellitus with hyperglycemia (HCC) Expected: 04/24/2023, Expires: 06/24/2023 [facility] Work Phone: Comment on above: Expected: 04/24/2023 , Expires: 06/24/2023 Start: 04-24-2023 End: 06-24-2023 Hemoglobin A1c in Blood HGB A1C Lab Routine Uncontrolled type 2 diabetes mellitus with hyperglycemia (HCC) Expected: 04/24/2023, Expires: 06/24/2023 [facility] Work Phone: Comment on above: Expected: 04/24/2023 , Expires: 06/24/2023 Start: 02-14-2023 ANNUAL PCP TEAM CORK FLOOR INSTALLER MITCHELL DISEASE VISIT ANNUAL PCP TEAM CHRONIC DISEASE VISIT [facility] Start: 02-14-2023 ONE PNEUMOVAX PRIOR TO AGE 65 ONE PNEUMOVAX PRIOR TO AGE 65 [facility] Comment on above: Postponed from 12/21 (Declined at this time) Start: 02-14-2023 PNEUMOCOCCAL (1 - PCV) PNEUMOCOCCAL (1 - PCV) [facility] Comment on above: Postponed from 12/21 (Declined at this time) Start: 02-14-2023 SHINGRIX VACCINE (1 of 2) HENAO GRIX VACCINE (1 of 2) [facility] Comment on above: Postponed from 12/21 (Declined at this time) Start: 02-14-2023 Urine microalbumin profile DTAP,TDAP,TD (1 - Tdap) [facility] Comment on above: Postponed from 12/21 (Declined at this time) Start: 01-23-2023 Hepatitis B surface antibody level LDL CHOLESTEROL [facility] Start: 08-12-2022 3 comp foot exam completed DIABETIC FOOT EXAM [facility] Start: 08-12-2022 Diabetic foot examination Diabetic F oot Exam [facility] Start: 06-29-2022 Hepatitis B screening URINE ALBUMIN:CREATININE RATIO [facility] Start: 06-24-2022 Adult depression screening assessment DEPRESSION SCREENING [facility] Start: 06-24-2022 COVID-19 VACCINE (#1) COVID-19 VACCI NE (#1) [facility] Comment on above: Postponed from 12/21 (Declined at this time) Start: 06-24-2022 HEPATITIS C SCREENING HEPATITIS C SC REENING [facility] Comment on above: Postponed from 12/21 (Declined at this time) Start: 06-24-2022 HIV SCREENING HIV SCREENING [facility] Comment on above: Postponed from 12/21 (Declined at this time) Start: 06-05-2022 Influenza vaccination INFLUENZ A (Season Ended) [facility] Start: 05-17-2022 End: 07-17-2022 Alanine aminotransferase [Enzymatic activity/volume] in Serum or Plasma ALT/SGPT Lab Routine Hyperlipidemia, mixed Expected: 05/17/2022, Expires: 07/17/2022 [facility] Work Phone: Comment on above: Expected: 05/17/2022 , Expires: 07/17/2022 Start: 05-17-2022 End: 07-17-2022 Hemoglobin A1c/Hemoglobin.total in Blood HGB A1C Lab Routine Uncontrolled type 2 diabetes mellitus with hyperglycemia (HCC) Expected: 05/17/2022, Expires: 07/17/2022 [facility] Work Phone: Comment on above: Expected: 05/17/2022 , Expires: 07/17/2022 Start: 05-17-2022 End: 07-17-2022 LIPID PANEL BASIC LIPID PANEL BASIC Lab Routine Hyperlipidemia, mixed [place] cardiac risk >20% in next 10 years Expected: 05/17/2022, Expires: 07/17/2022 [facility] Work Phone: Comment on above: Expected: 05/17/2022 , Expires: 07/17/2022 Start: 04-24-2022 Hemoglobin A1c/Hemoglobin.total in Blood HBA1C [facility] Start: 02-14-2022 End: 04-16-2022 CK CREATINE KINASE CK CREATINE KINASE Lab Routine Hyperlipidemia, mixed Expected: 02/14/2022, Expires: 04/16/2022 [facility] Work Phone: Comment on above: Expected: 02/14/2022 , Expires: 04/16/2022 Start: 12-22-2019 Influenza vaccination LUNG CANCER [facility] Start: 12-22-2019 Screening for malign ant neoplasm of lung Lung Cancer Screening [facility] Start: 12-22-2019 Shingrix Vaccine (1 of 2) Henao grix Vaccine (1 of 2) [facility] Start: 2014 COLOGUARD (FIT-DNA) COLOGUARD (FIT-D NA) [facility] Start: 2014 Colonoscopy COLONOSCOPY [facility] Start: 2014 COLORECTAL CANCER SCREENING COLORECTAL CANCER SCREENING [facility] Start: [address] COLONOGRAPHY [facility] Start: 2014 FECAL OCCULT BLOOD FECAL OCCULT BLOO D [facility] Start: 2014 Screening for malign ant neoplasm of colon [facility] Start: 2014 SIGMOIDOSCOPY SIGMOIDOSCOPY [facility] Start: 1988 Hepatitis B Vaccine (1 of 3 - 19+ 3-dose series) Hepatitis B Vaccine (1 of 3 - 19+ 3-dose series) [facility] Start: 1988 Pneumococcal Vaccine : 50+ (1 of 2 - PCV) Pneumococcal Vaccine: 50+ (1 of 2 - PCV) [facility] Start: 1988 Urine microalbumin profile DTaP,Tdap,Td Vaccine (1 - Tdap) [facility] Start: 12-22-1987 Anxiety Screening Anxiety Screening [facility] Start: 12-22-1987 Depression Screening Depression Scre ening [facility] Start: 12-22-1987 Hepatitis C screening Hepatitis C [facility] Start: 12-22-1987 HIV screening HIV Screening [facility] Start: 12-22-1979 Glaucoma screening Dilated Retinal E xam [facility] Start: 12-22-1979 Hepatitis C antibody , confirmatory test DILATED RETINAL EXAM [facility] Start: 1969 HEPATITIS B (1 of 3 - 3-dose series) HEPATITIS B (1 of 3 - 3-dose series) [facility] COLOGUARD COLOGUARD Lab Ro utine Screening for colon cancer Ordered: 02/14/2022 [facility] Work Phone: Comment on above: Ordered: 02/14/2022 Patient Education [facility] Work Phone: Patient referral [facility] Work Phone: End: 09-14-2025 XR Hand - right PA and Lateral and Oblique XR HAND GENERAL 3V PA/LAT/OBL RIGHT Radiology Routine Dupuytren contracture of right hand 1 Occurrences starting 08/15/2024 until 09/14/2025 [facility] Work Phone: Comment on above: 1 Occurrences starti ng 08/15/2024 until 09/14/2025 XR Hand - right PA a nd Lateral and Oblique XR HAND GENERAL 3V PA/LAT/OBL RIGHT Radiology Routine Dupuytren contracture of right hand 08/15/2024 4:23 PM EST [facility] Payers Date Payer Category Payer Unknown [id number] 2021 Blue [employer] Blue [employer] BLUE ACCE SS PPO [id number] 2021 Unknown VLADIMIR OBRIEN ACCE SS PPO [id number] 2021-Present [phone] [address] [place] [address] PPO [id number] 2021 Unknown VLADIMIR BERMUDEZ PPO [id number] 2021-Present [phone] [address] [place] [address] PPO [id number] 2021 Unknown [id number] 2020 Private Health Insurance cba [id number] 1970 Unknown [id number] 1970 Unknown [id number] 1969 Unknown [id number] Self-pay Social History Date Type Detail Facility Start: 02-05-2022 End: 07-18-2023 Tobacco smoking status LAIS Unknown if ever smoked [facility] Start: 1970 Sex Assigned At Male A [facility] Start: 02-07-2020 End: 08-15-2024 Tobacco smoking status LAIS Smokes tobacco daily [facility] Work Phone: Start: 02-07-2020 End: 03-04-2023 Cigarettes smoked current (pack per day) - Reported 1 [facility] Start: 02-07-2020 End: 08-15-2024 Tobacco use and exposure Smokeless tobacco non-user [facility] Work Phone: Start: 02-14-2022 End: 12-18-2024 Alcohol intake Ex-drinker (finding) [facility] Start: 06-24-2021 End: 01-20-2023 Tobacco Comment 1-2 ppd. Wants to quit [facility] Start: 1970 Sex Assigned At Not on file C [facility] Start: 02-04-2022 End: 02-14-2022 Exposure to SARS-CoV-2 (event) Not sure [facility] Tobacco smoking status [facility] Start: 12-06-2022 Tobacco smoking status Light t obacco smoker (finding) [facility] History of tobacco use Cigarette Smoker C [facility] Start: 03-04-2023 End: 10-29-2023 Tobacco use panel [facility] Adult Depression Screening Assessment 0 [facility] Start: 02-07-2020 Gender identity Identifies as male gender (finding) [facility] Start: 01-22-2020 Sex Male (finding) [facility] Medical Equipment Procedure Code Equipment Code Equipment Origin al Text Equipment Identifier Dates Test blood sugar (s) 2 times daily. Dx: Type 2 DM - Uncontrolled E11.65 Insulin: No [id number] Start: 10-29-2023 Functional Status Date Assessment Result Facility 12-06-2022 Functional Status Standard Safet y ID band on, Call device within reach, Bed in low position, Wheels locked, Upper/Half-Length side-rails up, Phone within reach, personal items within reach [facility] 10-20-2022 Functional Status ID band on, Call device within reach, Bed in low position, Wheels locked, personal items within reach [facility] Mental Status Date Assessment Result Facility 12-06-2022 Mental Status Orientation Oriented x 4 [facility] 10-20-2022 Mental Status Oriented x 4 [facility] 02-05-2022 Cognitive function Level Of Cons ciousness Awake;Alert;Appropriate;Follow s Commands [facility] Work Phone: Clinical Notes 02-14-2022 to 05-21-2025 Note Date & Type Note Facility 05-21-2025 Hospital Discharg e instructions Patient Education 05/21/2025 11:38:08 Shoulder Sprain Shoulder Sprain A sprain is a stretching or tearing of the ligaments that hold a joint together. A sprain may take up to 8 weeks to fully heal, depending on how severe it is. Moderate to severe shoulder sprains are treated with a sling or shoulder immobilizer. Minor sprains can be treated without any special support. Home care The following guidelines will help you care for your injury at home: If a sling was given to you, leave it in place for the time advised by your healthcare provider. If you aren t sure how long to wear it, ask for advice. If the sling becomes loose, adjust it so that your forearm is level with the ground. Your shoulder should feel well supported. Put an ice pack on the injured area for 20 minutes every 1 to 2 hours the first day. You can make your own ice pack by putting ice cubes in a plastic bag. A bag of frozen peas or something similar works well too. Wrap the bag in a thin towel. Continue with ice packs 3 to 4 times a day for the next 2 to 3 days. Then use the pack as needed to ease pain and swelling. You may use acetaminophen or ibuprofen to control pain, unless another pain medicine was prescribed. If you have chronic liver or kidney disease, talk with your healthcare provider before using these medicines. Also talk with your provider if you ve had a stomach ulcer or gastrointestinal bleeding. Shoulder joints become stiff if left in a sling for too long. You should start range of motion exercises about 7 to 10 days after the injury. Talk with your provider to find out what type of exercises to do and how soon to start. Follow-up care Follow up with your healthcare provider, or as advised. Any X-rays you had today don t show any broken bones, breaks, or fractures. Sometimes fractures don t show up on the first X-ray. Bruises and sprains can sometimes hurt as much as a fracture. These injuries can take time to heal completely. If your symptoms don t improve or they get worse, talk with your provider. You may need a repeat X-ray or other treatments. When to seek medical advice Call your healthcare provider right away if any of these occur: Shoulder pain or swelling in your arm that gets worse Fingers become cold, blue, numb, or tingly Large amount of bruising of the shoulder or upper arm Fever or chills [id number] [employer] [place] [address], [place] [address]. All rights reserved. This information is not intended as a substitute for professional medical care. Always follow your healthcare professional's instructions. Follow Up Care 05/21/2025 10:50:20 With:Follow up with primary care provider Address:Unknown When:2-4 days [facility] Caesarmarilyn Castellanos 05-21-2025 Note Discharge Instructions Thank you for allowing [facility] to assist you with your healthcare needs. The following is important discharge information regarding your hospital visit. Diagnosis from Today's Visit Sprain of left shoulder What to Do Next Instructions from Your Care Team No qualifying data available. Post Acute Orders No qualifying data available. You Need to Schedule the Following Appointments Follow Up with Follow up with primary care provider When:Within 2-4 days Allergies NKA Medications Please ask your primary doctor or pharmacist before taking any other medication not listed, including over the counter drugs, herbal medications, vitamins and or supplements as they may interact with your home medications. What How Much When Instructions Last Dose New cyclobenzaprine (cyclobenzaprine 10 mg oral tablet) 1 tab(s) by mouth Three (3) times a day Duration: 7 Days Printed Prescription New naproxen (naproxen 250 mg oral tablet) 1 tab(s) by mouth Two (2) times a day Duration: 10 Days Printed Prescription Unchanged dulaglutide (Trulicity Pen 1.5 mg/ 0.5 mL subcutaneous solution) 1.5 Milligram Subcutaneous Every week Please take this list to your next doctor s visit. Bring all medications you take, including over the counter medications, herbals and other supplements with you to your doctor s visit. Patients and families are reminded to discard old lists and to update any records with all medication providers or retail pharmacies. Education Materials Shoulder Sprain A sprain is a stretching or tearing of the ligaments that hold a joint together. A sprain may take up to 8 weeks to fully heal, depending on how severe it is. Moderate to severe shoulder sprains are treated with a sling or shoulder immobilizer. Minor sprains can be treated without any special support. Home care The following guidelines will help you care for your injury at home: If a sling was given to you, leave it in place for the time advised by your healthcare provider. If you aren t sure how long to wear it, ask for advice. If the sling becomes loose, adjust it so that your forearm is level with the ground. Your shoulder should feel well supported. Put an ice pack on the injured area for 20 minutes every 1 to 2 hours the first day. You can make your own ice pack by putting ice cubes in a plastic bag. A bag of frozen peas or something similar works well too. Wrap the bag in a thin towel. Continue with ice packs 3 to 4 times a day for the next 2 to 3 days. Then use the pack as needed to ease pain and swelling. You may use acetaminophen or ibuprofen to control pain, unless another pain medicine was prescribed. If you have chronic liver or kidney disease, talk with your healthcare provider before using these medicines. Also talk with your provider if you ve had a stomach ulcer or gastrointestinal bleeding. Shoulder joints become stiff if left in a sling for too long. You should start range of motion exercises about 7 to 10 days after the injury. Talk with your provider to find out what type of exercises to do and how soon to start. Follow-up care Follow up with your healthcare provider, or as advised. Any X-rays you had today don t show any broken bones, breaks, or fractures. Sometimes fractures don t show up on the first X-ray. Bruises and sprains can sometimes hurt as much as a fracture. These injuries can take time to heal completely. If your symptoms don t improve or they get worse, talk with your provider. You may need a repeat X-ray or other treatments. When to seek medical advice Call your healthcare provider right away if any of these occur: Shoulder pain or swelling in your arm that gets worse Fingers become cold, blue, numb, or tingly Large amount of bruising of the shoulder or upper arm Fever or chills [phone] [place] [address], [place] [address]. All rights reserved. This information is not intended as a substitute for professional medical care. Always follow your healthcare professional's instructions. Additional Information VACCINATE! IT SAVES LIVES! Members of the community who have not yet received the COVID-19 vaccine and would like to receive it can visit one of [facility] vaccine clinics. There are many vaccine clinic locations within the [facility]. For locations and available times, please visit [email or web address] [email or web address] It is important to note that some COVID mobile vaccine clinics are held outdoors and may be canceled in rainy or stormy conditions. To learn more about pediatric vaccinations (ages 5-11), we invite you to visit the [employer]. [email or web address] To learn more about the COVID-19 vaccine, we invite you to visit the CDC website for a list of frequently asked questions. https://www.cdc.gov/coronavirus/ 2019-ncov/vaccines/faq.html [employer] Patient Portal Access Instructions: Stay connected with your healthcare team and access your personal medical information anytime with the [employer] Patient Portal. If you would like a full copy of your medical records please contact the [facility] Medical Records Department Thursday through Thursday between 8a.m. and 4:30p.m. Please follow the directions below to access the portal: 1.Access the email account you provided upon registration to the hospital.2.Look for an invitation email from [facility].3.Open the email and access the invitation link: Accept Invitation to [employer].Fill in the required rothman to create your account. Sign into [email or web address] with your username and password that you created in the above steps to stay up to date. You can then view a summary of results, a summary of your visits, and the ability to download your summaries to your computer or send the information securely to a physician. Remember that your healthcare information is confidential, so carefully consider who you will allow to register on the [facility] Patient Portal for access to your information. You can also access the [facility] Patient Portal on the [employer] heidi. Simply click on Health Records under Health Data and then click on the [employer] logo. HOW TO SAFELY DISPOSE OF PRESCRIPTION MEDICATIONS Please use one of the following methods to safely dispose of your unused medications. 1.Use a drug disposal kit: the drug disposal pouch allows you to safely discard your old and unused drugs. Ask your nurse to give you one when you are discharged.2.Visit a local take-back location: Many local pharmacies and police departments have programs that collect old and unwanted prescription drugs. Call your local pharmacy or go to http://bit.The 3Doodler/3D5Fy1n to find one close to you.3.Make use of household items: Use cat litter or old coffee grounds to dispose medications if other options are not available. Mix your drugs with these household products, seal them in an airtight container and throw it into the garbage. Call [facility]: [phone] to be sure your drugs can be disposed of in this way. Some medicines may require a different approach.4.Never flush your medications down the toilet. IF YOU HAVE BEEN PRESCRIBED AN OPIOIDS FOR PAIN If you have been prescribed an opioid (such as hydrocodone, oxycodone or morphine), it is critical to understand the possible side effects and risks of opioid pain medications. Even when taken as directed, opioids can have several side effects including: Tolerance, meaning you might need to take more of a medication for the same pain relief. Nausea, vomiting and/or constipation. Sleepiness, dizziness, dry mouth, confusion, depression or itching. Physical dependence, meaning you have withdrawal symptoms when a medication is stopped ? this can develop within a few days. KNOW YOUR RESPONSIBILITIES It is important to know exactly how much and how often to take the opioid pain medications you are prescribed. Never take opioids in higher amounts or more often than prescribed. Do not combine opioids with alcohol or other drugs that cause drowsiness, such as benzodiazepines, also known as benzos, including diazepam and alprazolam, muscle relaxants or sleep aids. Never sell or share prescription opioids. This is illegal. Store opioids in a secure place and out of reach of others (including children, family, friends and visitors). The last page(s) of this document has been signed and retained as a CHART COPY Signatures Patient Education Materials Shoulder Sprain Medication Leaflets My discharge plan and instructions have been reviewed and explained to me and IDENNIS VERNON understand my current condition and have read and understand these discharge instructions. I have received a written copy of the plan/instructions. If I have questions, I am aware that I should contact my doctor. 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 HISTORY: ORDERING SYSTEM PROVIDED HISTORY: Reason for Exam: fall FINDINGS: No acute fracture or dislocation. The humeral head is appropriately seated within the glenoid. The acromioclavicular and coracoclavicular distances are maintained. The included thoracic structures are unremarkable. IMPRESSION: No acute radiographic findings. Interpreted by: Hossein Dominguez Preliminary Report By: Hossein Dominguez Electronically signed By Hossein Dominguez Dictated Date: 05/21/2025 11:32:08 AM Prelim Date: 05/21/2025 11:33:43 AM Sign Date: 05/21/2025 11:33:43 AM [facility]ing [facility] NoteHNO ID: [id number] Author: DESEAN ABEL MD Service: ? Author Type: Physician Type: Progress Notes Filed: 12/18/2024 22:33 Note Text: Desean Abel MD Department of Orthopaedics Orthopaedics [address] [facility] [address] Dept: [phone] Dept November 21, 2024 CHIEF COMPLAINT: Post Op of the Right Ring Finger (4 weeks 4 days post op Right ring trigger finger release, and Right ring finger palmar fasciectomy). HPI Patient here for post op visit. Patient states he returned to work last week. His employer does have him on light duty. He has a sharp that is intermittent in his finger. Taking Ibuprofen for the pain that does not help. ASSESSMENT: M65.341 Trigger ring finger of right hand (primary encounter diagnosis) M72.0 Dupuytren's contracture of right hand SUMMARY/PLAN: Hand is looking well. Appropriate post-op. Exam: Healing well. Good ROM. Supporting Information Below: Medications: Current Outpatient Medications Medication Sig atorvastatin (LIPITOR) 40 mg tablet Take 1 tablet by mouth once daily. dulaglutide (TRULICITY) 3 mg/0.5 mL pen injector Inject 3 mg subcutaneously one time a week. pantoprazole DR (PROTONIX) 40 mg tablet Take 1 tablet by mouth once daily. ascorbic acid (VITAMIN C ORAL) Take by mouth. Cholecalciferol, Vitamin D3, 50 mcg (2,000 unit) cap Take 1 capsule by mouth once daily. aspirin 325 mg tablet Take 975 mg by mouth one time only. (Patient not taking: Reported on 10/31/2024) blood sugar diagnostic (BLOOD GLUCOSE TEST) test strip Test blood sugar(s) 2 times daily. Dx: Type 2 DM - Uncontrolled E11.65 Insulin: No ZINC ORAL Take by mouth. (Patient not taking: Reported on 10/31/2024) No current facility-administered medications for this visit. Allergies: Aleve [Naproxen Sodium] Desean Abel [facility]02-17-2025 History of Present illness Narrative* Desean Abel MD - 11/21/2024 3:34 PM EST Desean Abel MD Department of Orthopaedics Orthopaedics [address] [facility] [address] Dept: [phone] Dept November 21, 2024 CHIEF COMPLAINT: Post Op of the Right Ring Finger (4 weeks 4 days post op Right ring trigger fingerrelease, and Right ring finger palmar fasciectomy). HPI Patient here for post op visit. Patient states he returned to work last week. His employer does have him on light duty. He has a sharp that is intermittent in his finger. Taking Ibuprofen for the pain that does not help. ASSESSMENT: M65.341 Trigger ring finger of right hand (primary encounter diagnosis) M72.0 Dupuytren's contracture of right hand SUMMARY/PLAN: Hand is looking well. Appropriate post-op. Exam: Healing well. Good ROM. Supporting Information Below: Medications: Current Outpatient Medications Medication Sig atorvastatin (LIPITOR) 40 mg tablet Take 1 tablet by mouth once daily. dulaglutide (TRULICITY) 3 mg/0.5 mL pen injector Inject 3 mg subcutaneously one time a week. pantoprazole DR (PROTONIX) 40 mg tablet Take 1 tablet by mouth once daily. ascorbic acid (VITAMIN C ORAL) Take by mouth. Cholecalciferol, Vitamin D3, 50 mcg (2,000 unit) cap Take 1 capsule by mouth once daily. aspirin 325 mg tablet Take 975 mg by mouth one time only. (Patient not taking: Reported on 10/31/2024) blood sugar diagnostic (BLOOD GLUCOSE TEST) test strip Test blood sugar(s) 2 times daily. Dx: Type 2 DM - Uncontrolled E11.65 Insulin: No ZINC ORAL Take by mouth. (Patient not taking: Reported on 10/31/2024) No current facility-administered medications for this visit. Allergies: Aleve [Naproxen Sodium] Desean Abel MD [facility] NoteHNO ID: [id number] Author: CLARE SCHERER PA-C Service: ? Author Type: Physician Terrazzo Journeyman Type: Progress Notes Filed: 10/31/2024 15:38 Note Text: Clare Scherer PA-C Department of Orthopaedics Orthopaedics [address] [facility] [address] Dept: [phone] Dept October 31, 2024 CHIEF COMPLAINT: Post Op of the Right Ring Finger (1 week 4 days post op Right ring trigger finger release and Right ring palmar fasciectomy). ASSESSMENT: M65.341 Trigger ring finger of right hand (primary encounter diagnosis) M72.0 Dupuytren's contracture of right hand SUMMARY/PLAN: Patient presents 1 week 4 days post op Right ring trigger finger release and Right ring palmar fasciectomy. He complains of a 6 out of 10 tightness across the palm. He has been applying hydrogen peroxide to the wound daily and has been keeping it wrapped with sports tape. He has not been elevating. Asked him to stop applying hydrogen peroxide to the wound, normal handwashing with soap and water and light lotion is appropriate. Encouraged him to start elevation and start working on some gentle scar massage. Will see him back in 1 month as planned. Exam: Incision site is well approximated without erythema or drainage. Mild but appropriate edema without ecchymosis. No locking or catching of the digits. Neurologically intact. Imaging: Deferred today Mr. Efrain Hamm was advised as to contrast therapies and/or to take analgesics/anti-inflammatories as needed and all contraindications were reviewed. Supporting Information Below: Medications: Current Outpatient Medications Medication Sig atorvastatin (LIPITOR) 40 mg tablet Take 1 tablet by mouth once daily. dulaglutide (TRULICITY) 3 mg/0.5 mL pen injector Inject 3 mg subcutaneously one time a week. pantoprazole DR (PROTONIX) 40 mg tablet Take 1 tablet by mouth once daily. blood sugar diagnostic (BLOOD GLUCOSE TEST) test strip Test blood sugar(s) 2 times daily. Dx: Type 2 DM - Uncontrolled E11.65 Insulin: No ascorbic acid (VITAMIN C ORAL) Take by mouth. Cholecalciferol, Vitamin D3, 50 mcg (2,000 unit) cap Take 1 capsule by mouth once daily. aspirin 325 mg tablet Take 975 mg by mouth one time only. (Patient not taking: Reported on 10/31/2024) Diclofenac Sodium 3 % gel Apply 0.5 g to affected area two times a day. Right hand (Patient not taking: Reported on 10/31/2024) ZINC ORAL Take by mouth. (Patient not taking: Reported on 10/31/2024) No current facility-administered medications for this visit. Allergies: Aleve [Naproxen Sodium] This note was partially generated using [employer] voice recognition system, and there may be some incorrect words, spellings, and punctuation that were not noted in checking the note before saving. [facility] History of Present illness Narrative* Clare Scherer PA-C - 10/31/2024 3:28 PM EST Clare Scherer PA-C Department of Orthopaedics Orthopaedics [address] [facility] [address] Dept: [phone] Dept October 31, 2024 CHIEF COMPLAINT: Post Op of the Right Ring Finger (1 week 4 days post op Right ring trigger finger release and Right ring palmar fasciectomy). ASSESSMENT: M65.341 Trigger ring finger of right hand (primary encounter diagnosis) M72.0 Dupuytren's contracture of right hand SUMMARY/PLAN: Patient presents 1 week 4 days post op Right ring trigger finger release and Right ring palmar fasciectomy. He complains of a 6 out of 10 tightness across the palm. He has been applying hydrogen peroxide to the wound daily and has been keeping it wrapped with sports tape. He has not been elevating. Asked him to stop applying hydrogen peroxide to the wound, normal handwashing with soap and waterand light lotion is appropriate. Encouraged him to start elevation and start working on some gentlescar massage. Will see him back in 1 month as planned. Exam: Incision site is well approximated without erythema or drainage. Mild but appropriate edema withoutecchymosis. No locking or catching of the digits. Neurologically intact. Imaging: Deferred today Mr. Efrain Hamm was advised as to contrast therapies and/or to take analgesics/anti-inflammatories as needed and all contraindications were reviewed. Supporting Information Below: Medications: Current Outpatient Medications Medication Sig atorvastatin (LIPITOR) 40 mg tablet Take 1 tablet by mouth once daily. dulaglutide (TRULICITY) 3 mg/0.5 mL pen injector Inject 3 mg subcutaneously one time a week. pantoprazole DR (PROTONIX) 40 mg tablet Take 1 tablet by mouth once daily. blood sugar diagnostic (BLOOD GLUCOSE TEST) test strip Test blood sugar(s) 2 times daily. Dx: Type 2 DM - Uncontrolled E11.65 Insulin: No ascorbic acid (VITAMIN C ORAL) Take by mouth. Cholecalciferol, Vitamin D3, 50 mcg (2,000 unit) cap Take 1 capsule by mouth once daily. aspirin 325 mg tablet Take 975 mg by mouth one time only. (Patient not taking: Reported on 10/31/2024) Diclofenac Sodium 3 % gel Apply 0.5 g to affected area two times a day. Right hand (Patient not taking: Reported on 10/31/2024) ZINC ORAL Take by mouth. (Patient not taking: Reported on 10/31/2024) No current facility-administered medications for this visit. Allergies: Aleve [Naproxen Sodium] This note was partially generated using [employer] voice recognition system, and there may be some incorrect words, spellings, and punctuation that were not noted in checking the note before saving. Clare Scherer PA-C * Treasure Kim MA - 10/31/2024 3:00 PM EST Patient presents with: Right Ring Finger - Post Op: 1 week 4 days post op Right ring trigger finger release and Right ringpalmar fasciectomy AMB ROOMING INTAKE FLOWSHEET DATA Pain Pain Level: 6 Pain Location: (Right ring finger) Description: Aching Duration Amount of Time: (Post op) Frequency: Continuous Intervention/Comfort measure: (None) Sutures intact. No redness or drainage. Patient states he does have some pain in his finger when hemoves it. Patient has cleaned the incision a couple of times with Peroxide. Taking no med's for thepain. documented in this encounterOur [facility] NoteHNO ID: [id number] Author: TREASURE KIM MA Service: ? Author Type: Fire Inspector Type: Progress Notes Filed: 10/31/2024 15:38 Note Text: Patient presents with: Right Ring Finger - Post Op: 1 week 4 days post op Right ring trigger finger release and Right ring palmar fasciectomy AMB ROOMING INTAKE FLOWSHEET DATA Pain Pain Level: 6 Pain Location: (Right ring finger) Description: Aching Duration Amount of Time: (Post op) Frequency: Continuous Intervention/Comfort measure: (None) Sutures intact. No redness or drainage. Patient states he does have some pain in his finger when he moves it. Patient has cleaned the incision a couple of times with Peroxide. Taking no med's for the pain.[facility] Telephone encounter Note* Telephone Encounter - Treasure Kim MA - 09/21/2024 3:16 PM EST Surgery scheduled as requested [facility]12-18-2024 Miscellaneous Notes* Telephone Encounter - Treasure Kim MA - 09/21/2024 3:16 PM EST Surgery scheduled as requested * Telephone Encounter - Treasure Kim MA - 09/20/2024 9:26 AM EST Surgical request completed. Post op appointments scheduled and mailed to the patient. * Telephone Encounter - Treasure Kim MA - 09/15/2024 1:11 PM EST Patient scheduled for Right ring trigger finger release and Right ring finger palmar fasciectomy on10/20/24. documented in this encounterOur [facility]12-17-2024 Telephone encounter Note * Telephone Encounter - Treasure Kim MA - 09/20/2024 9:26 AM EST Surgical request completed. Post op appointments scheduled and mailed to the patient. [facility]12-12-[facility] Telephone encounter Note* Telephone Encounter - Treasure Kim MA - 09/15/2024 1:11 PM EST Patient scheduled for Right ring trigger finger release and Right ring finger palmar fasciectomy on10/20/24. [facility]12-09-2024 NoteHNO ID: [id number] Author: DESEAN ABEL MD Service: ? Author Type: Physician Type: Progress Notes Filed: 09/12/2024 09:16 Note Text: Desean Abel MD Department of Orthopaedics Orthopaedics [address] [facility] [address] Dept: [phone] Dept September 12, 2024 CHIEF COMPLAINT: New and Musculoskeletal Problem of the Right Hand HPI Patient here with complaints of right ring finger locking and pain in the palm x 1 month. Difficulty making a fist. He is right hand dominant. 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 ASSESSMENT: M65.341 Trigger ring finger of right hand (primary encounter diagnosis) M72.0 Dupuytren's disease of palm PLAN: Patient has both things going on with a moderately severe tendinitis in the digit resulting in a trigger finger but also a mild Dupuytren's nodule without contracture. I had a lengthy discussion with both of these topics with him and the treatment options for each. The risks, benefits, alternatives and potential complications on operative and nonoperative treatment were reviewed. He would like to pursue surgery for his finger tendinitis and at the same setting I will remove his Dupuytren's nodule as it is through the same incision. We have made the decision to move forward with a major orthopaedic surgery today, and this represents the moderate form of medical decision-making complexity. The patient's diagnosis of Trigger ring finger of right hand (primary encounter diagnosis) Dupuytren's disease of palm represents a chronic pathology/diagnosis/injury that represents a current or possible direct threat to bodily function. FOLLOW UP INSTRUCTIONS: Will get him scheduled at his convenience OBJECTIVE: Mr. Efrain Hamm is a pleasant 53 year old in no apparent distress. Gen:There were no vitals taken for this visit. nl development, non obese, no deformities ENT: Normocephalic, normal hearing, moist mucosa CV: Pulses:Radial= 2+ and symmetric, capillary refill < 2 secs, no peripheral edema/varicosities Skin: no rash, bruising or lesions. Good turgor. Psych: cooperative and appropriate, alert and oriented x 3, good mood and affect. Musculoskeletal: Tender to palpation over the A1 paddy of the middle finger on the right, and just proximal to this he has a Dupuytren's nodule without a palpable cord and no contracture. Active locking and catching of the digit in question. Neurovascular exam intact. IMAGING: Impression IMPRESSION: Mild osteoarthrosis Nc Manager: RIDDHI Transcribe Date/Time: Aug 20 2024 8:01A Dictated by : RIVER ROUSE MD This examination was interpreted and the report reviewed and electronically signed by: RIVER ROUSE MD on Aug 20 2024 8:02AM EST Results-Findings * * *Final Report* * * DATE OF EXAM: Aug 15 2024 4:23PM WOX [id number] - XR HAND 3V PA/LAT/OBL RT / PROCEDURE REASON: Dupuytren contracture of right hand * * * * Physician Interpretation * * * * PROCEDURE: Right hand INDICATION: Dupuytren contracture of right hand .Painful contracture of ring finger of right hand x2 months. TECHNIQUE: XR HAND 3V PA/LAT/OBL RT COMPARISON: None FINDINGS: No acute fracture or dislocation. Joint spaces throughout the hand are maintained. 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 Minimal osteoarthritic spurring at all DIP joints. No erosion or focal soft tissue swelling. Supporting Subjective Information Below: Past Medical History: PAST MEDICAL HISTORY Diagnosis Date CAP (community acquired pneumonia) 02/06/2022 bibasilar opacities R>L suggesting infiltrate or atelectasis. Treated with Levaquin 500mg x 10 d with resolution Obese body habitus Past Surgical History: No past surgical history on file. Family History: FAMILY HISTORY Problem Relation Age of Onset Diabetes Father Social History: Social History Tobacco Use Smoking status: Every Day Current packs/day: 1.00 Average packs/day: 1 pack/day for 30.0 years (30.0 ttl pk-yrs) Types: Cigarettes Smokeless tobacco: Never Tobacco comments: 1-2 ppd. Wants to quit Vaping Use Vaping status: Never Used Substance Use Topics Alcohol use: Not Currently Drug use: Never Medications: Current Outpatient Medications Medication Sig atorvastatin (LIPITOR) 40 mg tablet Take 1 tablet by mouth once daily. dulaglutide (TRULICITY) 3 mg/0.5 mL pen injector Inject 3 mg subcutaneously one time a week. ZINC ORAL Take by mouth. Cholecalciferol, Vitamin D3, 50 mcg (2,000 unit) cap Take 1 capsule by mouth once daily. pantoprazole DR (PROTONIX) 40 mg tablet Take 1 tablet by mouth once daily. (Patient not taking: Reported on 09/12/2024) Diclofenac Sodium 3 % gel Apply 0.5 g to affected area two times a day. Right hand (Patient not taking: Reported on 09/12/2024) blood sugar diagnostic (BLOOD GLUCOSE TEST) test strip Test blood sugar(s) 2 times da (more content not included)...[facility]12-[facility] History of Present illness Narrative* Desean Abel MD - 09/12/2024 8:12 AM EST Desean Abel MD Department of Orthopaedics Orthopaedics [address] [place] [address] Dept: [phone] Dept September 12, 2024 CHIEF COMPLAINT: New and Musculoskeletal Problem of the Right Hand HPI Patient here with complaints of right ring finger locking and pain in the palm x 1 month. Difficulty making a fist. He is right hand dominant. 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 ASSESSMENT: M65.341 Trigger ring finger of right hand (primary encounter diagnosis) M72.0 Dupuytren's disease of palm PLAN: Patient has both things going on with a moderately severe tendinitis in the digit resulting in a trigger finger but also a mild Dupuytren's nodule without contracture. I had a lengthy discussion withboth of these topics with him and the treatment options for each. The risks, benefits, alternativesand potential complications on operative and nonoperative treatment were reviewed. He would like topursue surgery for his finger tendinitis and at the same setting I will remove his Dupuytren's nodule as it is through the same incision. We have made the decision to move forward with a major orthopaedic surgery today, and this represents the moderate form of medical decision-making complexity. The patient's diagnosis of Trigger ring finger of right hand (primary encounter diagnosis) Dupuytren's disease of palm represents a chronic pathology/diagnosis/injury that represents a current or possible direct threat to bodily function. FOLLOW UP INSTRUCTIONS: Will get him scheduled at his convenience OBJECTIVE: Mr. Efrain Hamm is a pleasant 53 year old in no apparent distress. Gen:There were no vitals taken for this visit. nl development, non obese, no deformities ENT: Normocephalic, normal hearing, moist mucosa CV: Pulses:Radial= 2+ and symmetric, capillary refill < 2 secs, no peripheral edema/varicosities Skin: no rash, bruising or lesions. Good turgor. Psych: cooperative and appropriate, alert and oriented x 3, good mood and affect. Musculoskeletal: Tender to palpation over the A1 paddy of the middle finger on the right, and just proximal to thishe has a Dupuytren's nodule without a palpable cord and no contracture. Active locking and catchingof the digit in question. Neurovascular exam intact. IMAGING: Impression IMPRESSION: Mild osteoarthrosis Nc Manager: RIDDHI Transcribe Date/Time: Aug 20 2024 8:01A Dictated by : RIVER ROUSE MD This examination was interpreted and the report reviewed and electronically signed by: RIVER ROUSE MD on Aug 20 2024 8:02AM EST Results-Findings * * *Final Report* * * DATE OF EXAM: Aug 15 2024 4:23PM WOX [id number] - XR HAND 3V PA/LAT/OBL RT / PROCEDURE REASON: Dupuytren contracture of right hand * * * * Physician Interpretation * * * * PROCEDURE: Right hand INDICATION: Dupuytren contracture of right hand .Painful contracture of ring finger of right hand x2 months. TECHNIQUE: XR HAND 3V PA/LAT/OBL RT COMPARISON: None FINDINGS: No acute fracture or dislocation. Joint spaces throughout the hand are maintained. 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 Minimal osteoarthritic spurring at all DIP joints. No erosion or focal soft tissue swelling. Supporting Subjective Information Below: Past Medical History: PAST MEDICAL HISTORY Diagnosis Date CAP (community acquired pneumonia) 02/06/2022 bibasilar opacities R>L suggesting infiltrate or atelectasis. Treated with Levaquin 500mg x 10 dwith resolution Obese body habitus Past Surgical History: No past surgical history on file. Family History: FAMILY HISTORY Problem Relation Age of Onset Diabetes Father Social History: Social History Tobacco Use Smoking status: Every Day Current packs/day: 1.00 Average packs/day: 1 pack/day for 30.0 years (30.0 ttl pk-yrs) Types: Cigarettes Smokeless tobacco: Never Tobacco comments: 1-2 ppd. Wants to quit Vaping Use Vaping status: Never Used Substance Use Topics Alcohol use: Not Currently Drug use: Never Medications: Current Outpatient Medications Medication Sig atorvastatin (LIPITOR) 40 mg tablet Take 1 tablet by mouth once daily. dulaglutide (TRULICITY) 3 mg/0.5 mL pen injector Inject 3 mg subcutaneously one time a week. ZINC ORAL Take by mouth. Cholecalciferol, Vitamin D3, 50 mcg (2,000 unit) cap Take 1 capsule by mouth once daily. pantoprazole DR (PROTONIX) 40 mg tablet Take 1 tablet by mouth once daily. (Patient not taking: Reported on 09/12/2024) Diclofenac Sodium 3 % gel Apply 0.5 g to affected area two times a day. Right hand (Patient not taking: Reported on 09/12/2024) blood sugar diagnostic (BLOOD GLUCOSE TEST) test strip Test blood sugar(s) 2 times daily. Dx: Type 2 DM - Uncontrolled E11.65 Insulin: No ascorbic acid (VITAMIN C ORAL) Take by mouth. No current facility-administered medications for this visit. Allergies: Aleve [Naproxen Sodium] ROS: General (negative for fatigue, malaise, weight loss/gain) HEENT (negative for headache, earache, recent vision changes, sinus pain, sore throat) Respiratory (no recent shortness of breath, hemoptysis) CV (negative for chest tightness, palpitations) Musculoskeletal (see HPI) Psych (no depression, anxiety) REFERRING PHYSICIAN: Consultation requested by Candy Martinez CNP for an opinion regarding finger pain. My final recommendations will be communicated back to the requesting physician by way of shared Medical record orletter to requesting physician via US mail. Kaela Martinez [address] [facility] [place] [address] Desean Abel MD documented in this encounterOur [facility] Telephone encounter Note * Telephone Encounter - Kaela Ramirez LPN - 08/23/2024 10:40 AM EST Faxed to Aide[facility]-2024 Miscellaneous Notes* Telephone Encounter - Kaela Ramirez LPN - 08/23/2024 10:40 AM EST Faxed to [facility] * Telephone Encounter - Heydi Dutta - 08/23/2024 10:31 AM EST Pt would like derm consult faxed to [facility]. Thank you documented in this encounterOur [facility]24 Telephone encounter Note * Telephone Encounter - Heydi Dutta - 08/23/2024 10:31 AM EST Pt would like derm consult faxed to [facility]. Thank you [facility]-19-[facility]24 Telephone encounter Note* Telephone Encounter - June Banerjee RN - 08/23/2024 10:23 AM EST Pt called and is notified of providers results and instructions. Pt voices understanding. Transferred to scheduled to set up appt with Podiatry and Dermatology. June Banerjee RN [facility]11-19-2024 Miscellaneous Notes* Telephone Encounter - June Banerjee RN - 08/23/2024 10:23 AM EST Pt called and is notified of providers results and instructions. Pt voices understanding. Transferred to scheduled to set up appt with Podiatry and Dermatology. June Banerjee RN * Telephone Encounter - Kaela Ramirez LPN - 08/23/2024 9:11 AM EST Left message to return call * Telephone Encounter - Loretta Jc LPN - 08/22/2024 7:04 PM EST ----- Message from Kaela Martinez sent at 08/22/2024 6:12 PM EST ----- Please let patient know that x-ray shows mild osteoarthritis of the hands. The orthopedic doctor will review the x-rays when he sees you for your Dupuytren's contracture. documented in this encounterOur [facility] Telephone encounter Note * Telephone Encounter - Kaela Ramirez LPN - 08/23/2024 9:11 AM EST Left message to return call [facility] Telephone encounter Note* Telephone Encounter - Loretta Jc LPN - 08/22/2024 7:04 PM EST ----- Message from Kaela Martinez sent at 08/22/2024 6:12 PM EST ----- Please let patient know that x-ray shows mild osteoarthritis of the hands. The orthopedic doctor will review the x-rays when he sees you for your Dupuytren's contracture. [facility]-12-[facility] Telephone encounter Note* Telephone Encounter - Deyanira Hancock LPN - 08/16/2024 1:58 PM EST Pt notified of results and provider message. Deyanira Hancock LPN [facility]-12-2024 Miscellaneous Notes* Telephone Encounter - Deyanira Hancock LPN - 08/16/2024 1:58 PM EST Pt notified of results and provider message. Deyanira Hancock LPN * Telephone Encounter - Estrella Vidal MA - 08/16/2024 1:36 PM EST Left message for patient to return call. Estrella Vidal Ma * Telephone Encounter - Kaela Martinez APRN.OFFICE SUPPORT SPECIALIST - 08/16/2024 11:13 AM EST Please let pt. Know that his blood sugar continues to improve. HgA1c now 7.2%. Improved. LDL, bad cholesterol, is worrisome high for a diabetic. Please take his atorvastatin every day. It will reduce his cardiovascular risk Hep C screen was negative Thyroid, magnesium, B12, Blood count, kidney & liver function all normal. documented in this encounterOur Lady [facility]11-12-2024 Telephone encounter Note * Telephone Encounter - Estrella Vidal MA - 08/16/2024 1:36 PM EST Left message for patient to return call. Estrella Vidal Ma [facility] Telephone encounter Note* Telephone Encounter - Raisa Jones LPN - 08/16/2024 11:41 AM EST Pharmacy notified. [facility]-12[facility]24 Miscellaneous Notes* Telephone Encounter - Raisa Jones LPN - 08/16/2024 11:41 AM EST Pharmacy notified. * Telephone Encounter - Raisa Jones LPN - 08/16/2024 11:38 AM EST Images from the original note were not included. Electronic PA rec'd and completed for diclofenac gel. Prior authorization approved Payer: Vladimir Note from payer: CHARBEL Case: [id number], Status: Approved, Coverage Starts on: 08/16/2024 12:00:00 AM, Coverage Ends on: 11/14/2024 12:00:00 AM. Approval Details Authorization number: [id number] Authorized from August 16, 2024 to November 14, 2024 Electronic appeal: Not supported View History Notes Time User Attachment Attachment received from payer. 08/16/2024 11:29 AM Cchs, Rx Priorauth In Document Pharmacy Benefits Open Encounter [facility]IN HAMM F - INGEN BB CDH-N [id number] ([facility]) Covered: Retail, Mail Order, Specialty Unknown: Long-Term Care BIN: [id number] : 1970 Group ID: [id number] PCN: [id number] Legal sex: M Group name: [facility] [employer] Address: [address] [place] [address] Medication Being Authorized Diclofenac Sodium 3 % gel Apply 0.5 g to affected area two times a day. Right hand Dispense: 30 g Refills: 2 Start: 08/15/2024 End: 11/13/2024 Class: Normal Diagnoses: Dupuytren contracture of right hand This order has been released to its destination. To be filled at: [facility] [id number] - [place] [address] [address] - [phone] documented in this encounterOur [facility]11-[facility] Telephone encounter Note * Telephone Encounter - Raisa Jones LPN - 08/16/2024 11:38 AM EST Images from the original note were not included. Electronic PA rec'd and completed for diclofenac gel. Prior authorization approved Payer: Vladimir Note from payer: CHARBEL Case: [id number], Status: Approved, Coverage Starts on: 08/16/2024 12:00:00 AM, Coverage Ends on: 11/14/2024 12:00:00 AM. Approval Details Authorization number: [id number] Authorized from August 16, 2024 to November 14, 2024 Electronic appeal: Not supported View History Notes Time User Attachment Attachment received from payer. 08/16/2024 11:29 AM Cchs, Rx Priorauth In Document Pharmacy Benefits Open Encounter EFRAIN HAMM INGEN BB CDH-N [id number] ([facility]) Covered: Retail, Mail Order, Specialty Unknown: Long-Term Care BIN: [id number] : 1970 Group ID: [id number] PCN: [id number] Legal sex: M Group name: [facility] [employer] Address: [address] [place] [address] Medication Being Authorized Diclofenac Sodium 3 % gel Apply 0.5 g to affected area two times a day. Right hand Dispense: 30 g Refills: 2 Start: 08/15/2024 End: 11/13/2024 Class: Normal Diagnoses: Dupuytren contracture of right hand This order has been released to its destination. To be filled at: [facility] [address] [place] [address] [address] [facility] - [phone] [facility]11-12-2024 Telephone encounter Note* Telephone Encounter - Kaela Martinez APRN.CNP - 08/16/2024 11:13 AM EST Please let pt. Know that his blood sugar continues to improve. HgA1c now 7.2%. Improved. LDL, bad cholesterol, is worrisome high for a diabetic. Please take his atorvastatin every day. It will reduce his cardiovascular risk Hep C screen was negative Thyroid, magnesium, B12, Blood count, kidney & liver function all normal. [facility]11-11-2024 History of Present illness Narrative* Sarah Patterson RT(R) - 08/15/2024 4:20 PM EST Radiology Service Progress Note PATIENT NAME: Efrain Hamm DATE OF SERVICE: August 15, 2024 TIME: 4:15 PM PATIENT IDENTITY VERIFICATION COMPLETED USING TWO (2) IDENTIFIERS: Name and Date of confirmedby patient verbally. FALL SCREENING: Has the patient had 2 falls in the last year or 1 fall with injury or currently using an Ambulatory Assistive Device (Walker, Cane, Wheelchair, Crutches, etc.)? No PATIENT GENDER DATA: Male PATIENT RELEVANT IMPLANT DATA REVIEWED: Yes PATIENT PRESENTS WITH AN IMPLANTABLE OR ATTACHED GAS USAGE METER CLERK: No RADIOLOGY DEPARTMENT: General X-ray: Exam(s) Completed: Upper Extremity X- Ray(s): Hand, right PERIPHERAL IV DATA: Not applicable SIGNED BY: RT Mayelin(Edgard) August 15, 2024 4:15 PM documented in this encounterOur Lady Of [facility]11-[facility]-2024 NoteHNO ID: [id number] Author: SARAH PATTERSON RT(R) Service: ? Author Type: Clinical Pharmacy Coordinator Type: Progress Notes Filed: 08/15/2024 16:22 Note Text: Radiology Service Progress Note PATIENT NAME: Efrain Hamm DATE OF SERVICE: August 15, 2024 TIME: 4:15 PM PATIENT IDENTITY VERIFICATION COMPLETED USING TWO (2) IDENTIFIERS: Name and Date of confirmed by patient verbally. FALL SCREENING: Has the patient had 2 falls in the last year or 1 fall with injury or currently using an Ambulatory Assistive Device (Walker, Cane, Wheelchair, Crutches, etc.)? No PATIENT GENDER DATA: Male PATIENT RELEVANT IMPLANT DATA REVIEWED: Yes PATIENT PRESENTS WITH AN IMPLANTABLE OR ATTACHED GAS USAGE METER CLERK: No RADIOLOGY DEPARTMENT: General X-ray: Exam(s) Completed: Upper Extremity X-Ray(s): Hand, right PERIPHERAL IV DATA: Not applicable SIGNED BY: RT Mayelin(Edgard) August 15, 2024 4:15 [facility]11-11-2024 Instructions* Patient Instructions* Kaela Martinez APRN.OFFICE SUPPORT SPECIALIST - 08/15/2024 3:49 PM EST 1) Check labs today 2) Consult podiatry 3) Consult dermatology 4) Diclofenac gel 2 x day to right hand 5) Consult orthopedics for hands 6) Xray today 7) Follow up in 6 months documented in this encounterOur Lady [facility]11-11-2024 NoteHNO ID: [id number] Author: KAELA MARTINEZ APRN.CNP Service: ? Author Type: Clinical Nurse Specialist Type: Progress Notes Filed: 08/15/2024 15:51 Note Text: This is a 53 year old male who presents today with: Patient presents with: 6 Month Exam HISTORY OF PRESENT ILLNESS: Efrain Hamm is a 53 year old male. 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 He pulled it open and had severe burning pain in palm of hand. Ring finger with Dupuytren's contracture on right. PAST MEDICAL HISTORY: PAST MEDICAL HISTORY Diagnosis Date CAP (community acquired pneumonia) 02/06/2022 bibasilar opacities R>L suggesting infiltrate or atelectasis. Treated with Levaquin 500mg x 10 d with resolution Obese body habitus No past surgical history on file. ALLERGIES Aleve [Naproxen Sodium] MEDICATIONS Current Outpatient Medications Medication Sig dulaglutide (TRULICITY) 3 mg/0.5 mL pen injector Inject 3 mg subcutaneously one time a week. pantoprazole DR (PROTONIX) 40 mg tablet Take 1 tablet by mouth once daily. atorvastatin (LIPITOR) 40 mg tablet Take 1 tablet by mouth once daily. ascorbic acid (VITAMIN C ORAL) Take by mouth. ZINC ORAL Take by mouth. Cholecalciferol, Vitamin D3, 50 mcg (2,000 unit) cap Take 1 capsule by mouth once daily. blood sugar diagnostic (BLOOD GLUCOSE TEST) test strip Test blood sugar(s) 2 times daily. Dx: Type 2 DM - Uncontrolled E11.65 Insulin: No No current facility-administered medications for this visit. FAMILY HISTORY Problem Relation Age of Onset Diabetes Father Social History Tobacco Use Smoking status: Every Day Current packs/day: 1.00 Average packs/day: 1 pack/day for 30.0 years (30.0 ttl pk-yrs) Types: Cigarettes Smokeless tobacco: Never Tobacco comments: 1-2 ppd. Wants to quit Vaping Use Vaping status: Never Used Substance Use Topics Alcohol use: Not Currently Drug use: Never REVIEW OF SYSTEMS GENERAL: Some weight loss, no malaise or fevers/chills HEENT: Negative for frequent or significant headaches, No changes in hearing or vision. NECK: Negative for lumps, goiter, pain and significant neck swelling RESPIRATORY: Smokers cough, + hemoptysis, no wheezing, no dyspnea or shortness of breath CARDIOVASCULAR: Negative for chest pain, leg swelling, orthopnea, or palpitations GI: No nausea, vomiting, or diarrhea/constipation. No hematochezia/melena. + episodes of frequent heartburn or reflux symptoms. : No history of dysuria, + frequency, no incontinence MUSCULOSKELETAL: Negative for joint pain or swelling except right hand. SKIN: Skin lesions on nose and left forearm- pharmacy didn't have 5 FU cream so discontinued, no rash, and itching ENDOCRINE: Negative for cold or heat intolerance, polyuria, polydipsia and goiter NEURO: No history of headaches, syncope, paralysis, seizures or tremors MOOD: Negative for depression, anxiety, or suicidal ideation. Smokes 1- 1.5 ppd X 35 years EXAM: BP 142/80 Pulse 76 Resp 16 Wt 88.9 kg (196 lb) SpO2 95% BMI 29.16 kg/m? General Appearance: well appearing, alert and oriented. Skin: no suspicious lesion, no rash, no open sores Head: normocephalic, no obvious masses, lesions, tenderness or abnormalities. SKIN: bridge of nose with 2mm erosion, chow discoloration Neck: trachea midline, thyroid without mass or nodularity, thyroid moves normally with swallow, no regional lymphadenopathy. Carotids normal upstroke, no bruit or thrill. Back:no pain to palpation of vertebrae, no percussion tenderness over spine. Lungs: Chest rise AND fall symmetrical, Lungs clear to auscultation. No wheezing or rhonchi. No rales. Abdomen: normal bowel sounds, no mass, non-tender Heart: S1S2, no gallop, no rub, no murmur Lymph Nodes: no lymphadenopathy. Ext: no clubbing, cyanosis or edema. Mood: bright affect, speech clear, answers questions appropriately LABS: check labs ASSESSMENT/PLAN: 1. Dupuytren contracture of right hand - ICD9: 728.6, ICD10: M72.0 (primary diagnosis) Right hand- painful - XR HAND GENERAL 3V PA/LAT/OBL RIGHT - CONSULT PANEL TO ORTHOPAEDICS - DICLOFENAC 3 % TOPICAL GEL 2. Hyperlipidemia, mixed - ICD9: 272.2, ICD10: E78.2 - Control undetermined, due for labs - Counseled on healthy diet and regular exercise - ATORVASTATIN 40 MG TABLET - LIPID PANEL, NONFASTING 3. Uncontrolled type 2 diabetes mellitus with hyperglycemia (HCC) - ICD9: 250.02, ICD10: E11.65 - Control undetermined, due for labs - Continue current medications - DULAGLUTIDE 3 MG/0.5 ML SUBCUTANEOUS PEN INJECTOR - HEMOGLOBIN A1C - COMPREHENSIVE METABOLIC PANEL - VITAMIN B12 - MAGNESIUM - THYROID STIMULATING HORMONE - ALBUMIN/CREATININE RATIO, URINE 4. Gastroesophageal reflux disease without esophagitis - ICD9: 530.81, ICD10: K21.9 - renew pantoprazole - PANTOPRAZOLE 40 MG TABLET,DELAYED RELEASE - COMPLETE (more content not included)...[facility]11-11-2024 History of Present illness Narrative* Kaela Martinez APRN.OFFICE SUPPORT SPECIALIST - 08/15/2024 3:24 PM EST This is a 53 year old male who presents today with: Patient presents with: 6 Month Exam HISTORY OF PRESENT ILLNESS: Efrain Hamm is a 53 year old male. 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 He pulled it open and had severe burning pain in palm of hand. Ring finger with Dupuytren's contracture on right. PAST MEDICAL HISTORY: PAST MEDICAL HISTORY Diagnosis Date CAP (community acquired pneumonia) 02/06/2022 bibasilar opacities R>L suggesting infiltrate or atelectasis. Treated with Levaquin 500mg x 10 dwith resolution Obese body habitus No past surgical history on file. ALLERGIES Aleve [Naproxen Sodium] MEDICATIONS Current Outpatient Medications Medication Sig dulaglutide (TRULICITY) 3 mg/0.5 mL pen injector Inject 3 mg subcutaneously one time a week. pantoprazole DR (PROTONIX) 40 mg tablet Take 1 tablet by mouth once daily. atorvastatin (LIPITOR) 40 mg tablet Take 1 tablet by mouth once daily. ascorbic acid (VITAMIN C ORAL) Take by mouth. ZINC ORAL Take by mouth. Cholecalciferol, Vitamin D3, 50 mcg (2,000 unit) cap Take 1 capsule by mouth once daily. blood sugar diagnostic (BLOOD GLUCOSE TEST) test strip Test blood sugar(s) 2 times daily. Dx: Type 2 DM - Uncontrolled E11.65 Insulin: No No current facility-administered medications for this visit. FAMILY HISTORY Problem Relation Age of Onset Diabetes Father Social History Tobacco Use Smoking status: Every Day Current packs/day: 1.00 Average packs/day: 1 pack/day for 30.0 years (30.0 ttl pk-yrs) Types: Cigarettes Smokeless tobacco: Never Tobacco comments: 1-2 ppd. Wants to quit Vaping Use Vaping status: Never Used Substance Use Topics Alcohol use: Not Currently Drug use: Never REVIEW OF SYSTEMS GENERAL: Some weight loss, no malaise or fevers/chills HEENT: Negative for frequent or significant headaches, No changes in hearing or vision. NECK: Negative for lumps, goiter, pain and significant neck swelling RESPIRATORY: Smokers cough, + hemoptysis, no wheezing, no dyspnea or shortness of breath CARDIOVASCULAR: Negative for chest pain, leg swelling, orthopnea, or palpitations GI: No nausea, vomiting, or diarrhea/constipation. No hematochezia/melena. + episodes of frequent heartburn or reflux symptoms. : No history of dysuria, + frequency, no incontinence MUSCULOSKELETAL: Negative for joint pain or swelling except right hand. SKIN: Skin lesions on nose and left forearm- pharmacy didn't have 5 FU cream so discontinued, no rash, and itching ENDOCRINE: Negative for cold or heat intolerance, polyuria, polydipsia and goiter NEURO: No history of headaches, syncope, paralysis, seizures or tremors MOOD: Negative for depression, anxiety, or suicidal ideation. Smokes 1- 1.5 ppd X 35 years EXAM: BP 142/80 Pulse 76 Resp 16 Wt 88.9 kg (196 lb) SpO2 95% BMI 29.16 kg/m General Appearance: well appearing, alert and oriented. Skin: no suspicious lesion, no rash, no open sores Head: normocephalic, no obvious masses, lesions, tenderness or abnormalities. SKIN: bridge of nose with 2mm erosion, chow discoloration Neck: trachea midline, thyroid without mass or nodularity, thyroid moves normally with swallow, no regional lymphadenopathy. Carotids normal upstroke, no bruit or thrill. Back:no pain to palpation of vertebrae, no percussion tenderness over spine. Lungs: Chest rise & fall symmetrical, Lungs clear to auscultation. No wheezing or rhonchi. No rales. Abdomen: normal bowel sounds, no mass, non-tender Heart: S1S2, no gallop, no rub, no murmur Lymph Nodes: no lymphadenopathy. Ext: no clubbing, cyanosis or edema. Mood: bright affect, speech clear, answers questions appropriately LABS: check labs ASSESSMENT/PLAN: 1. Dupuytren contracture of right hand - ICD9: 728.6, ICD10: M72.0 (primary diagnosis) Right hand- painful - XR HAND GENERAL 3V PA/LAT/OBL RIGHT - CONSULT PANEL TO ORTHOPAEDICS - DICLOFENAC 3 % TOPICAL GEL 2. Hyperlipidemia, mixed - ICD9: 272.2, ICD10: E78.2 - Control undetermined, due for labs - Counseled on healthy diet and regular exercise - ATORVASTATIN 40 MG TABLET - LIPID PANEL, NONFASTING 3. Uncontrolled type 2 diabetes mellitus with hyperglycemia (HCC) - ICD9: 250.02, ICD10: E11.65 - Control undetermined, due for labs - Continue current medications - DULAGLUTIDE 3 MG/0.5 ML SUBCUTANEOUS PEN INJECTOR - HEMOGLOBIN A1C - COMPREHENSIVE METABOLIC PANEL - VITAMIN B12 - MAGNESIUM - THYROID STIMULATING HORMONE - ALBUMIN/CREATININE RATIO, URINE 4. Gastroesophageal reflux disease without esophagitis - ICD9: 530.81, ICD10: K21.9 - renew pantoprazole - PANTOPRAZOLE 40 MG TABLET,DELAYED RELEASE - COMPLETE BLOOD COUNT AND DIFFERENTIAL - COMPREHENSIVE METABOLIC PANEL 5. Neoplasm of uncertain behavior of skin of face - ICD9: 238.2, ICD10: D48.5 [facility] did not have 5-fu cream - CONSULT TO DERMATOLOGY 6. Special screening examination for viral disease - ICD9: V73.99, ICD10: Z11.59 Check labs - HEPATITIS C ANTIBODY IA WITH CONFIRMATION Discussed treatment plan and patient voices understanding. Patient's questions answered appropriately. Medications and potential side effects were discussed and patient voices understanding. Return to the office as scheduled or as needed for worsening/no improvement. Kaela Martinez APRN.CNP documented in this encounterOur [facility] Telephone encounter Note * Telephone Encounter - Emily Brunson LPN - 03/17/2024 1:02 PM EDT Phoned patient aware rx sent to pharmacy per PCP with understanding. [facility] Miscellaneous Notes* Telephone Encounter - Emily Brunson LPN - 03/17/2024 1:02 PM EDT Phoned patient aware rx sent to pharmacy per PCP with understanding. * Telephone Encounter - Brendon Arroyo PA-C - 03/17/2024 12:54 PM EDT The following approved medication requests have been transmitted electronically. Requested Prescriptions Signed Prescriptions Disp Refills dulaglutide (TRULICITY) 3 mg/0.5 mL pen injector 12 Each 1 Sig: Inject 3 mg subcutaneously one time a week. Authorizing Provider: Brendon ARROYO PA-C * Telephone Encounter - Angie Multani MA - 03/16/2024 2:10 PM EDT Called back and spoke with patient. He wants the 3 mg sent [facility]. Pended. Angie Multani MA * Telephone Encounter - Luciana Rocha - 03/16/2024 2:01 PM EDT Patient said he tried to refill his Trulicity rx at [facility] in [place] and was told there are no refills. Said he is supposed t be getting 4.5 mg, but has had to get the 3 mg because the pharmacy didn't have the 4.5 mg. Wants to know if we can check to see if the pharmacy has the 4.5 mg now. If not, please refill the 3 mg. He'd like a call back at [phone] to know what was sent and when it is sent. documented in this encounterOur [facility] Telephone encounter Note * Telephone Encounter - Brendon Arroyo PA-C - 03/17/2024 12:54 PM EDT The following approved medication requests have been transmitted electronically. Requested Prescriptions Signed Prescriptions Disp Refills dulaglutide (TRULICITY) 3 mg/0.5 mL pen injector 12 Each 1 Sig: Inject 3 mg subcutaneously one time a week. Authorizing Provider: Brendon ARROYO PA-C [facility] Telephone encounter Note* Telephone Encounter - Angie Multani MA - 03/16/2024 2:10 PM EDT Called back and spoke with patient. He wants the 3 mg sent [facility]. Pended. Angie Multani MA [facility] Telephone encounter Note* Telephone Encounter - Luciana Rocha - 03/16/2024 2:01 PM EDT Patient said he tried to refill his Trulicity rx at [facility] in [place] and was told there are no refills. Said he is supposed t be getting 4.5 mg, but has had to get the 3 mg because the pharmacy didn't have the 4.5 mg. Wants to know if we can check to see if the pharmacy has the 4.5 mg now. If not, please refill the 3 mg. He'd like a call back at [phone] to know what was sent and when it is sent. [facility]05-16-2024 Telephone encounter Note* Telephone Encounter - Kaela Ramirez LPN - 02/18/2024 9:23 AM EDT Patient notified. Verbalized understanding. [facility]05-16-2024 Miscellaneous Notes* Telephone Encounter - Kaela Ramirez LPN - 02/18/2024 9:23 AM EDT Patient notified. Verbalized understanding. * Telephone Encounter - Brendon Arroyo PA-C - 02/18/2024 7:49 AM EDT The following approved medication requests have been transmitted electronically. Requested Prescriptions Signed Prescriptions Disp Refills dulaglutide (TRULICITY) 3 mg/0.5 mL pen injector 12 Each 1 Sig: Inject 3 mg subcutaneously one time a week. Authorizing Provider: Brendon ARROYO PA-C * Telephone Encounter - Latrice Hobbs - 02/17/2024 3:10 PM EDT Efrain is calling Brendon Arroyo PA-C today with concern regarding Medication Problem. Efrain picked up his Trulicity and is asking why he only received 1 month's worth He states the cost for him is the same for one month or 3 months, so he would prefer 3 months. Patient has been identified by name and birthdate. Duration of symptoms: N/A Person calling: self Call patient at: at home [phone] (home) [phone] (cell) Was an appointment scheduled: No Closing statement: Latrice Pritchett documented in this encounterOur [facility] Telephone encounter Note * Telephone Encounter - Brendon Arroyo PA-C - 02/18/2024 7:49 AM EDT The following approved medication requests have been transmitted electronically. Requested Prescriptions Signed Prescriptions Disp Refills dulaglutide (TRULICITY) 3 mg/0.5 mL pen injector 12 Each 1 Sig: Inject 3 mg subcutaneously one time a week. Authorizing Provider: Brendon ARROYO PA-C [facility]05-15-2024 Telephone encounter Note* Telephone Encounter - Latrice Hobbs - 02/17/2024 3:10 PM EDT Efrain is calling Brendon Arroyo PA-C today with concern regarding Medication Problem. Efrain picked up his Trulicity and is asking why he only received 1 month's worth He states the cost for him is the same for one month or 3 months, so he would prefer 3 months. Patient has been identified by name and birthdate. Duration of symptoms: N/A Person calling: self Call patient at: at home [phone] (home) [phone] (cell) Was an appointment scheduled: No Closing statement: Latrice Pritchett [facility] Work Phone: 1(488) 858-816805-11-2024 Telephone encounter Note* Telephone Encounter - Estrella Vidal MA - 02/13/2024 8:48 AM EDT Patient notified of provider message and dosage change. Estrella Vidal MA February 13, 2024 8:48 AM [facility]05-11-2024 Miscellaneous Notes* Telephone Encounter - Estrella Vidal MA - 02/13/2024 8:48 AM EDT Patient notified of provider message and dosage change. Estrella Vidal MA February 13, 2024 8:48 AM * Telephone Encounter - Rohit Rogers MD - 02/13/2024 8:02 AM EDT Lets try and see if we can get lower dose. * Telephone Encounter - Olivia Tyler RN - 02/12/2024 4:11 PM EDT Patient calls to let provider know that he is not able to get the Trulicity 4.5 mg from [facility] and is completely out. Next dose would be due tomorrow morning 02/13/2024. Patient is leaving for [place] in the morning and returning Thursday02/15/2024. Patient asking what provider recommends since medication is on backorder. Asking if there is something else he could be switched to. Please review and advise, Olivia Tyler RN documented in this encounterOur [facility] Telephone encounter Note * Telephone Encounter - Rohit Rogers MD - 02/13/2024 8:02 AM EDT Lets try and see if we can get lower dose. [facility]05-10-2024 Telephone encounter Note* Telephone Encounter - Olivia Tyler RN - 02/12/2024 4:11 PM EDT Patient calls to let provider know that he is not able to get the Trulicity 4.5 mg from [facility] and is completely out. Next dose would be due tomorrow morning 02/13/2024. Patient is leaving for [place] in the morning and returning Thursday02/15/2024. Patient asking what provider recommends since medication is on backorder. Asking if there is something else he could be switched to. Please review and advise, Olivia Tyler RN [facility]05-10-2024 Telephone encounter Note* Telephone Encounter - Azzia Camacho RN - 02/12/2024 3:37 PM EDT Patient notified of results and provider's instructions. Patient verbalizes understanding. Patient states that he would like to follow up on labs in [address] labs so that he can have these done I 3 months. Aziza Camacho RN [facility]05-10-2024 Miscellaneous Notes* Telephone Encounter - Aziza Camacho RN - 02/12/2024 3:37 PM EDT Patient notified of results and provider's instructions. Patient verbalizes understanding. Patient states that he would like to follow up on labs in [address] labs so that he can have these done I 3 months. Aziza Camacho RN * Telephone Encounter - June Banerjee RN - 02/12/2024 1:31 PM EDT Called and left a voicemail for the Patient to call back and ask for a nurse to receive the providers message. June Banerjee RN * Telephone Encounter - Kaela Martinez APRN.CNS - 02/12/2024 9:03 AM EDT Please let patient know that his hemoglobin A1c was 8.1%. That means his diabetes is not controlled. We discussed at length dietary changes. If he would like to follow-up in 3 months to check on this, we can. His LDL cholesterol is 168. This places him at significant cardiovascular risk for stroke and heartattack. The dietary changes or to address LDL also and he is on a statin. Thyroid normal, magnesium normal, kidney function and blood counts are normal, no effect of diabetes on his kidneys. documented in this encounterOur [facility] [place] Telephone encounter Note * Telephone Encounter - June Banerjee RN - 02/12/2024 1:31 PM EDT Called and left a voicemail for the Patient to call back and ask for a nurse to receive the providers message. June Banerjee RN [facility]05-10-2024 Telephone encounter Note* Telephone Encounter - Kaela Martinez APRN.CNS - 02/12/2024 9:03 AM EDT Please let patient know that his hemoglobin A1c was 8.1%. That means his diabetes is not controlled. We discussed at length dietary changes. If he would like to follow-up in 3 months to check on this, we can. His LDL cholesterol is 168. This places him at significant cardiovascular risk for stroke and heartattack. The dietary changes or to address LDL also and he is on a statin. Thyroid normal, magnesium normal, kidney function and blood counts are normal, no effect of diabetes on his kidneys. [facility]05-09-2024 Instructions* Patient Instructions* Kaela Martinez APRN.CNS - 02/11/2024 4:34 PM EDT 1) Labs today 2) Medications renewed 3) 5-FU cream topically daily to nose for 28 days 4) Pantoprazole 40mg daily for GERD 5) Follow up in 6 months documented in this encounterOur [facility]24 NoteHNO ID: [id number] Author: KAELA MARTINEZ APRN.DAIRY BACTERIOLOGIST Service: ? Author Type: Clinical Nurse Specialist Type: Progress Notes Filed: 02/11/2024 16:40 Note Text: This is a 53 year old male who presents today with: Patient presents with: Follow Up HISTORY OF PRESENT ILLNESS: Efrain Hamm is a 53 year old male. Patient presents with: Follow Up Acne continues to persist on nose even with using the wipes. Hasn't healed in 2 months. Sore- feels like a sunburn. Getting heart burn really bad. Pepcid not helping. Wants to get off DM meds. Dietary changes. PAST MEDICAL HISTORY: PAST MEDICAL HISTORY Diagnosis Date CAP (community acquired pneumonia) 02/06/2022 bibasilar opacities R>L suggesting infiltrate or atelectasis. Treated with Levaquin 500mg x 10 d with resolution Obese body habitus No past surgical history on file. ALLERGIES Aleve [Naproxen Sodium] MEDICATIONS Current Outpatient Medications Medication Sig dulaglutide (TRULICITY) 4.5 mg/0.5 mL pen injector Inject 4.5 mg subcutaneously one time a week. atorvastatin (LIPITOR) 40 mg tablet Take 1 tablet by mouth daily at bedtime. For cholesterol. blood sugar diagnostic (BLOOD GLUCOSE TEST) test strip Test blood sugar(s) 2 times daily. Dx: Type 2 DM - Uncontrolled E11.65 Insulin: No ascorbic acid (VITAMIN C ORAL) Take by mouth. ZINC ORAL Take by mouth. Cholecalciferol, Vitamin D3, 50 mcg (2,000 unit) cap Take 1 capsule by mouth once daily. No current facility-administered medications for this visit. FAMILY HISTORY Problem Relation Age of Onset Diabetes Father Social History Tobacco Use Smoking status: Every Day Packs/day: 1.00 Years: 30.00 Additional pack years: 0.00 Total pack years: 30.00 Types: Cigarettes Smokeless tobacco: Never Tobacco comments: 1-2 ppd. Wants to quit Vaping Use Vaping Use: Never used Substance Use Topics Alcohol use: Not Currently Drug use: Never REVIEW OF SYSTEMS Review of Systems Constitutional: Positive for fatigue. Negative for activity change, appetite change, chills and fever. HENT: Negative for hearing loss, postnasal drip and sore throat. Respiratory: Positive for cough and shortness of breath. Negative for chest tightness and wheezing. Cardiovascular: Negative for chest pain, palpitations and leg swelling. Gastrointestinal: Negative for abdominal pain, constipation, diarrhea, nausea and vomiting. Endocrine: Negative for polydipsia and polyphagia. Genitourinary: Negative for dysuria and hematuria. Musculoskeletal: Negative for arthralgias, gait problem and joint swelling. Skin: Negative for color change, pallor, rash and wound. Bridge of nose with a non-healing chow erosion that is 3 mm in size (not changing) without bleeding Neurological: Negative for dizziness, tremors and syncope. Psychiatric/Behavioral: Denies hopelessness or helplessness Smoked 1/4 ppd for 10 years. < Than 1 ppd for 10 years, 1 ppd. For 10 years. EXAM: BP 142/82 Pulse 87 Wt 93.9 kg (207 lb) SpO2 97% BMI 30.79 kg/m? PHYSICAL EXAM: Physical Exam Vitals reviewed. Constitutional: Appearance: Normal appearance. HENT: Head: Normocephalic. Right Ear: There is no impacted cerumen. Left Ear: There is impacted cerumen. Nose: Comments: Erosions left ear Mouth/Throat: Mouth: Mucous membranes are dry. Cardiovascular: Rate and Rhythm: Normal rate and regular rhythm. Pulmonary: Effort: Pulmonary effort is normal. Breath sounds: Normal breath sounds. Comments: Cleared after cough Diminished throughout Abdominal: General: Bowel sounds are absent. Palpations: Abdomen is soft. Musculoskeletal: Cervical back: Neck supple. Comments: Full ROM AND strength in all ext., Skin: General: Skin is warm and dry. Neurological: Mental Status: He is alert. LABS: Labs today ASSESSMENT/PLAN: 1. Hyperlipidemia, mixed - ICD9: 272.2, ICD10: E78.2 - Control undetermined, due for labs - Continue current medications - Counseled on healthy diet and regular exercise - ATORVASTATIN 40 MG TABLET 2. Tobacco use disorder - ICD9: 305.1, ICD10: F17.200 (primary diagnosis) - Cessation encouraged. - Physiologic and physical aspects of tobacco addiction as well as strategies for quitting were discussed. - Counseling was given focusing on the harmful effects of this addiction especially given the patient's medical condition(s) which will be worsened because of the chemicals in tobacco. - COMPLETE BLOOD COUNT AND DIFFERENTIAL 3. Uncontrolled type 2 diabetes mellitus with hyperglycemia (HCC) - ICD9: 250.02, ICD10: E11.65 Get labs - Continue current medications - COMPREHENSIVE METABOLIC PANEL - MAGNESIUM - THYROID STIMULATING HORMONE - ALBUMIN/CREATININE RATIO, URINE - HEMOGLOBIN A1C - Discussed diet 4. Gastroesophageal reflux disease without esophagitis - ICD9: 530.81, ICD10: K21.9 - Pepcid not effective - PANTOPRAZOLE 40 MG TABLET,DE (more content not included)...[facility]05-09-2024 History of Present illness Narrative* Kaela Martinez, DRAGLINE OPERATOR HELPER.DAIRY BACTERIOLOGIST - 02/11/2024 3:59 PM EDT This is a 53 year old male who presents today with: Patient presents with: Follow Up HISTORY OF PRESENT ILLNESS: Efrain Hamm is a 53 year old male. Patient presents with: Follow Up Acne continues to persist on nose even with using the wipes. Hasn't healed in 2 months. Sore- feelslike a sunburn. Getting heart burn really bad. Pepcid not helping. Wants to get off DM meds. Dietary changes. PAST MEDICAL HISTORY: PAST MEDICAL HISTORY Diagnosis Date CAP (community acquired pneumonia) 02/06/2022 bibasilar opacities R>L suggesting infiltrate or atelectasis. Treated with Levaquin 500mg x 10 dwith resolution Obese body habitus No past surgical history on file. ALLERGIES Aleve [Naproxen Sodium] MEDICATIONS Current Outpatient Medications Medication Sig dulaglutide (TRULICITY) 4.5 mg/0.5 mL pen injector Inject 4.5 mg subcutaneously one time a week. atorvastatin (LIPITOR) 40 mg tablet Take 1 tablet by mouth daily at bedtime. For cholesterol. blood sugar diagnostic (BLOOD GLUCOSE TEST) test strip Test blood sugar(s) 2 times daily. Dx: Type 2 DM - Uncontrolled E11.65 Insulin: No ascorbic acid (VITAMIN C ORAL) Take by mouth. ZINC ORAL Take by mouth. Cholecalciferol, Vitamin D3, 50 mcg (2,000 unit) cap Take 1 capsule by mouth once daily. No current facility-administered medications for this visit. FAMILY HISTORY Problem Relation Age of Onset Diabetes Father Social History Tobacco Use Smoking status: Every Day Packs/day: 1.00 Years: 30.00 Additional pack years: 0.00 Total pack years: 30.00 Types: Cigarettes Smokeless tobacco: Never Tobacco comments: 1-2 ppd. Wants to quit Vaping Use Vaping Use: Never used Substance Use Topics Alcohol use: Not Currently Drug use: Never REVIEW OF SYSTEMS Review of Systems Constitutional: Positive for fatigue. Negative for activity change, appetite change, chills and fever. HENT: Negative for hearing loss, postnasal drip and sore throat. Respiratory: Positive for cough and shortness of breath. Negative for chest tightness and wheezing. Cardiovascular: Negative for chest pain, palpitations and leg swelling. Gastrointestinal: Negative for abdominal pain, constipation, diarrhea, nausea and vomiting. Endocrine: Negative for polydipsia and polyphagia. Genitourinary: Negative for dysuria and hematuria. Musculoskeletal: Negative for arthralgias, gait problem and joint swelling. Skin: Negative for color change, pallor, rash and wound. Bridge of nose with a non-healing chow erosion that is 3 mm in size (not changing) without bleeding Neurological: Negative for dizziness, tremors and syncope. Psychiatric/Behavioral: Denies hopelessness or helplessness Smoked 1/4 ppd for 10 years. < Than 1 ppd for 10 years, 1 ppd. For 10 years. EXAM: BP 142/82 Pulse 87 Wt 93.9 kg (207 lb) SpO2 97% BMI 30.79 kg/m PHYSICAL EXAM: Physical Exam Vitals reviewed. Constitutional: Appearance: Normal appearance. HENT: Head: Normocephalic. Right Ear: There is no impacted cerumen. Left Ear: There is impacted cerumen. Nose: Comments: Erosions left ear Mouth/Throat: Mouth: Mucous membranes are dry. Cardiovascular: Rate and Rhythm: Normal rate and regular rhythm. Pulmonary: Effort: Pulmonary effort is normal. Breath sounds: Normal breath sounds. Comments: Cleared after cough Diminished throughout Abdominal: General: Bowel sounds are absent. Palpations: Abdomen is soft. Musculoskeletal: Cervical back: Neck supple. Comments: Full ROM & strength in all ext., Skin: General: Skin is warm and dry. Neurological: Mental Status: He is alert. LABS: Labs today ASSESSMENT/PLAN: 1. Hyperlipidemia, mixed - ICD9: 272.2, ICD10: E78.2 - Control undetermined, due for labs - Continue current medications - Counseled on healthy diet and regular exercise - ATORVASTATIN 40 MG TABLET 2. Tobacco use disorder - ICD9: 305.1, ICD10: F17.200 (primary diagnosis) - Cessation encouraged. - Physiologic and physical aspects of tobacco addiction as well as strategies for quitting were discussed. - Counseling was given focusing on the harmful effects of this addiction especially given the patient's medical condition(s) which will be worsened because of the chemicals in tobacco. - COMPLETE BLOOD COUNT AND DIFFERENTIAL 3. Uncontrolled type 2 diabetes mellitus with hyperglycemia (HCC) - ICD9: 250.02, ICD10: E11.65 Get labs - Continue current medications - COMPREHENSIVE METABOLIC PANEL - MAGNESIUM - THYROID STIMULATING HORMONE - ALBUMIN/CREATININE RATIO, URINE - HEMOGLOBIN A1C - Discussed diet 4. Gastroesophageal reflux disease without esophagitis - ICD9: 530.81, ICD10: K21.9 - Pepcid not effective - PANTOPRAZOLE 40 MG TABLET,DELAYED RELEASE 5. Actinic keratosis - ICD9: 702.0, ICD10: L57.0 Nose 3mm erosion - FLUOROURACIL 0.5 % TOPICAL CREAM Discussed treatment plan and patient voices understanding. Patient's questions answered appropriately. Medications and potential side effects were discussed and patient voices understanding. Return to the office as scheduled or as needed for worsening/no improvement. Kaela Martinez APRN.LAURIE documented in this encounterOur [facility] Miscellaneous Notes* Telephone Encounter - Wilma Bazzi Ma - 01/28/2023 2:26 PM EDT Notified PA not needed. [facility] and patient picked up on 01/23 Wilma Bazzi Ma * Telephone Encounter - Wilma Bazzi Ma - 01/27/2023 1:43 PM EDT Prior Authorization has been completed online at [employer] for [employer], will await response. FOSS- [id number] Please keep encounter open until final decision has been received and documented from insurance company. Wilma Bazzi MA documented in this encounterOur Lady Of [facility]23 Miscellaneous Notes* Telephone Encounter - Angiesandy Multani - 01/23/2023 8:46 AM EDT Message left for patient to return call for results. Angie Multani * Telephone Encounter - Brendon Arroyo PA-C - 01/23/2023 4:12 AM EDT Please let him know urine creatinine is elevated which can be a marker of early kidney disease. Hisratio is normal which is good. We will continue to watch and it remains elevated, I may have him doa 24h urine collection. Blood sugars are looking better. I would like you're hgab1c less than 7%. I am going to increase Trulicity to 3mg weekly. We should recheck in 3 months. Let's stay on this until we get things stabilized in a good range. Telephone on 01/23/23 HGB A1C BASIC METABOLIC PNL The following approved medication requests have been transmitted electronically. Requested Prescriptions Signed Prescriptions Disp Refills dulaglutide (TRULICITY) 3 mg/0.5 mL pen injector 12 Each 1 Sig: Inject 3 mg subcutaneously one time a week. Authorizing Provider: Brendon ARROYO PA-C Best, M Gregory Barton, PA-C documented in this encounterOur Lady Of [facility] Hospital Discharge instructions Patient Education 12/06/2022 12:13:17 Dental Pain Dental Pain A crack or cavity in a tooth can cause tooth pain. This is because the crack or cavity exposes the sensitive inner area of the tooth. An infection in the gum or the root of the tooth can cause pain and swelling. The pain is often made worse when you drink hot or cold beverages. It can also be worsewhen you bite on hard foods. Pain may spread from the tooth to your ear or the area of the jaw on the same side. Home care Follow these tips when caring for yourself at home: Don't have hot and cold foods and drinks. Your tooth may be sensitive to changes in temperature. Use toothpaste made for sensitive teeth. [place] gently up and down instead of sideways. Brushing sideways can wear away root surfaces if they are exposed. If your tooth is chipped or cracked, or if there is a large open cavity, put oil of cloves directlyon the tooth to relieve pain. You can buy oil of cloves at [facility]. Some pharmacies carry an ghae-wse-upcycgw toothache kit. This contains a paste that you can put on the exposed tooth to make it less sensitive. Put a cold pack on your jaw over the sore area to help reduce pain. You may use hnaf-mkf-ecoldfc medicine to ease pain, unless your doctor prescribed another medicine.If you have chronic liver or kidney disease, talk with your healthcare provider before using acetaminophen or ibuprofen. Also talk with your provider if you ve had a stomach ulcer or GI bleeding. If you have signs of an infection, you will be given an antibiotic. Take it as directed. Follow-up care Follow up with your dentist, or as advised. Your pain may go away with the treatment given today. But only a dentist can fully look at and treat the cause of your pain. This will keep the pain from coming back. Call 911 Call 911 if any of these occur: Unusual drowsiness Headache or stiff neck Weakness or fainting Difficulty swallowing or breathing When to seek medical advice Call your health care provider right away if any of these occur: Your face becomes swollen or red Pain gets worse or spreads to your neck Fever of 100.4 F (38.0 C) or higher, or as directed by your healthcare provider Pus drains from the tooth 7050-0[address] [employer] [place] [address]. All rights reserved. This information is not intended as a substitute for professional medical care. Always follow yourhealthcare professional's instructions. Follow Up Care 12/06/2022 12:01:52 With:your dentist Address: When:2-4 days With:Go to emergency room if symptoms worsen Address:Unknown When:2-4 days With:Follow up with primary care provider Address:Unknown When:2-4 days [facility] 03-04-2023 Note Discharge Instructions Thank you for allowing [facility] to assist you with your healthcare needs. The following is importantdischarge information regarding your hospital visit. Diagnosis from Today's Visit Odontalgia Pain in tooth What to Do Next Instructions from Your Care Team Follow-up with your dentist. Take clindamycin as prescribed. Turn the emergency department if you experience worsening symptoms, inability to eat or drink, inability to swallow, or any other care concern No qualifying data available. Post Acute Orders No qualifying data available. You Need to Schedule the Following Appointments Follow Up with your dentist When Within 2-4 days Where: Follow Up with Go to emergency room if symptoms worsen When Within 2-4 days Follow Up with Follow up with primary care provider When Within 2-4 days Allergies NKA Medications Please ask your primary doctor or pharmacist before taking any other medication not listed, including over the counter drugs, herbal medications, vitamins and or supplements as they may interact withyour home medications. What How Much When Why Instructions Last Dose New clindamycin (clindamycin 150 mg oral capsule) 3 cap by mouth Three (3) times a day Odontalgia Duration: 7 Days Printed Prescription Unchanged dulaglutide (Trulicity Pen 1.5 mg/ 0.5 mL subcutaneous solution) 1.5 Milligram Subcutaneous Every week Please take this list to your next doctor s visit. Bring all medications you take, including over the counter medications, herbals and other supplements with you to your doctor s visit. Patients and families are reminded to discard old lists and to update any records with all medication providers or retail pharmacies. Education Materials Dental Pain A crack or cavity in a tooth can cause tooth pain. This is because the crack or cavity exposes the sensitive inner area of the tooth. An infection in the gum or the root of the tooth can cause pain and swelling. The pain is often made worse when you drink hot or cold beverages. It can also be worsewhen you bite on hard foods. Pain may spread from the tooth to your ear or the area of the jaw on the same side. Home care Follow these tips when caring for yourself at home: Don't have hot and cold foods and drinks. Your tooth may be sensitive to changes in temperature. Use toothpaste made for sensitive teeth. [place] gently up and down instead of sideways. Brushing sideways can wear away root surfaces if they are exposed. If your tooth is chipped or cracked, or if there is a large open cavity, put oil of cloves directlyon the tooth to relieve pain. You can buy oil of cloves at drugstores. Some pharmacies carry an fzsn-dsf-uvqisie toothache kit. This contains a paste that you can put on the exposed tooth to make it less sensitive. Put a cold pack on your jaw over the sore area to help reduce pain. You may use gqzm-rje-fwwauhx medicine to ease pain, unless your doctor prescribed another medicine.If you have chronic liver or kidney disease, talk with your healthcare provider before using acetaminophen or ibuprofen. Also talk with your provider if you ve had a stomach ulcer or GI bleeding. If you have signs of an infection, you will be given an antibiotic. Take it as directed. Follow-up care Follow up with your dentist, or as advised. Your pain may go away with the treatment given today. But only a dentist can fully look at and treat the cause of your pain. This will keep the pain from coming back. Call 911 Call 911 if any of these occur: Unusual drowsiness Headache or stiff neck Weakness or fainting Difficulty swallowing or breathing When to seek medical advice Call your health care provider right away if any of these occur: Your face becomes swollen or red Pain gets worse or spreads to your neck Fever of 100.4 F (38.0 C) or higher, or as directed by your healthcare provider Pus drains from the tooth [id number] [employer] [place] [address]. All rights reserved. This information is not intended as a substitute for professional medical care. Always follow yourhealthcare professional's instructions. Additional Information VACCINATE! IT SAVES LIVES! Members of the community who have not yet received the COVID-19 vaccine and would like to receive it can visit one of [facility] vaccine clinics. There are many vaccine clinic locations within the [facility]. For locations and available times, please visit [email or web address]/. It is important to note that some COVID mobile vaccine clinics are held outdoors and may be canceled in rainy or stormy conditions. To learn more about pediatric vaccinations (ages 5-11), we invite you to visit the [facility] webpage. [email or web address]/[email or web address] [email or web address] learn more about the COVID-19 vaccine, we invite you to visit the CDC website for a list of frequently asked questions. https://www.cdc.gov/coronavirus/2019-ncov/vaccines/faq.html [facility] Patient Portal Access Instructions: Stay connected with your healthcare team and access your personal medical information anytime with the [facility] Patient Portal. If you would like a full copy of your medical records please contact the [facility] Medical Records Department Thursday through Thursday between 8a.m. and 4:30p.m. Please follow the directions below to access the portal: 1.Access the email account you provided upon registration to the [facility].2.Look for an invitation email from [facility].3.Open the email and access the invitation link: Accept Invitation to [facility]4.Fill in the required rothman to create your account. Sign into [email or web address] with your username and password that you created in the above steps to stay up to date. You can then view a summary of results, a summary of your visits, and the ability to download your summaries to your computer or send the information securely to a physician. Remember that your healthcare information is confidential, so carefully consider who you will allow to register on the [facility] Patient Portal for access to your information. You can also access the [facility] Patient Portal on the [employer] heidi. Simply click on Health Records under [employer] and then click on the [facility] logo. HOW TO SAFELY DISPOSE OF PRESCRIPTION MEDICATIONS Please use one of the following methods to safely dispose of your unused medications. 1.Use a drug disposal kit: the drug disposal pouch allows you to safely discard your old and unuseddrugs. Ask your nurse to give you one when you are discharged.2.Visit a local take-back location: Many local pharmacies and police departments have programs that collect old and unwanted prescriptiondrugs. Call your local pharmacy or go to http://bit.The 3Doodler/8Q8Qe5h to find one close to you.3.Make use of household items: Use cat litter or old coffee grounds to dispose medications if other options arenot available. Mix your drugs with these household products, seal them in an airtight container andthrow it into the garbage. Call [facility]: [phone] to be sure your drugs can be disposed of in this way. Some medicines may require a different approach.4.Never flush your medications down the toilet. IF YOU HAVE BEEN PRESCRIBED AN OPIOIDS FOR PAIN If you have been prescribed an opioid (such as hydrocodone, oxycodone or morphine), it is critical to understand the possible side effects and risks of opioid pain medications. Even when taken as directed, opioids can have several side effects including: Tolerance, meaning you might need to take more of a medication for the same pain relief. Nausea, vomiting and/or constipation. Sleepiness, dizziness, dry mouth, confusion, depression or itching. Physical dependence, meaning you have withdrawal symptoms when a medication is stopped ? this can develop within a few days. KNOW YOUR RESPONSIBILITIES It is important to know exactly how much and how often to take the opioid pain medications you are prescribed. Never take opioids in higher amounts or more often than prescribed. Do not combine opioids with alcohol or other drugs that cause drowsiness, such as benzodiazepines, also known as benzos,including diazepam and alprazolam, muscle relaxants or sleep aids. Never sell or share prescriptionopioids. This is illegal. Store opioids in a secure place and out of reach of others (including children, family, friends and visitors). The last page(s) of this document has been signed and retained as a CHART COPY Signatures Patient Education Materials Dental Pain Medication Leaflets My discharge plan and instructions have been reviewed and explained to me and I,EFRAIN HAMM understand my current condition and have read and understand these discharge instructions. I have receiveda written copy of the plan/instructions. If I have questions, I am aware that I should contact my do ctor. 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 This is because the crack or cavity exposes the sensitive inner area of the tooth. An infection in the gum or the root of the tooth can cause pain and swelling. The pain is often made worse when you drink hot or cold beverages. It can also be worsewhen you bite on hard foods. Pain may spread from the tooth to your ear or the area of the jaw on the same side. Home care Follow these tips when caring for yourself at home: Don't have hot and cold foods and drinks. Your tooth may be sensitive to changes in temperature. Use toothpaste made for sensitive teeth. [place] gently up and down instead of sideways. Brushing sideways can wear away root surfaces if they are exposed. If your tooth is chipped or cracked, or if there is a large open cavity, put oil of cloves directlyon the tooth to relieve pain. You can buy oil of cloves at drugstores. Some pharmacies carry an ejow-xym-jcjrbnh toothache kit. This contains a paste that you can put on the exposed tooth to make it less sensitive. Put a cold pack on your jaw over the sore area to help reduce pain. You may use czpo-wqj-jhqvlrw medicine to ease pain, unless your doctor prescribed another medicine.If you have chronic liver or kidney disease, talk with your healthcare provider before using acetaminophen or ibuprofen. Also talk with your provider if you ve had a stomach ulcer or GI bleeding. If you have signs of an infection, you will be given an antibiotic. Take it as directed. Follow-up care Follow up with your dentist, or as advised. Your pain may go away with the treatment given today. But only a dentist can fully look at and treat the cause of your pain. This will keep the pain from coming back. Call 911 Call 911 if any of these occur: Unusual drowsiness Headache or stiff neck Weakness or fainting Difficulty swallowing or breathing When to seek medical advice Call your health care provider right away if any of these occur: Your face becomes swollen or red Pain gets worse or spreads to your neck Fever of 100.4 F (38.0 C) or higher, or as directed by your healthcare provider Pus drains from the tooth [id number] [employer]. [address] [place] [address]. All rights reserved. This information is not intended as a substitute for professional medical care. Always follow yourhealthcare professional's instructions. Follow Up Care 10/20/2022 13:03:34 With:Dentist Address: When:2-4 days With:Go to emergency room if symptoms worsen Address:Unknown When:2-4 days [facility] 01-16-2023 Note Discharge Instructions Thank you for allowing [facility] to assist you with your healthcare needs. The following is importantdischarge information regarding your hospital visit. Diagnosis from Today's Visit Odontalgia Dental pain What to Do Next Instructions from Your Care Team No qualifying data available. Post Acute Orders No qualifying data available. You Need to Schedule the Following Appointments Follow Up with Dentist When Within 2-4 days Where: Follow Up with Go to emergency room if symptoms worsen When Within 2-4 days Allergies NKA Medications Please ask your primary doctor or pharmacist before taking any other medication not listed, including over the counter drugs, herbal medications, vitamins and or supplements as they may interact withyour home medications. What How Much When Why Instructions Last Dose New acetaminophen-hydrocodone (Maybrook 325- 5 mg oral tablet) 1 tab(s) by mouth Every 4 hours as needed for for pain Odontalgia Duration: 3 Days Printed Prescription New naproxen (naproxen 500 mg oral tablet) 1 tab(s) by mouth Two (2) times a day Odontalgia Printed Prescription New penicillin V potassium (penicillin V potassium 500 mg oral tablet) 1 tab(s) by mouth Every 6 hours Odontalgia Printed Prescription Unchanged dulaglutide (Trulicity Pen 1.5 mg/ 0.5 mL subcutaneous solution) 1.5 Milligram Subcutaneous Every week Please take this list to your next doctor s visit. Bring all medications you take, including over the counter medications, herbals and other supplements with you to your doctor s visit. Patients and families are reminded to discard old lists and to update any records with all medication providers or retail pharmacies. Medication Leaflets penicillin V potassium (oral) (PEN i RAMILA in V latisha TAS ee um) What is the most important information I should know about penicillin V potassium? You should not be treated with this medicine if you are allergic to penicillin. What is penicillin V potassium? Penicillin V potassium is a slow-onset antibiotic that is used to treat many types of mild to moderate infections caused by bacteria, including scarlet fever, pneumonia, skin infections, and infections affecting the nose, mouth, or throat. Penicillin V potassium is also used to prevent the symptomsof rheumatic fever. Penicillin V potassium is also used to prevent infections of the heart valves in people with certain heart conditions who need to have dental work or surgery. Penicillin V potassium may also be used for purposes not listed in this medication guide. What should I discuss with my healthcare provider before taking penicillin V potassium? You should not be treated with this medicine if you are allergic to penicillin. Tell your doctor if you have ever had: an allergic reaction to a cephalosporin antibiotic (Keflex, Omnicef, and others); any type of allergy; asthma or breathing problems; a stomach or intestinal disorder; heart disease; or kidney disease. If you have stomach problems or are sick with severe vomiting or diarrhea, your medication may not be as effective. Penicillin V potassium oral liquid may contain phenylalanine. Tell your doctor if you have phenylketonuria (PKU). Tell your doctor if you are or . Do not give this medicine to a child without medical advice. How should I take penicillin V potassium? Follow all directions on your prescription label and read all medication guides or instruction sheets. Use the medicine exactly as directed. You may take penicillin V potassium with or without food. Shake the oral liquid before you measure a dose. Use the dosing syringe provided, or use a medicinedose-measuring device (not a kitchen spoon). When given before surgery or dental work, penicillin V potassium is usually taken 1 hour before and6 hours after the procedure. Follow your doctor's dosing instructions very carefully. Use this medicine for the full prescribed length of time, even if your symptoms quickly improve. Skipping doses can increase your risk of infection that is resistant to medication. Penicillin V potassium will not treat a viral infection such as the flu or a common cold. After you have finished all doses, your doctor may want to do tests to make sure your infection hascompletely cleared up. Store the tablets at room temperature away from moisture, heat, and light. Store the liquid in a refrigerator. Do not freeze. Throw away any unused liquid after 14 days. What happens if I miss a dose? Take the medicine as soon as you can, but skip the missed dose if it is almost time for your next dose. Do not take two doses at one time. What happens if I overdose? Seek emergency medical attention or call the Poison Help line at . What should I avoid while taking penicillin V potassium? Do not share this medicine with another person, even if they have the same symptoms you have. Antibiotic medicines can cause diarrhea, which may be a sign of a new infection. If you have diarrhea that is watery or bloody, call your doctor before using anti-diarrhea medicine. What are the possible side effects of penicillin V potassium? Get emergency medical help if you have signs of an allergic reaction: hives; fever, chills, joint pain; difficult breathing; swelling of your face, lips, tongue, or throat. Call your doctor at once if you have: severe stomach pain, diarrhea that is watery or bloody (even if it occurs months after your last dose); easy bruising or bleeding; pale or yellowed skin, dark colored urine; numbness, tingling, or burning pain; urination problems; or fever, swollen glands, itching, joint pain, or not feeling well. Common side effects may include: nausea, vomiting, upset stomach; diarrhea; swollen, black, or 'hairy' tongue; rash; or vaginal itching or discharge. This is not a complete list of side effects and others may occur. Call your doctor for medical advice about side effects. You may report side effects to FDA at 7-086-KEV-4194. What other drugs will affect penicillin V potassium? Penicillin V potassium can make control pills less effective. Ask your doctor about using a non-hormonal control (condom, diaphragm with spermicide) to prevent . Other drugs may affect penicillin V potassium, including prescription and huun-gcq-obnusva medicines, vitamins, and herbal products. Tell your doctor about all your current medicines and any medicineyou start or stop using. Where can I get more information? Your doctor or pharmacist can provide more information about penicillin V potassium. Remember, keep this and all other medicines out of the reach of children, never share your medicines with others, and use this medication only for the indication prescribed. Every effort has been made to ensure that the information provided by [employer]. ('[employer]') is accurate, up-to-date, and complete, but no guarantee is made to that effect. Drug information contained herein may be time sensitive. [employer] information has been compiled for use by healthcare practitioners and consumers in the [place] and therefore [employer] does not warrant that uses outside of the [place] are appropriate, unless specifically indicated otherwise. [employer] drug information does not endorse drugs, diagnose patients or recommend therapy. [employer] drug information isan informational resource designed to assist licensed healthcare practitioners in caring for their p atients and/or to serve consumers viewing this service as a supplement to, and not a substitute for, the expertise, skill, knowledge and judgment of healthcare practitioners. The absence of a warningfor a given drug or drug combination in no way should be construed to indicate that the drug or drug combination is safe, effective or appropriate for any given patient. [employer] does not assume any responsibility for any aspect of healthcare administered with the aid of information [employer] provides. The information contained herein is not intended to cover all possible uses, directions, precautions, warnings, drug interactions, allergic reactions, or adverse effects. If you have questions about the drugs you are taking, check with your doctor, nurse or pharmacist. Copyright 1962-9852 [employer]. Version: 2.01. Revision Date: 06/20/2019. acetaminophen and hydrocodone (a SEET a MIN oh fen and delfino droe KOE done) Hycet, Lorcet, Maybrook, Verdrocet, Vicodin, Xodol, Zamicet What is the most important information I should know about acetaminophen and hydrocodone? MISUSE OF OPIOID MEDICINE CAN CAUSE ADDICTION, OVERDOSE, OR . Keep the medication in a place where others cannot get to it. Taking opioid medicine during may cause life-threatening withdrawal symptoms in the . Fatal side effects can occur if you use opioid medicine with alcohol, or with other drugs that cause drowsiness or slow your breathing. Stop taking this medicine and call your doctor right away if you have skin redness or a rash that spreads and causes blistering and peeling. What is acetaminophen and hydrocodone? Acetaminophen and hydrocodone is a combination medicine used to relieve moderate to severe pain. Acetaminophen and hydrocodone contains an opioid medicine, and may be habit-forming. Acetaminophen and hydrocodone may also be used for purposes not listed in this medication guide. What should I discuss with my healthcare provider before taking acetaminophen and hydrocodone? You should not use this medicine if you are allergic to acetaminophen or hydrocodone, or if you have: severe asthma or breathing problems; or a blockage in your stomach or intestines. Tell your doctor if you have ever had: breathing problems, sleep apnea (breathing stops during sleep); liver disease; a drug or alcohol addiction; kidney disease; a head injury or seizures; urination problems; or problems with your thyroid, pancreas, or gallbladder. If you use opioid medicine while you are , your baby could become dependent on the drug. This can cause life-threatening withdrawal symptoms in the baby after it is born. Babies born dependent on opioids may need medical treatment for several weeks. Ask a doctor before using opioid medicine if you are . Tell your doctor if you notice severe drowsiness or slow breathing in the nursing baby. How should I take acetaminophen and hydrocodone? Follow all directions on your prescription label. Never take this medicine in larger amounts, or for longer than prescribed. An overdose can damage your liver or cause . Tell your doctor if you feel an increased urge to use more of this medicine. Never share this medicine with another person, especially someone with a history of drug abuse or addiction. MISUSE CAN CAUSE ADDICTION, OVERDOSE, OR . Keep the medicine in a place where otherscannot get to it. Selling or giving away this medicine is against the law. Measure liquid medicine carefully. Use the dosing syringe provided, or use a medicine dose-measuring device (not a kitchen spoon). If you need surgery or medical tests, tell the doctor ahead of time that you are using this medicine. You should not stop using this medicine suddenly. Follow your doctor's instructions about tapering your dose. Store at room temperature away from moisture and heat. Keep track of your medicine. You should be aware if anyone is using it improperly or without a prescription. Do not keep leftover opioid medication. Just one dose can cause in someone using this medicine accidentally or improperly. Ask your pharmacist where to locate a drug take-back disposal program.If there is no take-back program, flush the unused medicine down the toilet. What happens if I miss a dose? Since this medicine is used for pain, you are not likely to miss a dose. Skip any missed dose if itis almost time for your next dose. Do not use two doses at one time. What happens if I overdose? Seek emergency medical attention or call the Poison Help line at . An overdose of this medicine can be fatal, especially in a child or other person using the medicine without a prescription. Overdose symptoms may include nausea, vomiting, sweating, severe drowsiness, pinpoint pupils, slow breathing, or no breathing. Your doctor may recommend you get naloxone (a medicine to reverse an opioid overdose) and keep it with you at all times. A person caring for you can give the naloxone if you stop breathing or don't wake up. Your caregiver must still get emergency medical help and may need to perform CPR (cardiopulmonary resuscitation) on you while waiting for help to arrive. Anyone can buy naloxone from a pharmacy or local health department. Make sure any person caring foryou knows where you keep naloxone and how to use it. What should I avoid while taking acetaminophen and hydrocodone? Avoid driving or operating machinery until you know how this medicine will affect you. Dizziness ordrowsiness can cause falls, accidents, or severe injuries. Do not drink alcohol. Dangerous side effects or could occur. Ask a doctor or pharmacist before using any other medicine that may contain acetaminophen (sometimes abbreviated as APAP). Taking certain medications together can lead to a fatal overdose. What are the possible side effects of acetaminophen and hydrocodone? Get emergency medical help if you have signs of an allergic reaction: hives; difficulty breathing; swelling of your face, lips, tongue, or throat. Opioid medicine can slow or stop your breathing, and may occur. A person caring for you should give naloxone and/or seek emergency medical attention if you have slow breathing with long pauses,blue colored lips, or if you are hard to wake up. In rare cases, acetaminophen may cause a severe skin reaction that can be fatal. This could occur even if you have taken acetaminophen in the past and had no reaction. Stop taking this medicine and call your doctor right away if you have skin redness or a rash that spreads and causes blistering andpeeling. Call your doctor at once if you have: noisy breathing, sighing, shallow breathing, breathing that stops; a light-headed feeling, like you might pass out; liver problems--nausea, upper stomach pain, tiredness, loss of appetite, dark urine, johana-colored stools, jaundice (yellowing of the skin or eyes); low cortisol levels-- nausea, vomiting, loss of appetite, dizziness, worsening tiredness or weakness; o high levels of serotonin in the body--agitation, hallucinations, fever, sweating, shivering, fast heart rate, muscle stiffness, twitching, loss of coordination, nausea, vomiting, diarrhea. Serious breathing problems may be more likely in older adults and in those who are debilitated or have wasting syndrome or chronic breathing disorders. Common side effects include: dizziness, drowsiness, feeling tired; nausea, vomiting, stomach pain; constipation; or headache. This is not a complete list of side effects and others may occur. Call your doctor for medical advice about side effects. You may report side effects to FDA at 5-325-VHN-7209. What other drugs will affect acetaminophen and hydrocodone? You may have breathing problems or withdrawal symptoms if you start or stop taking certain other medicines. Tell your doctor if you also use an antibiotic, antifungal medication, heart or blood pressure medication, seizure medication, or medicine to treat HIV or hepatitis C. Opioid medication can interact with many other drugs and cause dangerous side effects or . Be sure your doctor knows if you also use: cold or allergy medicines, bronchodilator asthma/COPD medication, or a diuretic ('water pill'); medicines for motion sickness, irritable bowel syndrome, or overactive bladder; other opioids--opioid pain medicine or prescription cough medicine; a sedative like Valium--diazepam, alprazolam, lorazepam, Xanax, Klonopin, Versed, and others; drugs that make you sleepy or slow your breathing--a sleeping pill, muscle relaxer, medicine to treat mood disorders or mental illness; drugs that affect serotonin levels in your body--a stimulant, or medicine for depression, Parkinson's disease, migraine headaches, serious infections, or nausea and vomiting. This list is not complete. Other drugs may affect acetaminophen and hydrocodone, including prescription and jydg-dis-guslyti medicines, vitamins, and herbal products. Not all possible interactions are listed here. Where can I get more information? Your doctor or pharmacist can provide more information about acetaminophen and hydrocodone. Remember, keep this and all other medicines out of the reach of children, never share your medicines with others, and use this medication only for the indication prescribed. Every effort has been made to ensure that the information provided by [employer]. ('[employer]') is accurate, up-to-date, and complete, but no guarantee is made to that effect. Drug information contained herein may be time sensitive. [employer] information has been compiled for use by healthcare practitioners and consumers in the [place] and therefore [employer] does not warrant that uses outside of the [place] are appropriate, unless specifically indicated otherwise. [employer] drug information does not endorse drugs, diagnose patients or recommend therapy. [employer] drug information isan informational resource designed to assist licensed healthcare practitioners in caring for their p atients and/or to serve consumers viewing this service as a supplement to, and not a substitute for, the expertise, skill, knowledge and judgment of healthcare practitioners. The absence of a warningfor a given drug or drug combination in no way should be construed to indicate that the drug or drug combination is safe, effective or appropriate for any given patient. [employer] does not assume any responsibility for any aspect of healthcare administered with the aid of information [employer] provides. The information contained herein is not intended to cover all possible uses, directions, precautions, warnings, drug interactions, allergic reactions, or adverse effects. If you have questions about the drugs you are taking, check with your doctor, nurse or pharmacist. Copyright 3392-5187 [employer]. Version: 16.03. Revision Date: 11/06/2020. naproxen (na PROX en) Aleve, Anaprox-DS, Midol Extended Relief, Naprelan 500, Naprosyn What is the most important information I should know about naproxen? Naproxen can increase your risk of fatal heart attack or stroke. Do not use this medicine just before or after heart bypass surgery (coronary artery bypass graft, or CABG). Naproxen may also cause stomach or intestinal bleeding, which can be fatal. What is naproxen? Naproxen is a nonsteroidal anti-inflammatory drug (NSAID). Naproxen is used to treat pain or inflammation caused by conditions such as arthritis, ankylosing spondylitis, tendinitis, bursitis, gout, or menstrual cramps. The delayed-release or extended-release tablets are slower-acting forms of naproxen that are used only for treating chronic conditions such as arthritis or ankylosing spondylitis. These forms of naproxen will not work fast enough to treat acute pain. Naproxen may also be used for purposes not listed in this medication guide. What should I discuss with my healthcare provider before taking naproxen? Naproxen can increase your risk of fatal heart attack or stroke, even if you don't have any risk factors. Do not use this medicine just before or after heart bypass surgery (coronary artery bypass graft, or CABG). Naproxen may also cause stomach or intestinal bleeding, which can be fatal. These conditions can occur without warning while you are using naproxen, especially in older adults. You should not use naproxen if you are allergic to it, or if you have ever had an asthma attack or severe allergic reaction after taking aspirin or an NSAID. Ask a doctor before giving naproxen to a child younger than 12 years old. Ask a doctor or pharmacist if this medicine is safe to use if you have: heart disease, high blood pressure, high cholesterol, diabetes, or if you smoke; a heart attack, stroke, or blood clot; stomach ulcers or bleeding; asthma; liver or kidney disease; fluid retention; or if you take aspirin to prevent heart attack or stroke. If you are , you should not take naproxen unless your doctor tells you to. Taking an NSAID during the last 20 weeks of can cause serious heart or kidney problems in the unborn baby and possible complications with your . It may not be safe to breastfeed while using this medicine. Ask your doctor about any risk. How should I take naproxen? Use exactly as directed on the label, or as prescribed by your doctor. Use the lowest dose that is effective in treating your condition. Shake the oral suspension (liquid) before you measure a dose. Measure a dose with the supplied measuring device (not a kitchen spoon). Take this medicine with food or milk if it upsets your stomach. Always follow directions on the medicine label about giving this medicine to a child. Naproxen doses are based on weight in children. Your child's dose needs may change if the child gains or loses weight. If you use naproxen long-term, you may need frequent medical tests. This medicine can affect the results of certain medical tests. Tell any doctor who treats you that you are using naproxen. Store at room temperature away from moisture, heat, and light. Keep the bottle tightly closed when not in use. What happens if I miss a dose? Since naproxen is used when needed, you may not be on a dosing schedule. Skip any missed dose if it's almost time for your next dose. Do not use two doses at one time. What happens if I overdose? Seek emergency medical attention or call the Poison Help line at . What should I avoid while taking naproxen? Avoid drinking alcohol. It may increase your risk of stomach bleeding. Avoid taking aspirin or other NSAIDs unless your doctor tells you to. Ask a doctor or pharmacist before using other medicines for pain, fever, swelling, or cold/flu symptoms. They may contain ingredients similar to naproxen (such as aspirin, ibuprofen, or ketoprofen). Ask your doctor before using an antacid, and use only the type your doctor recommends. Some antacids can make it harder for your body to absorb naproxen. What are the possible side effects of naproxen? Get emergency medical help if you have signs of an allergic reaction (runny or stuffy nose, wheezing or trouble breathing, hives, swelling in your face or throat) or a severe skin reaction (fever, sore throat, burning eyes, skin pain, red or purple skin rash with blistering and peeling). Stop using naproxen and seek medical treatment if you have a serious drug reaction that can affect many parts of your body. Symptoms may include skin rash, fever, swollen glands, muscle aches, severeweakness, unusual bruising, or yellowing of your skin or eyes. Get emergency medical help if you have signs of a heart attack or stroke: chest pain spreading to your jaw or shoulder, sudden numbness or weakness on one side of the body, slurred speech, leg swelling, feeling short of breath. Stop using naproxen and call your doctor at once if you have: shortness of breath (even with mild exertion); swelling or rapid weight gain; the first sign of any skin rash or blister, no matter how mild; signs of stomach bleeding--bloody or tarry stools, coughing up blood or vomit that looks like coffee grounds; liver problems--nausea, upper stomach pain, loss of appetite, dark urine, johana- colored stools, jaundice (yellowing of the skin or eyes); kidney problems--little or no urination, painful urination, swelling in your feet or ankles; or low red blood cells (anemia)--pale skin, unusual tiredness, feeling light-headed or short of breath, cold hands and feet. Common side effects may include: headache; indigestion, heartburn, stomach pain; or flu symptoms; This is not a complete list of side effects and others may occur. Call your doctor for medical advice about side effects. You may report side effects to FDA at 0-887-BMH-0616. What other drugs will affect naproxen? Ask your doctor before using naproxen if you take an antidepressant. Taking certain antidepressantswith an NSAID may cause you to bruise or bleed easily. Ask a doctor or pharmacist before using naproxen with any other medications, especially: other NSAIDs or salicylates (diflunisal, salsalate); antacids and sucralfate; cholestyramine; cyclosporine; digoxin; lithium; methotrexate; pemetrexed; probenecid; warfarin (Coumadin, Jantoven) or similar blood thinners; a diuretic or 'water pill'; or heart or blood pressure medication. This list is not complete. Other drugs may affect naproxen, including prescription and zqzu-qqa-avfovdx medicines, vitamins, and herbal products. Not all possible drug interactions are listed here. Where can I get more information? Your pharmacist can provide more information about naproxen. Remember, keep this and all other medicines out of the reach of children, never share your medicines with others, and use this medication only for the indication prescribed. Every effort has been made to ensure that the information provided by [employer] ('[employer]') is accurate, up-to-date, and complete, but no guarantee is made to that effect. Drug information contained herein may be time sensitive. [employer] information has been compiled for use by healthcare practitioners and consumers in the [place] and therefore [employer] does not warrant that uses outside of the [place] are appropriate, unless specifically indicated otherwise. [employer]'s drug information does not endorse drugs, diagnose patients or recommend therapy. [employer] drug information isan informational resource designed to assist licensed healthcare practitioners in caring for their p atients and/or to serve consumers viewing this service as a supplement to, and not a substitute for, the expertise, skill, knowledge and judgment of healthcare practitioners. The absence of a warningfor a given drug or drug combination in no way should be construed to indicate that the drug or drug combination is safe, effective or appropriate for any given patient. [facility] does not assume any responsibility for any aspect of healthcare administered with the aid of information [facility] provides. The information contained herein is not intended to cover all possible uses, directions, precautions, warnings, drug interactions, allergic reactions, or adverse effects. If you have questions about the drugs you are taking, check with your doctor, nurse or pharmacist. Copyright 8690-1312 [facility]. Version: 20.. Revision Date: 02/11/2022. Education Materials Dental Pain A crack or cavity in a tooth can cause tooth pain. This is because the crack or cavity exposes the sensitive inner area of the tooth. An infection in the gum or the root of the tooth can cause pain and swelling. The pain is often made worse when you drink hot or cold beverages. It can also be worsewhen you bite on hard foods. Pain may spread from the tooth to your ear or the area of the jaw on the same side. Home care Follow these tips when caring for yourself at home: Don't have hot and cold foods and drinks. Your tooth may be sensitive to changes in temperature. Use toothpaste made for sensitive teeth. [place] gently up and down instead of sideways. Brushing sideways can wear away root surfaces if they are exposed. If your tooth is chipped or cracked, or if there is a large open cavity, put oil of cloves directlyon the tooth to relieve pain. You can buy oil of cloves at drugstores. Some pharmacies carry an afva-cwz-rrfnxua toothache kit. This contains a paste that you can put on the exposed tooth to make it less sensitive. Put a cold pack on your jaw over the sore area to help reduce pain. You may use flyu-lky-ceqrbds medicine to ease pain, unless your doctor prescribed another medicine.If you have chronic liver or kidney disease, talk with your healthcare provider before using acetaminophen or ibuprofen. Also talk with your provider if you ve had a stomach ulcer or GI bleeding. If you have signs of an infection, you will be given an antibiotic. Take it as directed. Follow-up care Follow up with your dentist, or as advised. Your pain may go away with the treatment given today. But only a dentist can fully look at and treat the cause of your pain. This will keep the pain from coming back. Call 911 Call 911 if any of these occur: Unusual drowsiness Headache or stiff neck Weakness or fainting Difficulty swallowing or breathing When to seek medical advice Call your health care provider right away if any of these occur: Your face becomes swollen or red Pain gets worse or spreads to your neck Fever of 100.4 F (38.0 C) or higher, or as directed by your healthcare provider Pus drains from the tooth [id number] The [employer]. [address] [place] [address], [place] [address]. All rights reserved. This information is not intended as a substitute for professional medical care. Always follow yourhealthcare professional's instructions. Additional Information VACCINATE! IT SAVES LIVES! Members of the community who have not yet received the COVID-19 vaccine and would like to receive it can visit one of [facility] vaccine clinics. There are many vaccine clinic locations within the [facility]. For locations and available times, please visit [email or web address]. It is important to note that some COVID mobile vaccine clinics are held outdoors and may be canceled in rainy orstormy conditions. To learn more about pediatric vaccinations (ages 5-11), we invite you to visit the [facility] webpage. [email or web address] learn more about the COVID-19 vaccine, we invite you to visit the [facility] website for a list of frequently asked questions. [email or web address] [facility] Patient Portal Access Instructions: Stay connected with your healthcare team and access your personal medical information anytime with the [facility] Patient Portal. If you would like a full copy of your medical records please contact the [facility] Medical Records Department Thursday through Thursday between 8a.m. and 4:30p.m. Please follow the directions below to access the portal: 1.Access the email account you provided upon registration to the [facility].2.Look for an invitation email from [facility].3.Open the email and access the invitation link: Accept Invitation to [facility]4.Fill in the required rothman to create your account. Sign into [email or web address] with your username and password that you created in the above steps to stay up to date. You can then view a summary of results, a summary of your visits, and the ability to download your summaries to your computer or send the information securely to a physician. Remember that your healthcare information is confidential, so carefully consider who you will allow to register on the [facility] Patient Portal for access to your information. You can also access the [facility] Patient Portal on the [employer]. Simply click on Health Records under [employer] and then click on the [facility] logo. HOW TO SAFELY DISPOSE OF PRESCRIPTION MEDICATIONS Please use one of the following methods to safely dispose of your unused medications. 1.Use a drug disposal kit: the drug disposal pouch allows you to safely discard your old and unuseddrugs. Ask your nurse to give you one when you are discharged.2.Visit a local take-back location: Many local pharmacies and police departments have programs that collect old and unwanted prescriptiondrugs. Call your local pharmacy or go to http://bit.The 3Doodler/2R0Xp5r to find one close to you.3.Make use of household items: Use cat litter or old coffee grounds to dispose medications if other options arenot available. Mix your drugs with these household products, seal them in an airtight container andthrow it into the garbage. Call [facility]: [phone] to be sure your drugs can be disposed of in this way. Some medicines may require a different approach.4.Never flush your medications down the toilet. IF YOU HAVE BEEN PRESCRIBED AN OPIOIDS FOR PAIN If you have been prescribed an opioid (such as hydrocodone, oxycodone or morphine), it is critical to understand the possible side effects and risks of opioid pain medications. Even when taken as directed, opioids can have several side effects including: Tolerance, meaning you might need to take more of a medication for the same pain relief. Nausea, vomiting and/or constipation. Sleepiness, dizziness, dry mouth, confusion, depression or itching. Physical dependence, meaning you have withdrawal symptoms when a medication is stopped ? this can develop within a few days. KNOW YOUR RESPONSIBILITIES It is important to know exactly how much and how often to take the opioid pain medications you are prescribed. Never take opioids in higher amounts or more often than prescribed. Do not combine opioids with alcohol or other drugs that cause drowsiness, such as benzodiazepines, also known as benzos,including diazepam and alprazolam, muscle relaxants or sleep aids. Never sell or share prescriptionopioids. This is illegal. Store opioids in a secure place and out of reach of others (including children, family, friends and visitors). The last page(s) of this document has been signed and retained as a CHART COPY Signatures Patient Education Materials Dental Pain Medication Leaflets penicillin V potassium (oral), acetaminophen and hydrocodone, naproxen My discharge plan and instructions have been reviewed and explained to me and I,EFRAIN HAMM understand my current condition and have read and understand these discharge instructions. I have receiveda written copy of the plan/instructions. If I have questions, I am aware that I should contact my do ctor. 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 States 101.9F one day. Coughing, bringing up phlegm. States CXR showed 2 spots. coivd tesing was negative. Usually doesn't get sick much. CXR: Bibasilar opacities, right more than left, suggesting infiltrates or atelectasis. Negative Covid testing. Given Rx for Levaquin 500mg X 10 days. 4th day started feeling better, back to normal now. Democrat Diabetes Mellitus Type 2: Current medications: Dulaglutide 0.75mg weekly Taking medication as directed consistently? Yes Medical Issues / Complications: hypertension and hyperlipidemia Checking blood sugars at home? No. Didn't get meter. Watching diet? Yes Physical Activity: Regular Hypoglycemic spells? No Any visual disturbance? No Chest pain? No New numbness, tingling or loss of sensation? No Any recent foot problems, sores or rashes? No Any recent or sudden weight loss? No Change in urination? No. If yes: Any recent illness? No HBA1C: Hemoglobin A1C (%) Date Value 01/23/2022 8.0 08/05/2021 10.2 03/16/2020 10.4 ) CMP: Glucose 128 01/23/2022 BUN 15 01/23/2022 Creatinine 0.82 01/23/2022 Sodium 139 01/23/2022 Potassium 4.3 01/23/2022 Chloride 104 01/23/2022 CO2 22 01/23/2022 Protein, Total 6.9 06/29/2021 Albumin 4.2 06/29/2021 Calcium 9.2 01/23/2022 Alkaline Phosphatase 81 06/29/2021 Bilirubin, Total 0.5 06/29/2021 AST 15 06/29/2021 ALT 16 06/29/2021 Last 2 Encounter Wt Readings: Date: Wt: 02/14/2022 90.7 kg (200 lb) 10/25/2021 91.9 kg (202 lb 9.6 oz) Hyperlipidemia: Current medication Atorvastatin 20mg daily HS Taking medication consistently No Observing low cholesterol high fiber diet not really Muscle aches No Stomach complaints/ diarrhea No Last 2 Lipids: Component Latest Ref Rng & Units 06/29/2021 01/23/2022 Cholesterol, Total <200 mg/dL 285 (H) 276 (H) Triglyceride <150 mg/dL 186 (H) 157 (H) HDL Cholesterol >39 mg/dL 36 (L) 40 LDL Cholesterol <100 mg/dL 212 (H) 205 (H) Non HDL Cholesterol <130 mg/dL 249 (H) 236 (H) Fasting Time hrs 12 12 VLDL Cholesterol <30 mg/dL 37 (H) 31 (H) TC:HDL Ratio <5.10 7.92 (H) 6.90 (H) LDL:HDL Ratio <2.54 5.89 (H) 5.13 (H) Smoking about 1 PPD since he was treated for pneumonia, down from 1.5 PPD. Didn't take wellbutrin because a friend had a problem with it. HISTORIES FAMILY HISTORY Problem Relation Age of Onset Diabetes Father PAST MEDICAL HISTORY Diagnosis Date Obese body habitus No past surgical history on file. Social History Tobacco Use Smoking status: Current Every Day Smoker Packs/day: 1.00 Years: 30.00 Pack years: 30.00 Smokeless tobacco: Never Used Tobacco comment: 1-2 ppd. Wants to quit Vaping Use Vaping Use: Never used Substance Use Topics Alcohol use: Not Currently Drug use: Never ACTIVE PROBLEM LIST New Onset Type 2 Diabetes Mellitus (Hcc) Current Outpatient Medications Medication Sig Dispense Refill ascorbic acid (VITAMIN C ORAL) Take by mouth. ZINC ORAL Take by mouth. dulaglutide (TRULICITY) 0.75 mg/0.5 mL pen injector Inject 0.75 mg subcutaneously one time a week. 4 Each 2 Cholecalciferol, Vitamin D3, 50 mcg (2,000 unit) cap Take 1 capsule by mouth once daily. 90 capsule3 atorvastatin (LIPITOR) 20 mg tablet Take 1 tablet by mouth daily at bedtime. For cholesterol. 90 tablet 1 buPROPion XL (WELLBUTRIN XL) 150 mg 24 hr tablet Take 1 tablet by mouth once daily. (Patient not taking: Reported on 02/14/2022 ) 30 tablet 5 nicotine (NICODERM) 21 mg/24 hr Apply 1 Patch as directed every 24 hours. (Patient not taking: Reported on 02/14/2022 ) 30 Patch 1 No current facility-administered medications for this visit. DILATED RETINAL EXAM Never done COLORECTAL CANCER SCREENING Never done LUNG CANCER SCREENING Never done EXAM: BP 128/74 Pulse 77 Resp 20 Wt 90.7 kg (200 lb) SpO2 96% BMI 29.75 kg/m Pleasant well appearing adult man in no acute distress. Alert and oriented all spheres. Normal affect and cognition. Speech normal. No deficits to learning or comprehension. Skin warm, dry, pink to lips and nailbeds. Normal turgor. Respirations regular and unlabored. HEENT: NCAT. No scleral icterus or conjunctival injection. TM's clear. Nose and oropharynx free from injection or lesion. Oral membranes moist and pink. No cervical lymph nodes. Thyroid non-tender, no masses, or enlargement. Carotids pulses 2+/4+ without bruits. No JVD with HOB at 30 degrees. Chest is normal shape. Lungs are clear to all rothman with good air exchange through out. Left basilar crackles cleared with cough. HRRR without murmur or gallop. No lifts, heaves, or rubs. Extrem: no clubbing, cyanosis, edema. Distal pulses 2+/4, prompt capillary refill. ASSESSMENT/PLAN: 1. Uncontrolled type 2 diabetes mellitus with hyperglycemia (HCC) - ICD9: 250.02, ICD10: E11.65 (primary diagnosis) Continue diet changes Increase trulicity to 1.5mg and recheck hgba1c in 3 mo nths. - HGB A1C - TRULICITY 1.5 MG/0.5 ML SUBCUTANEOUS PEN INJECTOR - HOME BLOOD GLUCOSE MONITOR 2. Screening for colon cancer - ICD9: V76.51, ICD10: Z12.11 - COLOGUARD 3. Tobacco use disorder - ICD9: 305.1, ICD10: F17.200 - Cessation encouraged. - Physiologic and physical aspects of tobacco addiction as well as strategies for quitting were discussed. - Counseling was given focusing on the harmful effects of this addiction especially given the patient's medical condition(s) which will be worsened because of the chemicals in tobacco. Start bupropion for 2 weeks, then started on nicotine patches and remove all cigarettes and paraphernalia. Educated on appropriate Application of patches, common side effects. Follow-up as needed - BUPROPION XL 150 MG TAB - NICOTINE 21 MG/24 HR DAILY TRANSDERMAL PATCH 4. Hyperlipidemia, mixed - ICD9: 272.2, ICD10: E78.2 - good control - Increase dose of atorvastatin (Lipitor) 40 mg - LIPID PANEL BASIC - ATORVASTATIN 40 MG TABLET - CK CREATINE KINASE - ALT/SGPT 5. [place] cardiac risk >20% in next 10 years - ICD9: V49.89, ICD10: Z91.89 - LIPID PANEL BASIC - ATORVASTATIN 40 MG TABLET 6. Community acquired pneumonia, bibasilar - ICD9: 486, ICD10: J18.9 Resolved clinically F/u 6 months Brendon Arroyo PA-C [facility] No data available for this section [facility] Evaluation noteNo assessment information available [facility] Work Phone: Evaluation note* Diagnosis Uncontrolled type 2 diabetes mellitus with hyperglycemia (HCC)- Primary Screening for colon cancer Special screening for malignant neoplasms, colon Tobacco use disorder Hyperlipidemia, mixed Mixed hyperlipidemia [place] cardiac risk >20% in next 10 years Other specified conditions influencing health status Community acquired pneumonia, bibasilar documented in this encounter [facility] note* Diagnosis Uncontrolled type 2 diabetes mellitus with hyperglycemia (HCC)- Primary documented in this encounter [facility] note* Diagnosis Tobacco use disorder- Primary Hyperlipidemia, mixed Mixed hyperlipidemia Uncontrolled type 2 diabetes mellitus with hyperglycemia (HCC) Gastroesophageal reflux disease without esophagitis Esophageal reflux Actinic keratosis documented in this encounter [facility] note* Diagnosis Uncontrolled type 2 diabetes mellitus with hyperglycemia (HCC)- Primary [facility] Diagnosis Dupuytren contracture of right hand- Primary Hyperlipidemia, mixed Mixed hyperlipidemia Uncontrolled type 2 diabetes mellitus with hyperglycemia (HCC) Gastroesophageal reflux disease without esophagitis Esophageal reflux Neoplasm of uncertain behavior of skin of face Neoplasm of uncertain behavior of skin Special screening examination for viral disease Special screening examination for unspecified viral disease documented in this encounter [facility] note* Diagnosis Dupuytren contracture of right hand documented in this encounter [facility] note* Diagnosis Trigger ring finger of right hand- Primary Trigger finger (acquired) Dupuytren's disease of palm Contracture of palmar fascia documented in this [facility] note* Diagnosis Trigger ring finger of right hand- Primary Trigger finger (acquired) Dupuytren's contracture of right hand Contracture of palmar fascia Trigger ring finger of right hand Trigger finger (acquired) Dupuytren's contracture of right hand Contracture of palmar fascia documented in this encounter [facility] note* Diagnosis Trigger ring finger of right hand- Primary Trigger finger (acquired) Dupuytren's contracture of right hand Contracture of palmar fascia [facility]* Diagnosis Trigger ring finger of right hand- Primary Trigger finger (acquired) Dupuytren's contracture of right hand Contracture of palmar fascia documented [facility] this [facility] Additional Instructions Try to get a home portable pulse oximeter and closely watch your oxygen levels periodically. If you stay below 90% for more than a minute or so, and/or you are feeling like your breathing is getting worse, return to the emergency department for further evaluation.[facility] Work Phone: Hospital Discharge instructions Additional Instructions Be sure to take the entire course of antibiotics. Please follow-up with dentistry as soon as you are able. Continue to monitor your blood sugars and follow-up with your doctor. 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 [facility] Work Phone: Reason for visit Narrative* Diagnostic Procedure Only (Routine) - Closed Specialty Diagnoses / Procedures Referred By Dora davison Referred To Contact XR IMAGING Diagnoses Dupuytren contracture of right hand Procedures XR HAND GENERAL 3V PA/LAT/OBL RIGHT RADEX HAND MINIMUM 3 VIEWS Kaela Martinez, DRAGLINE OPERATOR HELPER.OFFICE SUPPORT SPECIALIST [address] [facility] [place] [address] [place] [address] Referral ID Status Reason Start Date Expiration Date V isits Requested Visits Authorized [id number] Closed Auto-Generate d Referral 08/15/2024 09/14/2025 1 1 [facility] Summary Purpose Family History No Family History Records FoundNo Family History Records FoundNo Family History Records FoundNo Family History Records Found No data available for this section No Family History Records Found Advance Directives No Advanced Directives Records Found Advance Directive Response Recorded Date/ Time Living Will No February 05, 2022 3: 46pm Power of Linoleum Layer Apprentice No February 05, 2022 3:46pm Advance Directive Response Recorded Date/ Time Living Will No July 18 7:23am Power of Linoleum Layer Apprentice No July 18, 2023 7:23am Chief Complaint and Reason for Visit Chief Complaint BODY ACHES,HEADACHE, FATIGUE Chief Complaint DENTAL Reason for Referral Specialty Diagnoses / Procedures Referred By Contac t Referred To Contact Podiatry Diagnoses Uncontrolled type 2 diabetes mellitus with hyperglycemia (HCC) Procedures CONSULT TO PODIATRY OFFICE/OUTPATIENT [facility] 60 MINUTES Kaela Martinez APRN.OFFICE SUPPORT SPECIALIST [address] [place] [address] Referral ID Status Reason Start Date Expiration Date Visits Requested Visits Authorized [id number] Authorized PCP Requested Referral 4 08/15/2025 1 1 Specialty Diagnoses / Procedures Referred By Contac t Referred To Contact Diagnoses Dupuytren contracture of right hand Kaela Martinez APRN.OFFICE SUPPORT SPECIALIST [address] [place] [address] Referral ID Status Reason Start Date Expiration Date V isits Requested Visits Authorized [id number] Pending Review 08/15/2024 10/14/2024 1 1 Specialty Diagnoses / Procedures Referred By Contac t Referred To Contact Dermatology Diagnoses Neoplasm of uncertain behavior of skin of face Procedures CONSULT TO DERMATOLOGY Kaela Martinez APRN.OFFICE SUPPORT SPECIALIST [address] [place] [address] Referral ID Status Reason Start Date Expiration Date Visits Requested Visits Authorized [id number] Ref Not Required PCP Requested Referral 4 08/15/2025 1 1 Specialty Diagnoses / Procedures Referred By Contac t Referred To Contact Orthopedics Diagnoses Dupuytren contracture of right hand Procedures CONSULT PANEL TO ORTHOPAEDICS OFFICE/OUTPATIENT [facility] 60 MINUTES Kaela Martinez APRN.OFFICE SUPPORT SPECIALIST [address] [place] [address] Referral ID Status Reason Start Date Expiration Date Visits Requested Visits Authorized [id number] Authorized PCP Requested Referral 4 08/15/2025 1 1 Specialty Diagnoses / Procedures Referred By Contac t Referred To Contact XR IMAGING Diagnoses Dupuytren contracture of right hand Procedures XR HAND GENERAL 3V PA/LAT/OBL RIGHT RADEX HAND MINIMUM 3 VIEWS Kaela Martinez APRN.OFFICE SUPPORT SPECIALIST [address] [place] [address] [place] [address] Referral ID Status Reason Start Date Expiration Date V isits Requested Visits Authorized [id number] Closed Auto-Generate d Referral 08/15/2024 09/14/2025 1 1 Specialty Diagnoses / Procedures Referred By Contac t Referred To Contact Brendon Arroyo PA-C [address] [place] [address] Referral ID Status Reason Start Date Expiration Date V isits Requested Visits Authorized [id number] Pending Review 1 1 Specialty Diagnoses / Procedures Referred By Contac t Referred To Contact Rohit Rogers MD [address] [place] [address] Referral ID Status Reason Start Date Expiration Date Visits Re quested Visits Authorized [id number] Closed 1 1 Specialty Diagnoses / Procedures Referred By Contac t Referred To Contact Diagnoses Uncontrolled type 2 diabetes mellitus with hyperglycemia (HCC) Kaela Martinez, DRAGLINE OPERATOR HELPER.DAIRY BACTERIOLOGIST [address] [place] [address] Referral ID Status Reason Start Date Expiration Date Visits Re quested Visits Authorized [id number] Closed 1 1 Additional Source Comments (unrecognized sect ion and content) No Status Records FoundNo Status Records FoundNo Status Records FoundNo Status Records FoundNo Status Records Found INFORMATION SOURCE (unrecogn ized section and content) DATE CREATED AUTHOR 03/26/2018 [facility] DATE CREATED AUTHOR AUTHOR'S ORGANIZ ATION 02/07/2022 [facility] DATE CREATED AUTHOR AUTHOR'S ORGANIZ ATION 2022 [facility] ([place]) DATE CREATED AUTHOR AUTHOR'S ORGANIZ ATION 12/20/2024 [facility] DATE CREATED AUTHOR AUTHOR'S ORGANIZ ATION 05/26/2025 [facility] Goals (unrecognized section and content) Goals may be documented in a n alternate section No data available for this section No data available for this sectionGoals may be documented in an alternate section No data available for this section Source Comments (unrecognize d section and content) In the event this informatio n is protected by the Federal Confidentiality of Alcohol and Drug Abuse Patient Records regulations: The Federal rules restrict any use of the information to criminally investigate or prosecute any alcohol or drug abuse patient.[facility] the event this information is protected by the Federal Confidentiality of Alcohol and Drug Abuse Patient Records regulations: The Federal rules restrict any use of the information to criminally investigate or prosecute any alcohol or drug abuse patient.[facility] the event this information is protected by the Federal Confidentiality of Alcohol and Drug Abuse Patient Records regulations: The Federal rules restrict any use of the information to criminally investigate or prosecute any alcohol or drug abuse patient.[facility] the event this information is protected by the Federal Confidentiality of Alcohol and Drug Abuse Patient Records regulations: The Federal rules restrict any use of the information to criminally investigate or prosecute any alcohol or drug abuse patient.[facility] the event this information is protected by the Federal Confidentiality of Alcohol and Drug Abuse Patient Records regulations: The Federal rules restrict any use of the information to criminally investigate or prosecute any alcohol or drug abuse patient.[facility] the event this information is protected by the Federal Confidentiality of Alcohol and Drug Abuse Patient Records regulations: The Federal rules restrict any use of the information to criminally investigate or prosecute any alcohol or drug abuse patient.[facility] the event this information is protected by the Federal Confidentiality of Alcohol and Drug Abuse Patient Records regulations: The Federal rules restrict any use of the information to criminally investigate or prosecute any alcohol or drug abuse patient.[facility] Anderson[facility] the event this information is protected by the Federal Confidentiality of Alcohol and Drug Abuse Patient Records regulations: The Federal rules restrict any use of the information to criminally investigate or prosecute any alcohol or drug abuse patient.[facility] the event this information is protected by the Federal Confidentiality of Alcohol and Drug Abuse Patient Records regulations: The Federal rules restrict any use of the information to criminally investigate or prosecute any alcohol or drug abuse patient.[facility] the event this information is protected by the Federal Confidentiality of Alcohol and Drug Abuse Patient Records regulations: The Federal rules restrict any use of the information to criminally investigate or prosecute any alcohol or drug abuse patient.[facility] the event this information is protected by the Federal Confidentiality of Alcohol and Drug Abuse Patient Records regulations: The Federal rules restrict any use of the information to criminally investigate or prosecute any alcohol or drug abuse patient.[facility] the event this information is protected by the Federal Confidentiality of Alcohol and Drug Abuse Patient Records regulations: The Federal rules restrict any use of the information to criminally investigate or prosecute any alcohol or drug abuse patient.[facility] the event this information is protected by the Federal Confidentiality of Alcohol and Drug Abuse Patient Records regulations: The Federal rules restrict any use of the information to criminally investigate or prosecute any alcohol or drug abuse patient.[facility] the event this information is protected by the Federal Confidentiality of Alcohol and Drug Abuse Patient Records regulations: The Federal rules restrict any use of the information to criminally investigate or prosecute any alcohol or drug abuse patient.[facility] the event this information is protected by the Federal Confidentiality of Alcohol and Drug Abuse Patient Records regulations: The Federal rules restrict any use of the information to criminally investigate or prosecute any alcohol or drug abuse patient.[facility] Anderson[facility] the event this information is protected by the Federal Confidentiality of Alcohol and Drug Abuse Patient Records regulations: The Federal rules restrict any use of the information to criminally investigate or prosecute any alcohol or drug abuse patient.[facility] Anderson[facility] the event this information is protected by the [facility] Confidentiality of Alcohol and Drug Abuse Patient Records regulations: The Federal rules restrict any use of the information to criminally investigate or prosecute any alcohol or drug abuse patient.[facility] Anderson[facility] the event this information is protected by the Federal Confidentiality of Alcohol and Drug Abuse Patient Records regulations: The Federal rules restrict any use of the information to criminally investigate or prosecute any alcohol or drug abuse patient.[facility] Care Teams (unrecognized sec tion and content) Party Bus Driver Relationship Specialty Start Date End Date Brendon Arroyo PA-C [address] [place] [address] PCP - General Family Practice 06/24/21 Party Bus Driver Relationship Specialty Start Date End Date Brendon Arroyo PA-C [address] [place], [place] [id number] PCP - General Family Medicine 06/24/21 Party Bus Driver Relationship Specialty Start Date End Date Brendon Arroyo PA-C [address] [place], [place] [id number] PCP - General Family Medicine 06/24/21 Team Status: Active Member Role Status Dates No Primary Care Physician Family Provider Active No Primary Care Physician Primary Care Provider Active Team Status: Inactive Member Role Status Dates No Primary Care Physician Primary Care Provider Active Dr. Hossein Lord , DO Emergency Provider Active Party Bus Driver Relationship Specialty Start Date End Date Brendon Arroyo PA-C [address] [place] [address] PCP - General Family Medicine 06/24/21 Party Bus Driver Relationship Specialty Start Date End Date Brendon Arroyo PA-C [address] [place] [address] PCP - General Family Medicine 06/24/21 Party Bus Driver Relationship Specialty Start Date End Date Brendon Arroyo PA-C [address] [place] [address] PCP - General Family Medicine 06/24/21 Party Bus Driver Relationship Specialty Start Date End Date Brendon Arroyo PA-C [address] [place] [address] PCP - General Family Medicine 06/24/21 Party Bus Driver Relationship Specialty Start Date End Date Kaela Martinez APRN.OFFICE SUPPORT SPECIALIST [address] [place] [address] PCP - General Family Medicine 08/15/24 Party Bus Driver Relationship Specialty Start Date End Date Kaela Martinez APRN.OFFICE SUPPORT SPECIALIST [address] [place] [address] PCP - General Family Medicine 08/15/24 Party Bus Driver Relationship Specialty Start Date End Date Kaela Martinez APRN.OFFICE SUPPORT SPECIALIST [address] [place] [address] PCP - General Family Medicine 08/15/24 Party Bus Driver Relationship Specialty Start Date End Date Kaela Martinez, DRAGLINE OPERATOR HELPER.OFFICE SUPPORT SPECIALIST [address] [facility], [place] [id number] PCP - General Family Medicine 08/15/24 Party Bus Driver Relationship Specialty Start Date End Date Kaela Martinez, DRAGLINE OPERATOR HELPER.OFFICE SUPPORT SPECIALIST [address] [facility], [place] [address] PCP - General Family Medicine 08/15/24 Party Bus Driver Relationship Specialty Start Date End Date SuppKaela whittaker, DRAGLINE OPERATOR HELPER.OFFICE SUPPORT SPECIALIST [address] [place] [address] PCP - General Family Medicine 08/15/24 Party Bus Driver Relationship Specialty Start Date End Date Kaela Martinez, DRAGLINE OPERATOR HELPER.OFFICE SUPPORT SPECIALIST [address] [facility], [place] [id number] PCP - General Family Medicine 08/15/24 Care Team (unrecognized sect ion and content) Care Team Personnel Name: PHYSICIAN, NONE Position: Physician Member Role: Primary Care Physician Name: ELICEO Tamayo Position: RN Member Role: ED RN Name: INDU BROWN MD Position: ED Physician Member Role: ED Physician Address: Address: [facility] [address] [place] [address]- Care Team Personnel Name: PHYSICIAN, NONE Position: Physician Member Role: Primary Care Physician Name: STEPHENIE PHILLIPS DO Position: ED Physician Member Role: Attending Physician Address: Address: [address] [facility] [place] [address]- Reason for Visit (unrecogniz ed section and content) Reason Comments Results Reason Comments Insurance Authorization Trulicity Reason Comments Follow Up Reason Comments Medication Problem Reason Comments Rx issue Reason Comments 6 Month Exam Reason Comments Insurance Authorization Reason Comments New Musculoskeletal Problem Specialty Diagnoses / Procedures Referred By Dora t Referred To Contact Orthopedics Diagnoses Dupuytren contracture of right hand Procedures CONSULT PANEL TO ORTHOPAEDICS OFFICE/OUTPATIENT NEW HIGH MDM 60 MINUTES Kaela Martinez, SIDNEY.OFFICE SUPPORT SPECIALIST [address] [place] [address] Referral ID Status Reason Start Date Expiration Date V isits Requested Visits Authorized [id number] Closed PCP Requested Referral 08/15/2024 08/15/2025 1 1 Reason Comments Schedule Surgery Reason Comments Post Op 1 week 4 days post o p Right ring trigger finger release and Right ring palmar fasciectomy Reason Comments Post Op 4 weeks 4 days post op Right ring trigger finger release, and Right ring finger palmar fasciectomy FOR RECORDS PERTAINING TO PATIENTS WHO ARE OR HAVE BEEN ENROLLED IN A CHEMICAL DEPENDENCY/SUBSTANCEABUSE PROGRAM, SOME INFORMATION MAY BE OMITTED. This clinical summary was aggregated from multiple sources. Caution should be exercised in using it in the provision of clinical care. This summary normalizes information from multiple sources, and as a consequence, information in this document may materially change the coding, format and clinical context of patient data. In addition, data may be omitted in some cases. CLINICAL DECISIONS SHOULD BE BASED ON THE PRIMARY CLINICAL RECORDS. [employer] provides no warranty or guarantee of the accuracy or completeness of information in this document.
[2025-07-22 11:49] VITALS: BP 152/81; PULSE 73; RESP 18; TEMP 36.6; O2SAT 98
== END 2025-07-22 11:49 | disposition home or self-care (01) ==
PROVIDERS: Emergency Provider Emergency Medicine; Visit Provider Emergency Medicine
DX: K02.9 Dental caries, unspecified (principal); E11.9 Type 2 diabetes mellitus without complications; F17.210 Nicotine dependence, cigarettes, uncomplicated
CPT/HCPCS: 99282